=== PATIENT | male | born 1960 | race Caucasian/White ===

== ENCOUNTER 2016-06-24 16:21 | Inpatient (IN) | payer BC ==
[~2016-06-24] VITALS: Ht 182.9 cm; Wt 115.1 kg
[~2016-06-24 16:21] MED LIST: CLIN1CAP4 PO; GABA300C8 PO; INSLANTI SC; INSLISPI; LOSA50TA6 PO
[2016-06-24 17:09] LABS: Basophils # (auto) 0 uL; Basophils % (auto) 0.4 % (0.0-2.0); Eosinophils # (auto) 0.3 uL; Eosinophils % (auto) 4.2 % (0.0-7.0); Hematocrit 40.5 % (41.0-53.0); Hemoglobin 13.2 g/dL (13.5-17.5); Lymphocytes # (auto) 1.9 uL; Mean Corpuscular Hemoglobin 28.2 pg (28.0-32.0); Mean Corpuscular Hgb Conc. 32.5 g/dL (32.0-36.0); Mean Corpuscular Volume 86.7 fL (80.0-100.0); Mean Platelet Volume 7.4 fL (7.4-10.4); Monocytes # (auto) 0.5 uL; Neutrophils # (auto) 5.1 uL; Neutrophils % (auto) 65.4 % (37.0-80.0); Platelet Count (auto) 254 10^3/uL (140-450); Red Cell Distribution Width 15.8 % (11.6-16.0); White Blood Cell 7.8 10^3/uL (4.4-10.8)
[2016-06-24 17:27] LABS: Albumin 3.6 g/dL (3.4-5.0); BUN/Creatinine Ratio 29.6; Bilirubin, Total 0.2 mg/dL (0.2-1.0); Calcium 8.6 mg/dL (8.5-10.1); Potassium 3.8 mmol/L (3.5-5.1); Total Protein 7.3 g/dL (6.4-8.2)
[2016-06-24 17:33] LABS: INR 0.98 (0.9-1.15); Partial Thromboplastin Time 27.6 sec (22.64-33.71); Prothrombin Time 10.1 sec (9.37-12.3)
[2016-06-25] MEDS ORDERED: SODIUM CHLORIDE 0.9% 1,000 ML IV SCH (00:11)
[2016-06-25] MEDS ORDERED: DEXTROSE (50%) 50ML SYRG IV PRN (00:15)
[2016-06-25] MEDS ORDERED: ONDANSETRON HCL 4 MG/2 ML VIAL IV PRN (00:15)
[2016-06-25] MEDS ORDERED: HYDROcodone-ACET 5/325MG TAB PO PRN (00:15)
[2016-06-25] MEDS ORDERED: MORPHINE SULF INJ 2 MG/ML SYRINGE 1ML IV PRN (00:15)
[2016-06-25] MEDS ORDERED: ACETAMINOPHEN 325 MG TAB PO PRN (00:15)
[2016-06-25] MEDS ORDERED: cloNIDine HCL 0.1 MG TAB PO PRN (00:15)
[2016-06-25 01:30] VITALS: BP 156/93
[2016-06-25 02:29] VITALS: BP 156/93
[2016-06-25 05:30] VITALS: BP 164/80
[2016-06-25] MEDS: ACCU-CHEK COMFORT CURVE STRIP VI SCH ×2 (06:00→11:44)
[2016-06-25] MEDS: InsuLIN REG 1unit/0.01ml Soln (100units/ml) SC SCH ×2 (06:00→11:44)
[2016-06-25 09:00] VITALS: BP 171/101
[2016-06-25] MEDS ORDERED: FAMOTIDINE 20 MG TAB PO SCH (10:00)
[2016-06-25] MEDS ORDERED: NIFEdipine ER 30 MG TAB PO SCH (10:00)
[2016-06-25] MEDS ORDERED: LOSARTAN POTASSIUM 50 MG TAB PO SCH (10:00)
[2016-06-25] MEDS ORDERED: fentaNYL CITRATE 100 MCG/2 ML VL ONE (10:39)
[2016-06-25] MEDS ORDERED: ONDANSETRON HCL 4 MG/2 ML VIAL ONE (10:39)
[2016-06-25] MEDS ORDERED: MIDAZOLAM HCL 1MG/1ML-2 ML VIAL ONE (10:39)
[2016-06-25] MEDS ORDERED: SODIUM CHLORIDE LOCK 20 ML ONE (10:39)
[2016-06-25] MEDS ORDERED: PROPOFOL 10 MG/ML 20 ML IV ONE (10:39)
[2016-06-25] MEDS ORDERED: ceFAZolin 1GM/50ML D5W 50 ML IV ONE (10:43)
[2016-06-25] MEDS ORDERED: ceFAZolin 1GM VL ONE (11:56)
[2016-06-25] MEDS ORDERED: BUPIVACAINE 0.75% INJ 10ML MPV SDV IJ ONE (11:56)
[2016-06-25] MEDS ORDERED: ACCU-CHEK COMFORT CURVE STRIP VI ONE (12:15)
[2016-06-25] MEDS ORDERED: PROMETHAZINE HCL 25 MG/ML 1ML IM ONE (12:15)
[2016-06-25] MEDS ORDERED: HYDROmorphone HCL 2 MG/ML VL IV PRN (12:15)
[2016-06-25 17:07] VITALS: BP 151/91
[2016-06-25 17:15] VITALS: BP 151/91
== END 2016-06-25 17:15 | disposition home or self-care (01) | DRG 465 ==
LOC: ER 16:25 → OVERFLOW 16:26 → CENTRAL 06-25 01:31
PROVIDERS: ADMIT Nurse Practitioner; ATTEND Internal Medicine
PROC: 0JBR0ZZ Excision of Left Foot Subcutaneous Tissue and Fascia, Open Approach (ICD-10-PCS; 2016-06-25)
PROC: 0JBQ0ZZ Excision of Right Foot Subcutaneous Tissue and Fascia, Open Approach (ICD-10-PCS; 2016-06-25)
PROC: 0JRQ0KZ Replacement of Right Foot Subcutaneous Tissue and Fascia with Nonautologous Tissue Substitute, Open Approach (ICD-10-PCS; 2016-06-25)
PROC: 0JR Subcutaneous Tissue and Fascia, Replacement (ICD-10-PCS; principal; 2016-06-25 11:41)
DX: T87.53 Necrosis of amputation stump, right lower extremity (principal); T87.54 Necrosis of amputation stump, left lower extremity; E11.621 Type 2 diabetes mellitus with foot ulcer; L97.519 Non-pressure chronic ulcer of other part of right foot with unspecified severity; L97.529 Non-pressure chronic ulcer of other part of left foot with unspecified severity; E78.5 Hyperlipidemia, unspecified; E11.42 Type 2 diabetes mellitus with diabetic polyneuropathy; Y83.5 Amputation of limb(s) as the cause of abnormal reaction of the patient, or of later complication, without mention of misadventure at the time of the procedure; E11.65 Type 2 diabetes mellitus with hyperglycemia; I10 Essential (primary) hypertension; E66.9 Obesity, unspecified; Z82.49 Family history of ischemic heart disease and other diseases of the circulatory system; Z83.3 Family history of diabetes mellitus; Z88.1 Allergy status to other antibiotic agents; Z79.899 Other long term (current) drug therapy; Z79.4 Long term (current) use of insulin; Z98.890 Other specified postprocedural states; Z82.3 Family history of stroke; Z89.412 Acquired absence of left great toe; Z89.411 Acquired absence of right great toe; Z68.34 Body mass index [BMI] 34.0-34.9, adult
CPT/HCPCS: 36415; 80053; 82962; 83036; 85025; 85049; 85610; 85730; 87081; 94761; J0690; J2250; J2405; J2704; J3490; Q4126

== ENCOUNTER 2016-09-23 21:01 | Inpatient (IN) | payer BC ==
[~2016-09-23] VITALS: Ht 182.9 cm; Wt 109.3 kg
[~2016-09-23 21:01] MED LIST changes: -CLIN1CAP4 PO
[2016-09-23 21:32] LABS: Basophils # (auto) 0 uL; Basophils % (auto) 0.4 % (0.0-2.0); Eosinophils # (auto) 0.3 uL; Eosinophils % (auto) 3.2 % (0.0-7.0); Hematocrit 39.5 % (41.0-53.0); Hemoglobin 13.6 g/dL (13.5-17.5); Lymphocytes # (auto) 1.9 uL; Lymphocytes % (auto) 20.2 % (10.0-50.0); Mean Corpuscular Hemoglobin 29.8 pg (28.0-32.0); Mean Corpuscular Hgb Conc. 34.5 g/dL (32.0-36.0); Mean Corpuscular Volume 86.5 fL (80.0-100.0); Mean Platelet Volume 7.5 fL (7.4-10.4); Monocytes # (auto) 0.6 uL; Monocytes % (auto) 5.7 % (0.0-12.0); Neutrophils # (auto) 6.8 uL; Neutrophils % (auto) 70.5 % (37.0-80.0); Platelet Count (auto) 291 10^3/uL (140-450); Red Cell Distribution Width 13.4 % (11.6-16.0); White Blood Cell 9.6 10^3/uL (4.4-10.8)
[2016-09-23 21:42] LABS: INR 0.99 (0.9-1.15); Prothrombin Time 10.7 sec (9.37-12.3)
[2016-09-23 21:51] LABS: Albumin 3.3 g/dL (3.4-5.0); BUN/Creatinine Ratio 15.8; Calcium 8.4 mg/dL (8.5-10.1); Potassium 3.8 mmol/L (3.5-5.1)
[2016-09-23 21:54] LABS: Bilirubin, Total 0.6 mg/dL (0.2-1.0); Total Protein 7.1 g/dL (6.4-8.2)
[2016-09-23] MEDS ORDERED: SODIUM CHLORIDE 0.9% 1,000 ML IV ONE (22:15)
[2016-09-24] MEDS ORDERED: SODIUM CHLORIDE 0.9% 1,000 ML IV SCH (04:43)
[2016-09-24] MEDS ORDERED: HYDROcodone-ACET 5/325MG TAB PO PRN (04:45)
[2016-09-24] MEDS ORDERED: ONDANSETRON HCL 4 MG/2 ML VIAL IV PRN (04:45)
[2016-09-24] MEDS ORDERED: TEMAZEPAM 15 MG CAP PO PRN (04:45)
[2016-09-24] MEDS ORDERED: DEXTROSE (50%) 50ML SYRG IV PRN (04:45)
[2016-09-24] MEDS ORDERED: MORPHINE SULF INJ 2 MG/ML SYRINGE 1ML IV PRN (04:45)
[2016-09-24] MEDS ORDERED: ACETAMINOPHEN 325 MG TAB PO PRN (04:45)
[2016-09-24] MEDS: ACCU-CHEK COMFORT CURVE STRIP VI SCH ×3 (05:31→18:00)
[2016-09-24] MEDS: CLINDAMYCIN 600MG IV 50 ML IV SCH ×2 (05:42→13:29)
[2016-09-24] MEDS: InsuLIN REG 1unit/0.01ml Soln (100units/ml) SC SCH ×3 (05:45→18:00)
[2016-09-24] MEDS ORDERED: LOSARTAN POTASSIUM 50 MG TAB PO SCH (10:00)
[2016-09-24] MEDS ORDERED: NIFEdipine ER 30 MG TAB PO SCH (10:00)
[2016-09-24] MEDS ORDERED: FAMOTIDINE 20 MG TAB PO SCH (10:00)
[2016-09-24] MEDS ORDERED: ceFAZolin 1GM VL ONE ×2 (10:29→11:18)
[2016-09-24] MEDS ORDERED: ceFAZolin 1GM/50ML D5W 50 ML IV ONE (11:15)
[2016-09-24] MEDS ORDERED: MIDAZOLAM HCL 1MG/1ML-2 ML VIAL ONE ×2 (11:57→12:00)
[2016-09-24] MEDS ORDERED: PROPOFOL 10 MG/ML 20 ML IV ONE (11:57)
[2016-09-24] MEDS ORDERED: fentaNYL CITRATE 100 MCG/2 ML VL ONE (11:57)
[2016-09-24] MEDS ORDERED: ONDANSETRON HCL 4 MG/2 ML VIAL IV ONE (12:30)
[2016-09-24] MEDS ORDERED: hydrALAZINE HCL 20 MG/ML VL IV PRN (12:30)
[2016-09-24] MEDS ORDERED: HYDROmorphone HCL 2 MG/ML VL IV PRN (12:30)
[2016-09-24] MEDS ORDERED: ePHEDrine SULFATE 50 MG/ML AMP IV PRN (12:30)
[2016-09-24 17:06] VITALS: BP 155/99
== END 2016-09-24 19:00 | disposition home or self-care (01) | DRG 623 ==
LOC: ER 21:03 → OVERFLOW 21:04 → WEST WING 09-24 05:45
PROVIDERS: ADMIT Nurse Practitioner; ATTEND Internal Medicine
PROC: 0JBQ0ZZ Excision of Right Foot Subcutaneous Tissue and Fascia, Open Approach (ICD-10-PCS; 2016-09-24)
PROC: 0HRNXK3 Replacement of Left Foot Skin with Nonautologous Tissue Substitute, Full Thickness, External Approach (ICD-10-PCS; 2016-09-24)
PROC: 0HRMXK3 Replacement of Right Foot Skin with Nonautologous Tissue Substitute, Full Thickness, External Approach (ICD-10-PCS; 2016-09-24)
PROC: 0JBR0ZZ Excision of Left Foot Subcutaneous Tissue and Fascia, Open Approach (ICD-10-PCS; principal; 2016-09-24 11:54)
DX: E10.621 Type 1 diabetes mellitus with foot ulcer (principal); E87.1 Hypo-osmolality and hyponatremia; E44.1 Mild protein-calorie malnutrition; L97.519 Non-pressure chronic ulcer of other part of right foot with unspecified severity; L97.529 Non-pressure chronic ulcer of other part of left foot with unspecified severity; E78.5 Hyperlipidemia, unspecified; E10.65 Type 1 diabetes mellitus with hyperglycemia; E10.22 Type 1 diabetes mellitus with diabetic chronic kidney disease; E10.21 Type 1 diabetes mellitus with diabetic nephropathy; I12.9 Hypertensive chronic kidney disease with stage 1 through stage 4 chronic kidney disease, or unspecified chronic kidney disease; N18.3 Chronic kidney disease, stage 3 (moderate); Z82.3 Family history of stroke; Z82.49 Family history of ischemic heart disease and other diseases of the circulatory system; Z83.3 Family history of diabetes mellitus; Z89.422 Acquired absence of other left toe(s); Z89.421 Acquired absence of other right toe(s); Z88.1 Allergy status to other antibiotic agents; Z79.4 Long term (current) use of insulin; Z68.32 Body mass index [BMI] 32.0-32.9, adult
CPT/HCPCS: 36415; 71010; 73700; 80053; 82962; 83036; 85025; 85610; 87070; 87075; 87077; 87081; 87186; 87205; 96360; J0690; J1815; J2250; J2704; J3490

== ENCOUNTER → 2017-12-03 | Day surgery (SDC) | payer BC ==
[~2017-12-03] MED LIST changes: +GABA-339 PO; +GABA300C10 PO; -GABA300C8 PO; +KETAMINE HCL 1 ML ONE; +METF-370 PO; +MIDAZOLAM HCL 1MG/1ML-2 ML VIAL ONE; +MORPHINE SULF INJ 2 MG/ML SYRINGE 1ML IV PRN; +NALOXONE HCL 0.4 MG/ML VIAL IV PRN; +NIFE90TA25 PO; +ONDANSETRON HCL 4 MG/2 ML VIAL IV ONE; +PROPOFOL 10 MG/ML 20 ML IV ONE; +SIMV-8 PO; +ceFAZolin 1GM VL ONE; +ceFAZolin 1GM/50ML 50 ML IV ONE
[2017-12-03 11:32] LABS: Basophils # (auto) 0.1 uL; Basophils % (auto) 0.9 % (0.0-2.0); Eosinophils # (auto) 0.2 uL; Eosinophils % (auto) 3.6 % (0.0-7.0); Hemoglobin 14.6 g/dL (13.5-17.5); Lymphocytes # (auto) 1.7 uL; Lymphocytes % (auto) 27.7 % (10.0-50.0); Mean Corpuscular Hemoglobin 29.1 pg (28.0-32.0); Mean Corpuscular Hgb Conc. 33.3 g/dL (32.0-36.0); Mean Corpuscular Volume 87.5 fL (80.0-100.0); Monocytes # (auto) 0.4 uL; Monocytes % (auto) 7.1 % (0.0-12.0); Neutrophils # (auto) 3.6 uL; Neutrophils % (auto) 60.7 % (37.0-80.0); Nucleated Red Blood Cells % 0.1 %; Platelet Count (auto) 180 10^3/uL (140-450); Red Blood Cells 5.03 10^6/uL (4.5-5.90); Red Cell Distribution Width 13.8 % (11.8-14.3)
[2017-12-03 11:45] LABS: BUN/Creatinine Ratio 25.5; Calcium 8.6 mg/dL (8.5-10.1); Potassium 4.9 mmol/L (3.5-5.1)
[2017-12-03 11:46] LABS: INR 0.93 (0.9-1.15); Partial Thromboplastin Time 29.4 sec (23.78-33.04)
[2017-12-03 14:45] VITALS: BP 138/81
== END | disposition home or self-care (01) ==
LOC: SUR 08:00
PROVIDERS: ATTEND Podiatrist Foot & Ankle Surgery
DX: E11.621 Type 2 diabetes mellitus with foot ulcer (principal); L97.519 Non-pressure chronic ulcer of other part of right foot with unspecified severity; F10.99 Alcohol use, unspecified with unspecified alcohol-induced disorder; N18.9 Chronic kidney disease, unspecified; E11.22 Type 2 diabetes mellitus with diabetic chronic kidney disease; I12.9 Hypertensive chronic kidney disease with stage 1 through stage 4 chronic kidney disease, or unspecified chronic kidney disease; E11.40 Type 2 diabetes mellitus with diabetic neuropathy, unspecified; E78.5 Hyperlipidemia, unspecified; G47.33 Obstructive sleep apnea (adult) (pediatric); K21.9 Gastro-esophageal reflux disease without esophagitis; Z87.891 Personal history of nicotine dependence; Z88.1 Allergy status to other antibiotic agents; Z82.3 Family history of stroke; Z83.3 Family history of diabetes mellitus; Z79.84 Long term (current) use of oral hypoglycemic drugs; Z79.2 Long term (current) use of antibiotics; Z79.899 Other long term (current) drug therapy
CPT/HCPCS: 15004; 15275; 36415; 71045; 80048; 82962; 85025; 85610; 85730; 87070; 87075; 87205; 88304; 88312; 88313; C9354; J0690; J2250; J2704

== ENCOUNTER 2018-01-20 06:09 | Inpatient (IN) | payer BC ==
[~2018-01-20] VITALS: Ht 182.9 cm; Wt 113.0 kg
[~2018-01-20 06:09] MED LIST changes: -GABA-339 PO; -KETAMINE HCL 1 ML ONE; -METF-370 PO; -MIDAZOLAM HCL 1MG/1ML-2 ML VIAL ONE; -MORPHINE SULF INJ 2 MG/ML SYRINGE 1ML IV PRN; -NALOXONE HCL 0.4 MG/ML VIAL IV PRN; -NIFE90TA25 PO; -ONDANSETRON HCL 4 MG/2 ML VIAL IV ONE; -PROPOFOL 10 MG/ML 20 ML IV ONE; -SIMV-8 PO; -ceFAZolin 1GM VL ONE; -ceFAZolin 1GM/50ML 50 ML IV ONE
[2018-01-20 08:12] LABS: Basophils # (auto) 0 uL; Basophils % (auto) 0.6 % (0.0-2.0); Eosinophils # (auto) 0.2 uL; Eosinophils % (auto) 2.4 % (0.0-7.0); Hematocrit 39.9 % (41.0-53.0); Hemoglobin 13.8 g/dL (13.5-17.5); Lymphocytes # (auto) 1.7 uL; Lymphocytes % (auto) 20.8 % (10.0-50.0); Mean Corpuscular Hgb Conc. 34.6 g/dL (32.0-36.0); Mean Corpuscular Volume 86.6 fL (80.0-100.0); Monocytes # (auto) 0.5 uL; Monocytes % (auto) 6.3 % (0.0-12.0); Neutrophils # (auto) 5.7 uL; Neutrophils % (auto) 69.9 % (37.0-80.0); Platelet Count (auto) 222 10^3/uL (140-450); Red Blood Cells 4.61 10^6/uL (4.5-5.90); Red Cell Distribution Width 13.5 % (11.8-14.3); White Blood Cell 8.2 10^3/uL (4.4-10.8)
[2018-01-20 08:23] LABS: Albumin 3.4 g/dL (3.4-5.0); BUN/Creatinine Ratio 19.2; Bilirubin, Total 0.5 mg/dL (0.2-1.0)
[2018-01-20] MEDS ORDERED: SODIUM CHLORIDE 0.9% 1,000 ML IV ONE (08:40)
[2018-01-20 11:29] LABS: INR 0.89 (0.9-1.15); Partial Thromboplastin Time 27.5 sec (23.78-33.04); Prothrombin Time 9.6 sec (9.27-12.13)
[2018-01-20] MEDS ORDERED: InsuLIN REG 1unit/0.01ml Soln (100units/ml) IV ONE ×2 (12:15→13:45)
[2018-01-20] MEDS ORDERED: InsuLIN REG 1unit/0.01ml Soln (100units/ml) SC ONE (13:45)
[2018-01-20] MEDS ORDERED: ACETAMINOPHEN 500 MG TAB PO PRN (15:00)
[2018-01-20] MEDS ORDERED: PROMETHAZINE HCL 25 MG/ML 1ML IV PRN (15:00)
[2018-01-20] MEDS ORDERED: NITROGLYCERIN 0.4 MG SL TAB SL PRN (15:00)
[2018-01-20] MEDS ORDERED: MORPHINE SULF INJ 2 MG/ML SYRINGE 1ML IV PRN ×2 (15:00)
[2018-01-20] MEDS ORDERED: HYDROcodone-ACET 5/325MG TAB PO PRN (15:00)
[2018-01-20] MEDS ORDERED: DEXTROSE (50%) 50ML SYRG IV PRN (15:00)
[2018-01-20] MEDS ORDERED: LORazepam 0.5 MG TAB PO PRN (15:00)
[2018-01-20] MEDS ORDERED: TEMAZEPAM 15 MG CAP PO PRN (15:00)
[2018-01-20] MEDS ORDERED: LACTULOSE 20Gm/30ML SOLN PO PRN (15:00)
[2018-01-20] MEDS: cefTRIAXone 1GM/10ml IVPUSH 10 ML IV SCH (15:27)
[2018-01-20] MEDS: SODIUM CHLORIDE 0.9% 1,000 ML IV SCH (15:27)
[2018-01-20] MEDS: CLINDAMYCIN 600MG IV 50 ML IV SCH ×2 (15:27→21:20)
[2018-01-20] MEDS: InsuLIN REG 1unit/0.01ml Soln (100units/ml) SC SCH ×2 (16:30→21:20)
[2018-01-20] MEDS: ACCU-CHEK COMFORT CURVE STRIP VI SCH ×3 (16:30→23:58)
[2018-01-20 17:01] VITALS: BP 139/91
[2018-01-20] MEDS ORDERED: GABA-339 PO (17:25)
[2018-01-20] MEDS ORDERED: LOSA50TA6 PO (17:25)
[2018-01-20] MEDS ORDERED: METF-370 PO (17:25)
[2018-01-20] MEDS ORDERED: NIFE90TA25 PO (17:25)
[2018-01-20] MEDS ORDERED: SIMV-8 PO (17:25)
[2018-01-20 19:46] LABS: Urine Bacteria NONE SEEN /hpf (None Seen); Urine Blood Negative /uL (Negative); Urine Specific Gravity 1.023 (1.001-1.035); Urine WBC 1 /hpf (0 - 3)
[2018-01-20 22:00] VITALS: BP 124/69
[2018-01-21] MEDS: InsuLIN REG 1unit/0.01ml Soln (100units/ml) SC SCH ×4 (00:05→11:23)
[2018-01-21] MEDS: SODIUM CHLORIDE 0.9% 1,000 ML IV SCH ×2 (00:48→02:30)
[2018-01-21] MEDS: ACCU-CHEK COMFORT CURVE STRIP VI SCH ×3 (04:04→11:23)
[2018-01-21 05:13] VITALS: BP 137/80
[2018-01-21 05:47] LABS: Basophils # (auto) 0 uL; Basophils % (auto) 0.4 % (0.0-2.0); Eosinophils # (auto) 0.1 uL; Eosinophils % (auto) 1.6 % (0.0-7.0); Hematocrit 37.5 % (41.0-53.0); Hemoglobin 13.1 g/dL (13.5-17.5); Lymphocytes # (auto) 1.5 uL; Lymphocytes % (auto) 18.4 % (10.0-50.0); Mean Corpuscular Hemoglobin 30.6 pg (28.0-32.0); Mean Corpuscular Volume 87.3 fL (80.0-100.0); Monocytes # (auto) 0.5 uL; Neutrophils # (auto) 6.2 uL; Neutrophils % (auto) 73.6 % (37.0-80.0); Nucleated Red Blood Cells % 0.1 %; Platelet Count (auto) 190 10^3/uL (140-450); Red Blood Cells 4.29 10^6/uL (4.5-5.90); Red Cell Distribution Width 14.3 % (11.8-14.3); White Blood Cell 8.4 10^3/uL (4.4-10.8)
[2018-01-21] MEDS: CLINDAMYCIN 600MG IV 50 ML IV SCH ×2 (05:57→15:10)
[2018-01-21 06:17] LABS: Calcium 8.1 mg/dL (8.5-10.1); Potassium 3.7 mmol/L (3.5-5.1)
[2018-01-21 06:20] LABS: Albumin 2.9 g/dL (3.4-5.0); BUN/Creatinine Ratio 22.5
[2018-01-21 06:23] LABS: Bilirubin, Total 0.5 mg/dL (0.2-1.0)
[2018-01-21 08:18] VITALS: BP 138/84
[2018-01-21] MEDS: cefTRIAXone 1GM/10ml IVPUSH 10 ML IV SCH (08:39)
[2018-01-21] MEDS ORDERED: PANTOPRAZOLE 40 MG TAB PO SCH (10:00)
[2018-01-21] MEDS ORDERED: ENOXAPARIN SOD 40 MG/0.4 ML SYRINGE SC SCH (10:00)
[2018-01-21] MEDS ORDERED: ceFAZolin 1GM VL ONE (11:49)
[2018-01-21] MEDS ORDERED: BUPIVACAINE 0.75% INJ 10ML MPV SDV IJ ONE (11:49)
[2018-01-21 11:58] VITALS: BP 128/82
[2018-01-21] MEDS ORDERED: ceFAZolin 1GM/50ML 50 ML IV ONE (12:02)
[2018-01-21] MEDS ORDERED: MEPERIDINE HCL (50 MG/ML) 1 ML VIAL ONE (12:19)
[2018-01-21] MEDS ORDERED: fentaNYL CITRATE 100 MCG/2 ML VL ONE (12:19)
[2018-01-21] MEDS ORDERED: MIDAZOLAM HCL 1MG/1ML-2 ML VIAL ONE (12:19)
[2018-01-21] MEDS ORDERED: PROPOFOL 10 MG/ML 20 ML IV ONE (12:36)
[2018-01-21] MEDS ORDERED: LABETALOL HCL 5 MG/ML 4ML SYRINGE IV PRN (12:45)
[2018-01-21] MEDS ORDERED: ePHEDrine SULFATE 50 MG/ML AMP IV PRN (12:45)
[2018-01-21] MEDS ORDERED: ONDANSETRON HCL 4 MG/2 ML VIAL IV ONE (12:45)
[2018-01-21] MEDS ORDERED: HYDROmorphone HCL 2 MG/ML VL IV PRN (12:45)
[2018-01-21] MEDS ORDERED: MORPHINE SULFATE 4 MG/ML SYR/VIAL IV PRN (12:45)
[2018-01-21] MEDS ORDERED: ACCU-CHEK COMFORT CURVE STRIP VI ONE (12:45)
[2018-01-21] MEDS ORDERED: MIDAZOLAM HCL 1MG/1ML-2 ML VIAL IV PRN (12:45)
[2018-01-21] MEDS ORDERED: KETOROLAC TROMETH 30 MG/ML 1ML VIAL IV ONE (12:45)
[2018-01-21 13:15] VITALS: BP 134/90
[2018-01-21] MEDS ORDERED: MORPHINE SULFATE 4 MG/ML SYR/VIAL IV ONE (14:00)
== END 2018-01-21 17:58 | disposition home or self-care (01) | DRG 573 ==
LOC: ER 06:11 → TELE 06:12 → TELE-EAST 16:56
PROVIDERS: ADMIT Internal Medicine; ATTEND Internal Medicine
PROC: 0JBQ0ZZ Excision of Right Foot Subcutaneous Tissue and Fascia, Open Approach (ICD-10-PCS; 2018-01-21)
PROC: 0HRMXK3 Replacement of Right Foot Skin with Nonautologous Tissue Substitute, Full Thickness, External Approach (ICD-10-PCS; principal; 2018-01-21 12:10)
DX: L03.115 Cellulitis of right lower limb (principal); N17.0 Acute kidney failure with tubular necrosis; L97.519 Non-pressure chronic ulcer of other part of right foot with unspecified severity; E11.621 Type 2 diabetes mellitus with foot ulcer; E11.21 Type 2 diabetes mellitus with diabetic nephropathy; E66.9 Obesity, unspecified; E11.65 Type 2 diabetes mellitus with hyperglycemia; E78.5 Hyperlipidemia, unspecified; I10 Essential (primary) hypertension; Z82.3 Family history of stroke; Z82.49 Family history of ischemic heart disease and other diseases of the circulatory system; Z83.3 Family history of diabetes mellitus; Z89.419 Acquired absence of unspecified great toe; Z88.1 Allergy status to other antibiotic agents; Z79.4 Long term (current) use of insulin; Z79.899 Other long term (current) drug therapy; Z68.33 Body mass index [BMI] 33.0-33.9, adult
CPT/HCPCS: 36415; 71046; 73630; 80053; 80061; 81001; 82962; 83036; 83735; 84443; 85025; 85610; 85652; 85730; 87040; 87081; 87086; 93005; 96361; 96365; 96372; 96375; J0690; J0696; J1815; J2250; J2704; J3490

== ENCOUNTER 2018-04-20 19:20 | Inpatient (IN) | payer BC ==
[~2018-04-20] VITALS: Ht 182.9 cm; Wt 100.8 kg
[~2018-04-20 19:20] MED LIST changes: +GABA-339 PO; -GABA300C10 PO; -INSLANTI SC; -INSLISPI; +LOSA-46 PO; -LOSA50TA6 PO; +METF-370 PO; +NIFE90TA25 PO; +SIMV-8 PO
[2018-04-20 20:37] LABS: Basophils # (auto) 0.1 uL; Basophils % (auto) 0.7 % (0.0-2.0); Eosinophils # (auto) 0.2 uL; Eosinophils % (auto) 2.4 % (0.0-7.0); Hematocrit 41.8 % (41.0-53.0); Hemoglobin 14.6 g/dL (13.5-17.5); Lymphocytes % (auto) 22.9 % (10.0-50.0); Mean Corpuscular Hemoglobin 30.5 pg (28.0-32.0); Mean Corpuscular Volume 87.2 fL (80.0-100.0); Monocytes # (auto) 0.5 uL; Monocytes % (auto) 6.4 % (0.0-12.0); Neutrophils # (auto) 5.8 uL; Neutrophils % (auto) 67.6 % (37.0-80.0); Nucleated Red Blood Cells % 0.1 %; Platelet Count (auto) 230 10^3/uL (140-450); Red Blood Cells 4.79 10^6/uL (4.5-5.90); Red Cell Distribution Width 13.3 % (11.8-14.3); White Blood Cell 8.6 10^3/uL (4.4-10.8)
[2018-04-20 21:00] LABS: Albumin 3.6 g/dL (3.4-5.0); Calcium 8.7 mg/dL (8.5-10.1); Potassium 3.7 mmol/L (3.5-5.1)
[2018-04-20 21:04] LABS: BUN/Creatinine Ratio 17.4; Bilirubin, Total 0.4 mg/dL (0.2-1.0); Total Protein 7.2 g/dL (6.4-8.2)
[2018-04-20 21:13] LABS: INR 0.89 (0.9-1.15); Partial Thromboplastin Time 29.4 sec (23.78-33.04); Prothrombin Time 9.6 sec (9.27-12.13)
[2018-04-20] MEDS ORDERED: DEXTROSE (50%) 50ML SYRG IV PRN (23:15)
[2018-04-20] MEDS ORDERED: SODIUM CHLORIDE 0.9% 1,000 ML IV ONE (23:15)
[2018-04-20] MEDS ORDERED: HYDROcodone-ACET 5/325MG TAB PO PRN (23:15)
[2018-04-20] MEDS ORDERED: ONDANSETRON HCL 4 MG/2 ML VIAL IV PRN (23:15)
[2018-04-20] MEDS ORDERED: ACETAMINOPHEN 500 MG TAB PO PRN (23:15)
[2018-04-21] VITALS (8 sets, daily range): BP systolic 117–153; BP diastolic 63–90
[2018-04-21] MEDS: InsuLIN REG 1unit/0.01ml Soln (100units/ml) SC SCH ×4 (00:18→18:00)
[2018-04-21] MEDS: ACCU-CHEK COMFORT CURVE STRIP VI SCH ×4 (00:18→18:00)
[2018-04-21 06:22] LABS: Basophils # (auto) 0 uL; Basophils % (auto) 0.6 % (0.0-2.0); Eosinophils # (auto) 0.2 uL; Eosinophils % (auto) 3.2 % (0.0-7.0); Hematocrit 37.5 % (41.0-53.0); Hemoglobin 13.2 g/dL (13.5-17.5); Lymphocytes # (auto) 1.8 uL; Lymphocytes % (auto) 23.8 % (10.0-50.0); Mean Corpuscular Hemoglobin 30.5 pg (28.0-32.0); Mean Corpuscular Hgb Conc. 35.3 g/dL (32.0-36.0); Mean Corpuscular Volume 86.5 fL (80.0-100.0); Monocytes # (auto) 0.5 uL; Neutrophils # (auto) 4.9 uL; Neutrophils % (auto) 65.4 % (37.0-80.0); Nucleated Red Blood Cells % 0.1 %; Platelet Count (auto) 207 10^3/uL (140-450); Red Blood Cells 4.33 10^6/uL (4.5-5.90); Red Cell Distribution Width 13.1 % (11.8-14.3); White Blood Cell 7.5 10^3/uL (4.4-10.8)
[2018-04-21 06:42] LABS: BUN/Creatinine Ratio 22.9; Calcium 8.2 mg/dL (8.5-10.1); Potassium 3.6 mmol/L (3.5-5.1)
[2018-04-21] MEDS: NIFEdipine ER 30 MG TAB PO SCH (09:35)
[2018-04-21] MEDS: LOSARTAN POTASSIUM 50 MG TAB PO SCH (09:35)
[2018-04-21] MEDS ORDERED: CLINDAMYCIN 600MG IV 50 ML IV ONE (13:06)
[2018-04-21] MEDS ORDERED: fentaNYL CITRATE 100 MCG/2 ML VL ONE (13:34)
[2018-04-21] MEDS ORDERED: MIDAZOLAM HCL 1MG/1ML-2 ML VIAL ONE (13:34)
[2018-04-21] MEDS ORDERED: PROPOFOL 10 MG/ML 20 ML IV ONE (13:38)
[2018-04-21] MEDS ORDERED: fentaNYL CITRATE 100 MCG/2 ML VL IV ONE (14:00)
[2018-04-21] MEDS ORDERED: hydrALAZINE HCL 20 MG/ML VL IV PRN (14:00)
[2018-04-21] MEDS ORDERED: ePHEDrine SULFATE 50 MG/ML AMP IV PRN (14:00)
[2018-04-21] MEDS ORDERED: ONDANSETRON HCL 4 MG/2 ML VIAL IV ONE (14:00)
[2018-04-21] MEDS: metFORMIN HYDROCHLORIDE 500 MG TAB PO SCH (18:43)
[2018-04-21] MEDS: ceFAZolin 1GM/50ML 50 ML IV SCH (21:30)
[2018-04-22] MEDS: InsuLIN REG 1unit/0.01ml Soln (100units/ml) SC SCH ×2 (00:30→06:09)
[2018-04-22] MEDS: ACCU-CHEK COMFORT CURVE STRIP VI SCH ×2 (00:30→06:09)
[2018-04-22 05:04] VITALS: BP 134/80
[2018-04-22] MEDS: ceFAZolin 1GM/50ML 50 ML IV SCH (06:08)
[2018-04-22] MEDS: metFORMIN HYDROCHLORIDE 500 MG TAB PO SCH (06:42)
[2018-04-22 08:00] VITALS: BP 130/84
[2018-04-22 09:00] VITALS: BP 153/89
[2018-04-22] MEDS: LOSARTAN POTASSIUM 50 MG TAB PO SCH (09:20)
[2018-04-22] MEDS: NIFEdipine ER 30 MG TAB PO SCH (09:21)
[2018-04-22 09:42] VITALS: BP 153/89
== END 2018-04-22 14:33 | disposition home or self-care (01) | DRG 983 ==
LOC: ER 19:20 → OVERFLOW 23:10 → EAST 23:47
PROVIDERS: ADMIT Nurse Practitioner Family; ATTEND Family Medicine
PROC: 0HRMXK3 Replacement of Right Foot Skin with Nonautologous Tissue Substitute, Full Thickness, External Approach (ICD-10-PCS; principal; 2018-04-21 13:30)
DX: E11.621 Type 2 diabetes mellitus with foot ulcer (principal); L97.519 Non-pressure chronic ulcer of other part of right foot with unspecified severity; E78.5 Hyperlipidemia, unspecified; I10 Essential (primary) hypertension; Z79.84 Long term (current) use of oral hypoglycemic drugs; Z82.3 Family history of stroke; Z82.49 Family history of ischemic heart disease and other diseases of the circulatory system; Z83.3 Family history of diabetes mellitus; Z89.411 Acquired absence of right great toe; Z88.1 Allergy status to other antibiotic agents; Z79.899 Other long term (current) drug therapy; Z89.412 Acquired absence of left great toe
CPT/HCPCS: 36415; 71046; 73620; 80048; 80053; 82962; 83036; 85025; 85610; 85730; 87070; 87075; 87081; 87205; 93005; 94761; 96361; 96365; G0378; J0690; J1815; J2250; J2704; J3490

== ENCOUNTER → 2018-07-13 | Outpatient (CLI) | payer BC | END | disposition home or self-care (01) | LOC: XY 07:27 | PROVIDERS: ATTEND Podiatrist | DX: E11.621 Type 2 diabetes mellitus with foot ulcer (principal); Z89.411 Acquired absence of right great toe | CPT/HCPCS: 73620; 78315; A9503 ==

== ENCOUNTER → 2018-12-27 | Outpatient (CLI) | payer BC ==
[~2018-12-27] MED LIST changes: -LOSA-46 PO; +LOSA-69 PO
== END | disposition home or self-care (01) ==
LOC: LAB 15:00
PROVIDERS: ATTEND Podiatrist
DX: E11.621 Type 2 diabetes mellitus with foot ulcer (principal)

== ENCOUNTER → 2019-01-11 | Outpatient (CLI) | payer BC | END | disposition home or self-care (01) | LOC: Rad HDHVI 14:47 | PROVIDERS: ATTEND Internal Medicine Cardiovascular Disease | DX: I71.2 Thoracic aortic aneurysm, without rupture (principal); I73.9 Peripheral vascular disease, unspecified; I10 Essential (primary) hypertension; R07.89 Other chest pain; M79.604 Pain in right leg; M79.605 Pain in left leg | CPT/HCPCS: 93306; 93926 ==

== ENCOUNTER → 2019-01-20 | Outpatient (CLI) | payer BC ==
[~2019-01-20] VITALS: Ht 182.9 cm; Wt 102.1 kg
[~2019-01-20] MED LIST changes: +ADENOSINE 86 MG in GIVE UN-DILUTED 0 ML IV ONE; +ADENOSINE 90 MG/30 ML INJ IV ONE
== END | disposition home or self-care (01) ==
LOC: Rad HDHVI 13:51
PROVIDERS: ATTEND Internal Medicine Cardiovascular Disease
DX: S98.139A Complete traumatic amputation of one unspecified lesser toe, initial encounter (principal); M79.89 Other specified soft tissue disorders; L98.499 Non-pressure chronic ulcer of skin of other sites with unspecified severity; E11.42 Type 2 diabetes mellitus with diabetic polyneuropathy; E11.59 Type 2 diabetes mellitus with other circulatory complications; R07.89 Other chest pain; I73.9 Peripheral vascular disease, unspecified; X58.XXXA Exposure to other specified factors, initial encounter; Y93.89 Activity, other specified; Y92.89 Other specified places as the place of occurrence of the external cause; Y99.8 Other external cause status
CPT/HCPCS: 78452; 93005; 96374; 96375; A9500; J0153

== ENCOUNTER → 2019-02-23 | Outpatient (CLI) | payer BC ==
[~2019-02-23] MED LIST changes: -ADENOSINE 86 MG in GIVE UN-DILUTED 0 ML IV ONE; -ADENOSINE 90 MG/30 ML INJ IV ONE
[2019-02-23 12:32] LABS: Basophils # (auto) 0.1 uL; Basophils % (auto) 1.1 % (0.0-2.0); Eosinophils # (auto) 0.2 uL; Eosinophils % (auto) 2.2 % (0.0-7.0); Hematocrit 39.8 % (41.0-53.0); Hemoglobin 13.9 g/dL (13.5-17.5); Lymphocytes # (auto) 1.6 uL; Mean Corpuscular Hemoglobin 30.1 pg (28.0-32.0); Mean Corpuscular Hgb Conc. 34.8 g/dL (32.0-36.0); Mean Corpuscular Volume 86.4 fL (80.0-100.0); Monocytes # (auto) 0.4 uL; Monocytes % (auto) 5.3 % (0.0-12.0); Neutrophils # (auto) 5.7 uL; Neutrophils % (auto) 71.4 % (37.0-80.0); Nucleated Red Blood Cells % 0.1 %; Platelet Count (auto) 226 10^3/uL (140-450); Red Cell Distribution Width 14.2 % (11.8-14.3)
[2019-02-23 12:42] LABS: Urine Blood Negative /uL (Negative); Urine Specific Gravity 1.011 (1.001-1.035)
[2019-02-23 12:49] LABS: INR < 0.93 (0.9-1.15); Partial Thromboplastin Time 28.5 sec (23.64-32.05)
[2019-02-23 12:52] LABS: Calcium 8.8 mg/dL (8.5-10.1); Potassium 4.2 mmol/L (3.5-5.1)
[2019-02-23 12:58] LABS: Albumin 3.8 g/dL (3.4-5.0); BUN/Creatinine Ratio 19.6; Bilirubin, Total 0.5 mg/dL (0.2-1.0); Total Protein 7.5 g/dL (6.4-8.2)
== END | disposition home or self-care (01) ==
LOC: LAB 12:13
DX: Z01.82 Encounter for allergy testing (principal); H25.11 Age-related nuclear cataract, right eye; D68.318 Other hemorrhagic disorder due to intrinsic circulating anticoagulants, antibodies, or inhibitors; Z79.01 Long term (current) use of anticoagulants
CPT/HCPCS: 36415; 80053; 81003; 85025; 85610; 85730

== ENCOUNTER → 2019-03-24 | Outpatient (CLI) | payer BC ==
[2019-03-24 08:00] LABS: Basophils # (auto) 0 uL; Basophils % (auto) 0.4 % (0.0-2.0); Eosinophils # (auto) 0.2 uL; Eosinophils % (auto) 3.3 % (0.0-7.0); Hematocrit 41.1 % (41.0-53.0); Hemoglobin 14.3 g/dL (13.5-17.5); Lymphocytes # (auto) 1.4 uL; Lymphocytes % (auto) 21.1 % (10.0-50.0); Mean Corpuscular Hemoglobin 31.1 pg (28.0-32.0); Mean Corpuscular Hgb Conc. 34.8 g/dL (32.0-36.0); Mean Corpuscular Volume 89.3 fL (80.0-100.0); Monocytes # (auto) 0.4 uL; Monocytes % (auto) 6.1 % (0.0-12.0); Neutrophils # (auto) 4.7 uL; Neutrophils % (auto) 69.1 % (37.0-80.0); Platelet Count (auto) 249 10^3/uL (140-450); Red Cell Distribution Width 13.6 % (11.8-14.3); Urine Bacteria NONE SEEN /hpf (None Seen); Urine Blood Negative /uL (Negative); Urine Mucus FEW (None Seen); Urine Specific Gravity 1.018 (1.001-1.035); Urine WBC 2 /hpf (0 - 3); White Blood Cell 6.8 10^3/uL (4.4-10.8)
[2019-03-24 08:21] LABS: Albumin 3.8 g/dL (3.4-5.0); Calcium 9.1 mg/dL (8.5-10.1); Potassium 4.5 mmol/L (3.5-5.1)
[2019-03-24 08:29] LABS: Bilirubin, Total 0.4 mg/dL (0.2-1.0); Total Protein 7.7 g/dL (6.4-8.2)
== END | disposition home or self-care (01) ==
LOC: LAB 07:35
PROVIDERS: ATTEND Physician Assistant
DX: I12.9 Hypertensive chronic kidney disease with stage 1 through stage 4 chronic kidney disease, or unspecified chronic kidney disease (principal); E11.22 Type 2 diabetes mellitus with diabetic chronic kidney disease; N18.9 Chronic kidney disease, unspecified; N52.9 Male erectile dysfunction, unspecified; E11.42 Type 2 diabetes mellitus with diabetic polyneuropathy; E11.621 Type 2 diabetes mellitus with foot ulcer
CPT/HCPCS: 36415; 80053; 80061; 81001; 83036; 84403; 85025

== ENCOUNTER → 2019-05-05 | Outpatient (CLI) | payer BC | END | disposition home or self-care (01) | LOC: LAB 15:43 | PROVIDERS: ATTEND Urology | DX: R97.20 Elevated prostate specific antigen [PSA] (principal) | CPT/HCPCS: 84154 ==

== ENCOUNTER → 2019-06-07 | Outpatient (CLI) | payer BC ==
[2019-06-07 15:29] LABS: Basophils # (auto) 0.1 uL; Basophils % (auto) 0.9 % (0.0-2.0); Eosinophils # (auto) 0.2 uL; Eosinophils % (auto) 2.8 % (0.0-7.0); Hematocrit 42.8 % (41.0-53.0); Hemoglobin 14.7 g/dL (13.5-17.5); Lymphocytes # (auto) 1.5 uL; Mean Corpuscular Hemoglobin 30.5 pg (28.0-32.0); Mean Corpuscular Hgb Conc. 34.4 g/dL (32.0-36.0); Mean Corpuscular Volume 88.5 fL (80.0-100.0); Monocytes # (auto) 0.5 uL; Monocytes % (auto) 7.3 % (0.0-12.0); Neutrophils # (auto) 5.1 uL; Platelet Count (auto) 236 10^3/uL (140-450); Red Blood Cells 4.83 10^6/uL (4.5-5.90); Red Cell Distribution Width 13.6 % (11.8-14.3); White Blood Cell 7.3 10^3/uL (4.4-10.8)
[2019-06-07 15:48] LABS: Albumin 3.8 g/dL (3.4-5.0); Calcium 8.6 mg/dL (8.5-10.1); Potassium 4.6 mmol/L (3.5-5.1)
[2019-06-07 15:51] LABS: BUN/Creatinine Ratio 19.6; Bilirubin, Total 0.4 mg/dL (0.2-1.0); INR 0.94 (0.9-1.15); Partial Thromboplastin Time 28.7 sec (23.64-32.05); Total Protein 7.8 g/dL (6.4-8.2)
== END | disposition home or self-care (01) ==
LOC: LAB 15:16
PROVIDERS: ATTEND Physician Assistant
DX: Z01.818 Encounter for other preprocedural examination (principal); E11.9 Type 2 diabetes mellitus without complications
CPT/HCPCS: 36415; 80053; 85025; 85610; 85730

== ENCOUNTER 2019-06-16 07:41 | Day surgery (SDC) | payer BC ==
[~2019-06-16] VITALS: Ht 182.9 cm; Wt 104.3 kg
[~2019-06-16 07:41] MED LIST changes: +EMPA1TAB3 PO; +FURO1TAB31 PO; -SIMV-8 PO
[2019-06-16] MEDS ORDERED: IOHEXOL 350 MG/ML 100ML IJ ONE (11:36)
[2019-06-16] MEDS ORDERED: LIDOCAINE 2%HCL (LOCAL ANESTH.) INJ 20ML MDV ONE ×2 (11:36→12:02)
[2019-06-16] MEDS ORDERED: fentaNYL CITRATE 100 MCG/2 ML VL ONE ×2 (11:46→12:02)
[2019-06-16] MEDS ORDERED: ANGIOMAX 250 MG VIAL IV ONE (11:46)
[2019-06-16] MEDS ORDERED: SODIUM CHL 0.9% 0 ML ONE (11:46)
[2019-06-16] MEDS ORDERED: MIDAZOLAM HCL 1MG/1ML-2 ML VIAL ONE ×2 (11:46→12:02)
== END 2019-06-16 15:15 | disposition home or self-care (01) ==
LOC: CATH 07:41
PROVIDERS: ATTEND Internal Medicine Cardiovascular Disease
DX: I73.9 Peripheral vascular disease, unspecified (principal); E11.622 Type 2 diabetes mellitus with other skin ulcer; L97.818 Non-pressure chronic ulcer of other part of right lower leg with other specified severity; E11.21 Type 2 diabetes mellitus with diabetic nephropathy; E11.40 Type 2 diabetes mellitus with diabetic neuropathy, unspecified; E78.5 Hyperlipidemia, unspecified; I10 Essential (primary) hypertension; E66.9 Obesity, unspecified; Z79.84 Long term (current) use of oral hypoglycemic drugs; Z87.891 Personal history of nicotine dependence; Z68.31 Body mass index [BMI] 31.0-31.9, adult; Z79.899 Other long term (current) drug therapy
CPT/HCPCS: 36247; 75716; C1760; C1769; C1887; C1894; J1644; J2250; J3010; Q9967; 99152; 99153

== ENCOUNTER 2019-07-10 12:22 | Inpatient (IN) | payer BC ==
[~2019-07-10] VITALS: Ht 182.9 cm; Wt 107.9 kg
[2019-07-10] MEDS ORDERED: SODIUM CHLORIDE 0.9% 1,000 ML IV ONE ×2 (13:54→16:45)
[2019-07-10 14:30] LABS: Basophils # (auto) 0 uL; Basophils % (auto) 0.3 % (0.0-2.0); Eosinophils # (auto) 0.3 uL; Eosinophils % (auto) 2.4 % (0.0-7.0); Hematocrit 43.3 % (41.0-53.0); Lymphocytes # (auto) 1.7 uL; Mean Corpuscular Hemoglobin 29.8 pg (28.0-32.0); Mean Corpuscular Hgb Conc. 34.6 g/dL (32.0-36.0); Mean Corpuscular Volume 86.2 fL (80.0-100.0); Monocytes # (auto) 0.6 uL; Monocytes % (auto) 5.5 % (0.0-12.0); Neutrophils # (auto) 8.2 uL; Neutrophils % (auto) 75.8 % (37.0-80.0); Nucleated Red Blood Cells % 0.1 %; Platelet Count (auto) 308 10^3/uL (140-450); Red Blood Cells 5.02 10^6/uL (4.5-5.90); Red Cell Distribution Width 13.6 % (11.8-14.3); White Blood Cell 10.8 10^3/uL (4.4-10.8)
[2019-07-10 14:49] LABS: Albumin 3.5 g/dL (3.4-5.0); Calcium 9.4 mg/dL (8.5-10.1)
[2019-07-10 14:52] LABS: BUN/Creatinine Ratio 23.9; Bilirubin, Total 0.2 mg/dL (0.2-1.0)
[2019-07-10] MEDS ORDERED: HYDROcodone-ACET 5/325MG TAB PO PRN (16:45)
[2019-07-10] MEDS ORDERED: ACETAMINOPHEN 500 MG TAB PO PRN (16:45)
[2019-07-10] MEDS ORDERED: NITROGLYCERIN 0.4 MG SL TAB SL PRN (16:45)
[2019-07-10] MEDS ORDERED: DEXTROSE (50%) 50ML SYRG IV PRN (16:45)
[2019-07-10] MEDS ORDERED: ONDANSETRON HCL 4 MG/2 ML VIAL IV PRN (16:45)
[2019-07-10] MEDS ORDERED: MORPHINE SULF INJ 2 MG/ML SYRINGE 1ML IV PRN ×2 (16:45)
[2019-07-10] MEDS ORDERED: cefTRIAXone 1GM/50ML D5W 50 ML IV ONE (17:00)
[2019-07-10] MEDS: ACCU-CHEK COMFORT CURVE STRIP VI SCH ×2 (17:29→22:35)
[2019-07-10] MEDS: InsuLIN REG 1unit/0.01ml Soln (100units/ml) SC SCH ×2 (17:42→22:35)
[2019-07-10] MEDS ORDERED: PIPERACILLIN-TAZOB 3.375GM 100 ML IV SCH (18:00)
[2019-07-10] MEDS: metFORMIN HYDROCHLORIDE 500 MG TAB PO SCH (18:00)
--- NOTE | 2019-07-10 18:00 | NUR ---
[facility] admit from ER [facility]STERS admitted to [facility] after SBAR received. Patient oriented to Gilbert Malin, primary RN, unit, room, bed, and unit policies regarding patient care and visiting hours. Patient weighed by bedscale and encouraged to call if they need something. All questions and concerns addressed, patient verbalized understanding.
--- NOTE | 2019-07-10 18:30 | NUR ---
Patient requested to hold administration of Metformin while he is on insulin regular SC.
[2019-07-10 18:34] VITALS: BP 145/84
--- NOTE | 2019-07-10 19:31 | NUR ---
Opening Shift Note Received report and assumed care of patient. Patient is awake and alert. No signs or symptoms of distress noted, patient currently denies pain. Instructed patient on plan of care and to call for assistance as needed. Will continue to monitor.
[2019-07-10 22:00] VITALS: BP 140/81
[2019-07-10] MEDS: GABAPENTIN 300 MG CAP PO SCH (22:25)
[2019-07-10] MEDS: CLINDAMYCIN 300MG IV 50 ML IV SCH (22:25)
[2019-07-10] MEDS: LOSARTAN POTASSIUM 50 MG TAB PO SCH (22:26)
[2019-07-11 05:00] VITALS: BP 157/92
[2019-07-11] MEDS: hydrALAZINE HCL 20 MG/ML VL IV PRN ×2 (05:09→12:34)
[2019-07-11 05:43] VITALS: BP 151/91
[2019-07-11] MEDS: GABAPENTIN 300 MG CAP PO SCH ×3 (06:19→22:50)
[2019-07-11] MEDS: CLINDAMYCIN 300MG IV 50 ML IV SCH ×3 (06:20→22:49)
[2019-07-11] MEDS: ACCU-CHEK COMFORT CURVE STRIP VI SCH ×4 (06:21→22:50)
[2019-07-11] MEDS: metFORMIN HYDROCHLORIDE 500 MG TAB PO SCH ×2 (06:31→18:31)
[2019-07-11] MEDS: InsuLIN REG 1unit/0.01ml Soln (100units/ml) SC SCH ×4 (06:31→22:50)
--- NOTE | 2019-07-11 07:01 | NUR ---
OPENING SHIFT NOTE Assumed care of patient from electric distribution checker RN. Patient is alert and oriented x4, no signs of distress noted. Patient denies pain. Patient was updated on the plan of care and verbalized understanding. Bed is locked, in the lowest position, side rails up x2 and call light in reach. Patient was encouraged to call for assistance as needed.
[2019-07-11] MEDS: cefTRIAXone 1GM/50ML D5W 50 ML IV SCH (08:35)
[2019-07-11 09:34] VITALS: BP 150/90
[2019-07-11] MEDS: LOSARTAN POTASSIUM 50 MG TAB PO SCH ×2 (10:01→22:50)
[2019-07-11] MEDS: NIFEdipine ER 30 MG TAB PO SCH (10:01)
[2019-07-11] MEDS: CLOPIDOGREL BISULFATE 75 MG TAB PO SCH (10:01)
[2019-07-11] MEDS: FAMOTIDINE 20 MG TAB PO SCH (10:02)
--- NOTE | 2019-07-11 12:15 | NUR ---
WOUND CARE NOTE: PATIENT RECENTLY ADMITTED TO ON LICENSE OF [facility] WITH DIAGNOSIS OF LEFT FOOT CELLULITIS/ RULE OUT OSTEOMYELITIS. CURRENT SHAYY SCORE IS 19. PATIENT WAS NOTED TO HAVE WOUNDS TO BILATERAL FEET UPON ADMIT. WOUND PHOTOS TAKEN AT THIS TIME PER PROTOCOL. 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 LEFT # 1 TOE STUMP ARE APPEARS ABSCESSED. PATIENT RECEIVED RECENT BEDSIDE DEBRIDEMENT BY DR. CAMBPELL, WITH POST OPERATIVE DRESSING CLEAN DRY AND INTACT. DR. CAMPBELL HAS PROVIDED DEBRIDEMENT AND CONSULTED WITH PATIENT, ALL WOUND CARE RECOMMENDATIONS ARE DEFERRED BY DR. CAMPBELL AT THIS TIME. TO FURTHER WOUND CARE MONITORING NEEDED, UNLESS DR. CAMPBELL ORDERS FOR IT.
[2019-07-11 12:59] VITALS: BP 154/91
[2019-07-11 17:45] VITALS: BP 139/83
--- NOTE | 2019-07-11 19:30 | NUR ---
Opening Shift Note Assumed care of patient, awake and alert. No S/S of distress/SOB or pain. Instructed on POC and to call for assist PRN, will continue to monitor for changes Q1hr and PRN. Patient dressing came off from foot, open to air. Will do wound care.
[2019-07-11 22:00] VITALS: BP 144/79
--- NOTE | 2019-07-11 22:40 | NUR ---
Wound care done as doctor's orders. patient tolerated well.
[2019-07-11] MEDS: DAKINS QUARTER STR 0.125% (NaHypochlorite) 473 ML TOPICAL SOL TOP SCH (22:51)
[2019-07-12 05:54] VITALS: BP 142/85
[2019-07-12] MEDS: GABAPENTIN 300 MG CAP PO SCH (06:26)
[2019-07-12] MEDS: CLINDAMYCIN 300MG IV 50 ML IV SCH (06:26)
[2019-07-12] MEDS: metFORMIN HYDROCHLORIDE 500 MG TAB PO SCH (06:27)
[2019-07-12] MEDS: InsuLIN REG 1unit/0.01ml Soln (100units/ml) SC SCH ×2 (06:27→12:16)
[2019-07-12] MEDS: ACCU-CHEK COMFORT CURVE STRIP VI SCH ×2 (06:27→12:16)
--- NOTE | 2019-07-12 08:11 | NUR ---
Opening Shift Note Assumed care of patient, awake and alert, laying in bed. No S/S of distress/SOB or pain. Instructed on POC and to call for assist PRN, will continue to monitor for changes Q1hr and PRN.
[2019-07-12 09:00] VITALS: BP 148/95
[2019-07-12] MEDS: cefTRIAXone 1GM/50ML D5W 50 ML IV SCH (09:42)
[2019-07-12] MEDS: CLOPIDOGREL BISULFATE 75 MG TAB PO SCH (09:43)
[2019-07-12] MEDS: DAKINS QUARTER STR 0.125% (NaHypochlorite) 473 ML TOPICAL SOL TOP SCH (09:43)
[2019-07-12] MEDS: FAMOTIDINE 20 MG TAB PO SCH (09:43)
[2019-07-12] MEDS: LOSARTAN POTASSIUM 50 MG TAB PO SCH (09:49)
[2019-07-12] MEDS: NIFEdipine ER 30 MG TAB PO SCH (09:50)
[2019-07-12] MEDS ORDERED: DOXY-286 PO (09:59)
[2019-07-12] MEDS ORDERED: DAKI0.12 TOP (10:02)
[2019-07-12 11:39] VITALS: BP 145/84
--- NOTE | 2019-07-12 11:50 | NUR ---
Wound Care Wound care done as ordered.
[2019-07-12 13:00] VITALS: BP 155/101
--- NOTE | 2019-07-12 15:40 | NUR ---
Discharge instructions given as ordered. Encourage to follow up with PMD as instructed. All questions and concerns addressed. Patient verbalized understanding. Medication reconciliation form completed and copy given to patient. IV removed with catheter intact and pressure dressing applied. Patient taken to vehicle via wheelchair with all personal belongings, accompanied by staff and family member. No distress noted at time of departure.
== END 2019-07-12 15:40 | disposition home or self-care (01) | DRG 603 ==
LOC: ER 12:22 → EEVIPCON 12:23 → OVERFLOW 12:23 → EAST 18:47
PROVIDERS: ADMIT Nurse Practitioner Acute Care; ATTEND Internal Medicine
PROC: 0HDLXZZ Extraction of Left Lower Leg Skin, External Approach (ICD-10-PCS; principal; 2019-07-10)
DX: L03.116 Cellulitis of left lower limb (principal); E11.40 Type 2 diabetes mellitus with diabetic neuropathy, unspecified; E66.9 Obesity, unspecified; N18.3 Chronic kidney disease, stage 3 (moderate); E11.22 Type 2 diabetes mellitus with diabetic chronic kidney disease; E11.51 Type 2 diabetes mellitus with diabetic peripheral angiopathy without gangrene; E78.5 Hyperlipidemia, unspecified; E11.42 Type 2 diabetes mellitus with diabetic polyneuropathy; I12.9 Hypertensive chronic kidney disease with stage 1 through stage 4 chronic kidney disease, or unspecified chronic kidney disease; Z79.84 Long term (current) use of oral hypoglycemic drugs; Z79.899 Other long term (current) drug therapy; Z82.3 Family history of stroke; Z82.49 Family history of ischemic heart disease and other diseases of the circulatory system; Z83.3 Family history of diabetes mellitus; Z91.19 Patient's noncompliance with other medical treatment and regimen; Z68.32 Body mass index [BMI] 32.0-32.9, adult; Z88.1 Allergy status to other antibiotic agents
CPT/HCPCS: 36415; 73700; 80053; 82962; 83036; 85025; 85652; 87081; 96365; G0378; J0696; J1815; J3490

== ENCOUNTER → 2019-10-21 | Outpatient (CLI) | payer BC ==
[~2019-10-21] MED LIST changes: +DAKI0.12 TOP; +DOXY-286 PO
== END | disposition home or self-care (01) ==
LOC: LAB 07:04
PROVIDERS: ATTEND Urology
DX: E29.0 Testicular hyperfunction (principal); N52.9 Male erectile dysfunction, unspecified; R97.20 Elevated prostate specific antigen [PSA]
CPT/HCPCS: 36415; 84154; 84403

== ENCOUNTER → 2019-11-01 | Outpatient (CLI) | payer BC | END | disposition home or self-care (01) | LOC: LAB 15:49 | PROVIDERS: ATTEND Podiatrist | DX: E11.621 Type 2 diabetes mellitus with foot ulcer (principal) | CPT/HCPCS: 87075; 87077; 87186; 87205 ==

== ENCOUNTER 2019-12-04 07:46 | Emergency (ER) | payer BC ==
[~2019-12-04] VITALS: Ht 182.9 cm; Wt 99.8 kg
[2019-12-04 09:05] LABS: Basophils # (auto) 0 10 ^3/uL (0-0.2); Basophils % (auto) 0.7 % (0.0-2.0); Eosinophils # (auto) 0.2 10 ^3/uL (0-0.8); Eosinophils % (auto) 2.5 % (0.0-7.0); Hematocrit 40.7 % (41.0-53.0); Hemoglobin 13.9 g/dL (13.5-17.5); Lymphocytes # (auto) 1.2 10 ^3/uL (0.4-5.4); Lymphocytes % (auto) 17.4 % (10.0-50.0); Mean Corpuscular Hemoglobin 29.9 pg (28.0-32.0); Mean Corpuscular Hgb Conc. 34.1 g/dL (32.0-36.0); Mean Corpuscular Volume 87.7 fL (80.0-100.0); Monocytes # (auto) 0.4 10 ^3/uL (0-1.3); Monocytes % (auto) 6.2 % (0.0-12.0); Neutrophils % (auto) 73.2 % (37.0-80.0); Nucleated Red Blood Cells % 0.1 %; Platelet Count (auto) 243 10^3/uL (140-450); Red Blood Cells 4.64 10^6/uL (4.5-5.90); Red Cell Distribution Width 13.4 % (11.8-14.3); White Blood Cell 6.8 10^3/uL (4.4-10.8)
[2019-12-04 09:23] LABS: Albumin 3.4 g/dL (3.4-5.0); Calcium 8.6 mg/dL (8.5-10.1); Magnesium 2.7 mg/dL (1.6-2.6); Potassium 4.1 mmol/L (3.5-5.1)
[2019-12-04 09:26] LABS: INR 0.93 (0.9-1.15); Partial Thromboplastin Time 30.9 sec (23.64-32.05)
[2019-12-04 09:27] LABS: Bilirubin, Total 0.3 mg/dL (0.2-1.0); Total Protein 7.4 g/dL (6.4-8.2)
[2019-12-04 10:55] VITALS: BP 130/82
== END 2019-12-04 10:56 | disposition home or self-care (01) ==
LOC: EEVIPCON 07:46 → ER 07:46
DX: E11.21 Type 2 diabetes mellitus with diabetic nephropathy (principal); E11.65 Type 2 diabetes mellitus with hyperglycemia; I10 Essential (primary) hypertension; E78.5 Hyperlipidemia, unspecified; Z89.429 Acquired absence of other toe(s), unspecified side; Z88.1 Allergy status to other antibiotic agents
CPT/HCPCS: 36410; 36415; 71046; 80053; 83735; 85025; 85610; 85730

== ENCOUNTER 2019-12-17 13:14 | Emergency (ER) | payer BC ==
[~2019-12-17] VITALS: Ht 182.9 cm; Wt 99.8 kg
[2019-12-17 13:24] VITALS: BP 116/71
== END 2019-12-17 17:05 | disposition home or self-care (01) ==
LOC: EEVIPCON 13:14 → ER 13:14
DX: Z48.01 Encounter for change or removal of surgical wound dressing (principal)

== ENCOUNTER → 2020-02-15 | Day surgery (SDC) | payer BC ==
[2020-02-10 14:49] LABS: Basophils # (auto) 0.1 10 ^3/uL (0-0.2); Basophils % (auto) 0.9 % (0.0-2.0); Eosinophils # (auto) 0.2 10 ^3/uL (0-0.8); Eosinophils % (auto) 1.8 % (0.0-7.0); Hematocrit 44.3 % (41.0-53.0); Hemoglobin 15.4 g/dL (13.5-17.5); Lymphocytes # (auto) 1.9 10 ^3/uL (0.4-5.4); Lymphocytes % (auto) 17.9 % (10.0-50.0); Mean Corpuscular Hemoglobin 30.2 pg (28.0-32.0); Mean Corpuscular Hgb Conc. 34.7 g/dL (32.0-36.0); Mean Corpuscular Volume 87.1 fL (80.0-100.0); Monocytes # (auto) 0.7 10 ^3/uL (0-1.3); Monocytes % (auto) 6.2 % (0.0-12.0); Neutrophils # (auto) 7.7 10 ^3/uL (1.6-8.6); Neutrophils % (auto) 73.2 % (37.0-80.0); Platelet Count (auto) 313 10^3/uL (140-450); Red Blood Cells 5.09 10^6/uL (4.5-5.90); Red Cell Distribution Width 13.2 % (11.8-14.3); White Blood Cell 10.5 10^3/uL (4.4-10.8)
[2020-02-10 14:58] LABS: Urine Bacteria NONE SEEN /hpf (None Seen); Urine Blood Negative /uL (Negative); Urine Specific Gravity 1.021 (1.001-1.035); Urine WBC <1 /hpf (0 - 3)
[2020-02-10 15:09] LABS: INR 0.97 (0.9-1.15); Partial Thromboplastin Time 28.9 sec (23.0-31.2)
[2020-02-10 15:51] LABS: Albumin 3.7 g/dL (3.4-5.0)
[2020-02-10 15:54] LABS: Alanine Aminotransferase 23 U/L (16-61); Alkaline Phosphatase 150 U/L (45-117); Aspartate Aminotransferase 9 U/L (15-37); Bilirubin, Total 0.4 mg/dL (0.2-1.0); Total Protein 8.2 g/dL (6.4-8.2)
[2020-02-10 16:48] LABS: Anion Gap 15 (5-15); BUN/Creatinine Ratio 16.5; Blood Urea Nitrogen 33 mg/dL (7-18); Calcium 8.8 mg/dL (8.5-10.1); Carbon Dioxide 21 mmol/L (21-32); Chloride 98 mmol/L (98-107); GFR African American 44 mL/min; GFR Non-African American 37 mL/min; Glucose 365 mg/dL (74-106); Potassium 4.1 mmol/L (3.5-5.1); Sodium 134 mmol/L (136-145)
[~2020-02-15] VITALS: Ht 182.9 cm; Wt 96.6 kg
[~2020-02-15] MED LIST changes: +ACCU-CHEK COMFORT CURVE STRIP VI ONE; +BUPIVACAINE HCL 50 ML ONE; +CLOP75TA41 PO; +DexAMETHasone SOD PHOS 10MG/1ML VIAL INJ ONE; +HYDROmorphone HCL 2 MG/ML VL IV PRN; +IBUP800T24 PO; +InsuLIN REG 1unit/0.01ml Soln (100units/ml) ONE; +LABETALOL HCL 5 MG/ML 4ML SYRINGE IV PRN; +LIDOCAINE 1% HCL (LOCAL ANESTH.) INJ 20ML MDV ONE; +MEPERIDINE HCL (25 MG/ML) 1ML VIAL ONE; +MIDAZOLAM HCL 1MG/1ML-2 ML VIAL IV PRN; +MIDAZOLAM HCL 1MG/1ML-2 ML VIAL ONE; +MORPHINE SULFATE 4 MG/ML SYR/VIAL IV PRN; +ONDANSETRON HCL 4 MG/2 ML VIAL IV PRN; +PANT40TA2 PO; +PROPOFOL 10 MG/ML 20 ML IV ONE; +ceFAZolin 1GM/50ML 100 ML IV ONE; +ePHEDrine SULFATE 50 MG/ML AMP IV PRN; +fentaNYL CITRATE 100 MCG/2 ML VL ONE
[2020-02-15 09:20] VITALS: BP 172/102
== END | disposition home or self-care (01) ==
LOC: SUR 09:02
PROVIDERS: ATTEND Podiatrist
PROC: 0JBQ0ZZ Excision of Right Foot Subcutaneous Tissue and Fascia, Open Approach (ICD-10-PCS; principal; 2020-02-15 11:55)
DX: E11.621 Type 2 diabetes mellitus with foot ulcer (principal); E07.9 Disorder of thyroid, unspecified; E11.22 Type 2 diabetes mellitus with diabetic chronic kidney disease; I12.9 Hypertensive chronic kidney disease with stage 1 through stage 4 chronic kidney disease, or unspecified chronic kidney disease; N18.3 Chronic kidney disease, stage 3 (moderate); E66.01 Morbid (severe) obesity due to excess calories; Z68.31 Body mass index [BMI] 31.0-31.9, adult; Z88.1 Allergy status to other antibiotic agents; Z20.828 Contact with and (suspected) exposure to other viral communicable diseases; Z87.891 Personal history of nicotine dependence; Z79.4 Long term (current) use of insulin
CPT/HCPCS: 28039; 28112; 36415; 80053; 81001; 82962; 85025; 85610; 85730; 87070; 87075; 87077; 87186; 87205; 88304; 88312; 88342; 97605; J0690; J1100; J1815; J2001; J2175; J2250; J2704; J3010; J3490; L3260; U0003

== ENCOUNTER 2020-08-13 10:14 | Emergency (ER) | payer BC ==
[~2020-08-13] VITALS: Ht 182.9 cm; Wt 99.8 kg
[~2020-08-13 10:14] MED LIST changes: -ACCU-CHEK COMFORT CURVE STRIP VI ONE; -BUPIVACAINE HCL 50 ML ONE; -CLOP75TA41 PO; +CLOP75TA70 PO; -DexAMETHasone SOD PHOS 10MG/1ML VIAL INJ ONE; -HYDROmorphone HCL 2 MG/ML VL IV PRN; -IBUP800T24 PO; +IBUP800T27 PO; -InsuLIN REG 1unit/0.01ml Soln (100units/ml) ONE; -LABETALOL HCL 5 MG/ML 4ML SYRINGE IV PRN; -LIDOCAINE 1% HCL (LOCAL ANESTH.) INJ 20ML MDV ONE; -MEPERIDINE HCL (25 MG/ML) 1ML VIAL ONE; -MIDAZOLAM HCL 1MG/1ML-2 ML VIAL IV PRN; -MIDAZOLAM HCL 1MG/1ML-2 ML VIAL ONE; -MORPHINE SULFATE 4 MG/ML SYR/VIAL IV PRN; -ONDANSETRON HCL 4 MG/2 ML VIAL IV PRN; -PROPOFOL 10 MG/ML 20 ML IV ONE; -ceFAZolin 1GM/50ML 100 ML IV ONE; -ePHEDrine SULFATE 50 MG/ML AMP IV PRN; -fentaNYL CITRATE 100 MCG/2 ML VL ONE
[2020-08-13 10:44] VITALS: BP 138/74
[2020-08-13] MEDS ORDERED: METHOCARBAMOL 500 MG TAB PO ONE (11:45)
[2020-08-13] MEDS ORDERED: KETOROLAC TROMETH 60MG/2ML VIAL IM ONE (11:45)
== END 2020-08-13 13:02 | disposition home or self-care (01) ==
LOC: EEVIPCON 10:14 → ER 10:14
DX: M62.838 Other muscle spasm (principal); E11.9 Type 2 diabetes mellitus without complications; I10 Essential (primary) hypertension; Z79.899 Other long term (current) drug therapy
CPT/HCPCS: 96372; 99283; J1885

== ENCOUNTER 2020-08-27 21:02 | Emergency (ER) | payer BC ==
[~2020-08-27] VITALS: Ht 152.4 cm; Wt 93.0 kg
[2020-08-28] MEDS ORDERED: ONDANSETRON ODT 4 MG TAB PO ONE (02:15)
[2020-08-28] MEDS ORDERED: ACETAMINOPHEN/CODEINE#3 (300/30mg) TAB PO ONE (02:15)
[2020-08-28 02:41] VITALS: BP 122/75
== END 2020-08-28 02:33 | disposition home or self-care (01) ==
LOC: ER 21:02
DX: M13.851 Other specified arthritis, right hip (principal); M70.61 Trochanteric bursitis, right hip; I10 Essential (primary) hypertension; E11.9 Type 2 diabetes mellitus without complications; E78.5 Hyperlipidemia, unspecified; Z87.891 Personal history of nicotine dependence
CPT/HCPCS: 73502

== ENCOUNTER 2020-08-30 14:01 | Inpatient (IN) | payer BC ==
[~2020-08-30] VITALS: Ht 182.9 cm; Wt 95.2 kg
[2020-08-30] MEDS ORDERED: SODIUM CHLORIDE 0.9% 1,000 ML IV ONE ×2 (14:30)
[2020-08-30 14:32] LABS: Mean Corpuscular Hgb Conc. 33.8 g/dL (32.0-36.0)
[2020-08-30 14:34] LABS: Basophils # (auto) 0.2 10 ^3/uL (0-0.2); Basophils % (auto) 0.5 % (0.0-2.0); Eosinophils # (auto) 0 10 ^3/uL (0-0.8); Hematocrit 41.6 % (41.0-53.0); Hemoglobin 14.1 g/dL (13.5-17.5); Lymphocytes % (auto) 3.7 % (10.0-50.0); Mean Corpuscular Hemoglobin 29.1 pg (28.0-32.0); Mean Corpuscular Volume 86.2 fL (80.0-100.0); Monocytes # (auto) 1.2 10 ^3/uL (0-1.3); Monocytes % (auto) 4.4 % (0.0-12.0); Neutrophils # (auto) 25.8 10 ^3/uL (1.6-8.6); Neutrophils % (auto) 91.4 % (37.0-80.0); Platelet Count (auto) 475 10^3/uL (140-450); Red Blood Cells 4.83 10^6/uL (4.5-5.90); Red Cell Distribution Width 13.1 % (11.8-14.3); White Blood Cell 28.3 10^3/uL (4.4-10.8)
[2020-08-30 14:47] LABS: INR 1.09 (0.9-1.15); Partial Thromboplastin Time 29.3 sec (23.0-31.2)
[2020-08-30 14:58] LABS: Alanine Aminotransferase 12 U/L (16-61); Albumin 2.4 g/dL (3.4-5.0); Anion Gap 24 (5-15); Aspartate Aminotransferase 6 U/L (15-37); BUN/Creatinine Ratio 18.6; Blood Urea Nitrogen 44 mg/dL (7-18); Calcium 8.9 mg/dL (8.5-10.1); Carbon Dioxide 15 mmol/L (21-32); Chloride 94 mmol/L (98-107); GFR African American 36 mL/min; GFR Non-African American 30 mL/min; Glucose 346 mg/dL (74-106); Magnesium 2.8 mg/dL (1.6-2.6); Sodium 133 mmol/L (136-145)
[2020-08-30 15:03] LABS: Alkaline Phosphatase 132 U/L (45-117); Bilirubin, Total 0.5 mg/dL (0.2-1.0); Total Protein 7.2 g/dL (6.4-8.2)
[2020-08-30 15:35] LABS: Potassium 2.9 mmol/L (3.5-5.1)
[2020-08-30] MEDS ORDERED: INSULIN LANTUS (GLARGINE) 1 /0.01ml (100units/ml) SC ONE (15:45)
[2020-08-30] MEDS ORDERED: InsuLIN R (HUMAN) 100 UNITS in SODIUM CHL 0.9% 99 ML IV SCH (15:45)
[2020-08-30] MEDS ORDERED: DEXTROSE (50%) 50ML SYRG IV PRN ×2 (15:45→23:30)
[2020-08-30] MEDS ORDERED: PIPERACILLIN-TAZOB 3.375GM 100 ML IV ONE (15:45)
[2020-08-30] MEDS: SODIUM CHLORIDE 0.9% 1,000 ML IV SCH ×2 (16:07→17:43)
[2020-08-30] MEDS ORDERED: POTASSIUM CHLORIDE 60 MEQ, LIDOCAINE 1% (LOCAL ANESTH.) 6 ML in SODIUM CHL 0.9% 500 ML IV ONE (16:15)
[2020-08-30] MEDS: ACCU-CHEK COMFORT CURVE STRIP VI SCH ×5 (16:25→22:42)
[2020-08-30 17:43] LABS: BUN/Creatinine Ratio 20.9; Calcium 8.3 mg/dL (8.5-10.1); Magnesium 2.7 mg/dL (1.6-2.6); Phosphorus 3.8 mg/dL (2.5-4.90)
[2020-08-30] MEDS ORDERED: PROMETHAZINE HCL 25 MG/ML 1ML IV ONE (17:45)
[2020-08-30] MEDS: PROMETHAZINE HCL 25 MG/ML 1ML ONE ×2 (18:13→18:17)
[2020-08-30 18:28] LABS: Potassium 2.9 mmol/L (3.5-5.1)
[2020-08-30] MEDS ORDERED: SODIUM CHLORIDE 0.9% 1,000 ML IV SCH ×2 (19:45→21:45)
[2020-08-30] MEDS ORDERED: ONDANSETRON HCL 4 MG/2 ML VIAL IV ONE (20:15)
[2020-08-30] MEDS ORDERED: MORPHINE SULF INJ 2 MG/ML SYRINGE 1ML IV ONE (20:15)
[2020-08-30 20:28] LABS: Urine Bacteria NONE SEEN /hpf (None Seen); Urine Blood Negative /uL (Negative); Urine Specific Gravity 1.025 (1.001-1.035); Urine WBC 2 /hpf (0 - 3)
[2020-08-30] MEDS ORDERED: MORPHINE SULF INJ 2 MG/ML SYRINGE 1ML IV PRN (23:30)
[2020-08-30] MEDS ORDERED: NITROGLYCERIN 0.4 MG SL TAB SL PRN (23:30)
[2020-08-30] MEDS ORDERED: METOCLOPRAMIDE HCL 5MG/ml INJ 2ml VIAL IV PRN (23:30)
[2020-08-31] MEDS: ACCU-CHEK COMFORT CURVE STRIP VI SCH ×6 (01:10→20:06)
[2020-08-31] MEDS: InsuLIN REG 1unit/0.01ml Soln (100units/ml) SC SCH ×6 (01:15→20:14)
[2020-08-31] MEDS: PIPERACILLIN-TAZOB 3.375GM 100 ML IV SCH ×5 (01:18→23:59)
[2020-08-31] MEDS: SODIUM CHLORIDE 0.9% 1,000 ML IV SCH ×3 (01:19→19:59)
[2020-08-31] MEDS: MORPHINE SULFATE 4 MG/ML SYR/VIAL IV PRN (01:21)
[2020-08-31] MEDS: ONDANSETRON HCL 4 MG/2 ML VIAL IV PRN (01:21)
[2020-08-31 01:45] VITALS: BP 151/78
[2020-08-31 05:02] VITALS: BP 151/78
[2020-08-31 06:01] LABS: Basophils # (auto) 0 10 ^3/uL (0-0.2); Basophils % (auto) 0.1 % (0.0-2.0); Eosinophils # (auto) 0.1 10 ^3/uL (0-0.8); Eosinophils % (auto) 0.3 % (0.0-7.0); Hematocrit 38.3 % (41.0-53.0); Hemoglobin 13.3 g/dL (13.5-17.5); Lymphocytes # (auto) 0.5 10 ^3/uL (0.4-5.4); Lymphocytes % (auto) 2.4 % (10.0-50.0); Mean Corpuscular Hemoglobin 29.8 pg (28.0-32.0); Mean Corpuscular Hgb Conc. 34.7 g/dL (32.0-36.0); Mean Corpuscular Volume 85.7 fL (80.0-100.0); Monocytes # (auto) 0.7 10 ^3/uL (0-1.3); Monocytes % (auto) 3.3 % (0.0-12.0); Neutrophils # (auto) 19.6 10 ^3/uL (1.6-8.6); Neutrophils % (auto) 93.9 % (37.0-80.0); Platelet Count (auto) 366 10^3/uL (140-450); Red Blood Cells 4.46 10^6/uL (4.5-5.90); White Blood Cell 20.9 10^3/uL (4.4-10.8)
[2020-08-31 06:36] LABS: Albumin 1.9 g/dL (3.4-5.0); BUN/Creatinine Ratio 21.7; Bilirubin, Total 0.5 mg/dL (0.2-1.0); Calcium 8.3 mg/dL (8.5-10.1); Magnesium 2.5 mg/dL (1.6-2.6); Total Protein 6.1 g/dL (6.4-8.2)
[2020-08-31] MEDS: INSULIN LANTUS (GLARGINE) 1 /0.01ml (100units/ml) SC SCH (08:54)
[2020-08-31] MEDS: FAMOTIDINE (10MG/ML) 2ML VL IV SCH ×2 (08:59→20:05)
[2020-08-31] MEDS: HEPARIN SODIUM (PORCINE) 5000 UNITS/ML 1ML VIAL SC SCH ×2 (08:59→22:00)
[2020-08-31 09:00] VITALS: BP 148/97
[2020-08-31 10:53] LABS: BUN/Creatinine Ratio 20.8; Calcium 8.3 mg/dL (8.5-10.1)
[2020-08-31 10:54] LABS: Potassium 2.9 mmol/L (3.5-5.1)
[2020-08-31] MEDS ORDERED: POTASSIUM EFFERVESENT TAB 25 MEQ PO ONE (11:00)
[2020-08-31 13:00] VITALS: BP 166/83
[2020-08-31] MEDS: METOCLOPRAMIDE HCL 10 MG TAB PO SCH ×2 (16:37→22:06)
[2020-08-31] MEDS: Glucerna Carbsteady SHAKE Vanilla 8oz PO SCH (16:37)
[2020-08-31 17:00] VITALS: BP 155/79
[2020-08-31 18:53] LABS: Calcium 8.2 mg/dL (8.5-10.1)
[2020-08-31 18:55] LABS: BUN/Creatinine Ratio 20.3
[2020-08-31] MEDS: SUCRALFATE 1 GM/10 ML ORAL SUSP PO SCH (20:05)
[2020-08-31] MEDS: TEMAZEPAM 15 MG CAP PO PRN (20:05)
[2020-08-31 22:11] VITALS: BP 133/74
[2020-09-01] MEDS: ACCU-CHEK COMFORT CURVE STRIP VI SCH ×6 (00:19→20:46)
[2020-09-01] MEDS: InsuLIN REG 1unit/0.01ml Soln (100units/ml) SC SCH ×6 (04:32→20:45)
[2020-09-01 05:00] VITALS: BP 136/82
[2020-09-01] MEDS: SODIUM CHLORIDE 0.9% 1,000 ML IV SCH ×2 (05:02→16:42)
[2020-09-01] MEDS: MORPHINE SULFATE 4 MG/ML SYR/VIAL IV PRN ×2 (05:02→09:39)
[2020-09-01] MEDS: SUCRALFATE 1 GM/10 ML ORAL SUSP PO SCH ×4 (05:41→23:13)
[2020-09-01] MEDS: PIPERACILLIN-TAZOB 3.375GM 100 ML IV SCH ×3 (05:41→18:08)
[2020-09-01] MEDS: METOCLOPRAMIDE HCL 10 MG TAB PO SCH ×3 (05:41→16:48)
[2020-09-01 06:20] LABS: Hematocrit 42.8 % (41.0-53.0); Hemoglobin 14.9 g/dL (13.5-17.5); Mean Corpuscular Hemoglobin 30.5 pg (28.0-32.0); Mean Corpuscular Hgb Conc. 34.9 g/dL (32.0-36.0); Mean Corpuscular Volume 87.3 fL (80.0-100.0); Platelet Count (auto) 378 10^3/uL (140-450); Red Cell Distribution Width 13.5 % (11.8-14.3); White Blood Cell 25.2 10^3/uL (4.4-10.8)
[2020-09-01 06:24] LABS: Albumin 1.9 g/dL (3.4-5.0); BUN/Creatinine Ratio 16.3; Calcium 8.4 mg/dL (8.5-10.1)
[2020-09-01 06:30] LABS: Bilirubin, Total 0.6 mg/dL (0.2-1.0); Total Protein 6.5 g/dL (6.4-8.2)
[2020-09-01 06:33] LABS: Basophils % (manual) 0 (0.0-2.0); Blast Cells 0; Eosinophils % (manual) 0 (0-7); Metamyelocytes % 0; Monocytes % (manual) 0 (0-12); Myelocytes % 0; Promyelocytes % 0; Reactive Lymphocytes 0
[2020-09-01 06:35] LABS: Potassium 2.9 mmol/L (3.5-5.1)
[2020-09-01 07:56] LABS: Band Neutrophils % (manual) 5; Lymphocytes % (manual) 7 (10.0-50.0)
[2020-09-01] MEDS: Glucerna Carbsteady SHAKE Vanilla 8oz PO SCH ×3 (08:00→18:00)
[2020-09-01] MEDS ORDERED: POTASSIUM CHLORIDE 40 MEQ, LIDOCAINE 1% (LOCAL ANESTH.) 4 ML in SODIUM CHL 0.9% 250 ML IV ONE (08:30)
[2020-09-01 09:00] VITALS: BP 136/77
[2020-09-01] MEDS ORDERED: HEPARIN SODIUM (PORCINE) 5000 UNITS/ML 1ML VIAL ONE (09:26)
[2020-09-01] MEDS: FAMOTIDINE (10MG/ML) 2ML VL IV SCH (09:39)
[2020-09-01] MEDS: HEPARIN SODIUM (PORCINE) 5000 UNITS/ML 1ML VIAL SC SCH ×2 (09:39→23:14)
[2020-09-01] MEDS: INSULIN LANTUS (GLARGINE) 1 /0.01ml (100units/ml) SC SCH (09:44)
[2020-09-01] MEDS ORDERED: LIDOCAINE VISCOUS 2% 15ML UD ONE (09:47)
[2020-09-01] MEDS ORDERED: MIDAZOLAM HCL 5 MG/ML-1ML VIAL ONE (09:48)
[2020-09-01] MEDS ORDERED: fentaNYL CITRATE 100 MCG/2 ML VL ONE ×2 (09:48→13:26)
[2020-09-01] MEDS ORDERED: diphenhdrAMINE HCL 50 MG/1 ML VL ONE (09:48)
[2020-09-01 13:00] VITALS: BP 160/89
[2020-09-01] MEDS ORDERED: LIDOCAINE 2% (LOCAL ANESTH.) PF 5ml SDV ONE (13:27)
[2020-09-01] MEDS ORDERED: MIDAZOLAM HCL 1MG/1ML-2 ML VIAL ONE (13:27)
[2020-09-01] MEDS ORDERED: PROPOFOL 10 MG/ML 20 ML IV ONE (13:27)
[2020-09-01] MEDS ORDERED: ONDANSETRON HCL 4 MG/2 ML VIAL ONE (13:27)
[2020-09-01] MEDS ORDERED: GLYCOPYRROLATE 0.2 MG/ML 1ML VIAL ONE (13:27)
[2020-09-01] MEDS ORDERED: ONDANSETRON HCL 4 MG/2 ML VIAL IV PRN (14:00)
[2020-09-01] MEDS ORDERED: HYDROmorphone HCL 2 MG/ML VL IV PRN (14:00)
[2020-09-01] MEDS ORDERED: ACCU-CHEK COMFORT CURVE STRIP VI ONE (14:00)
[2020-09-01] MEDS: KETOROLAC TROMETH 30 MG/ML 1ML VIAL IV PRN ×2 (16:45→23:15)
[2020-09-01] MEDS: ONDANSETRON HCL 4 MG/2 ML VIAL IV PRN (16:45)
[2020-09-01 17:15] VITALS: BP 152/82
[2020-09-01 22:00] VITALS: BP 156/84
[2020-09-01] MEDS ORDERED: PANTOPRAZOLE 40 MG/10 ML VIAL INJ IV SCH (22:00)
[2020-09-01] MEDS ORDERED: PANTOPRAZOLE 40 MG TAB PO SCH (22:00)
[2020-09-01] MEDS: METOCLOPRAMIDE HCL 5MG/ml INJ 2ml VIAL IV SCH (23:12)
[2020-09-01] MEDS: ESOMEPRAZOLE 40 MG/5ml VIAL INJ IV SCH (23:12)
[2020-09-02] MEDS: TEMAZEPAM 15 MG CAP PO PRN ×2 (00:04→21:40)
[2020-09-02] MEDS: PIPERACILLIN-TAZOB 3.375GM 100 ML IV SCH ×5 (00:04→23:14)
[2020-09-02] MEDS: ACCU-CHEK COMFORT CURVE STRIP VI SCH ×7 (00:13→23:24)
[2020-09-02] MEDS: InsuLIN REG 1unit/0.01ml Soln (100units/ml) SC SCH ×7 (00:14→23:24)
[2020-09-02] MEDS: SODIUM CHLORIDE 0.9% 1,000 ML IV SCH ×3 (01:30→21:30)
[2020-09-02 05:16] VITALS: BP 151/85
[2020-09-02] MEDS: METOCLOPRAMIDE HCL 5MG/ml INJ 2ml VIAL IV SCH ×3 (06:44→21:40)
[2020-09-02] MEDS: SUCRALFATE 1 GM/10 ML ORAL SUSP PO SCH ×4 (06:44→21:40)
[2020-09-02 08:15] VITALS: BP 141/89
[2020-09-02] MEDS: Glucerna Carbsteady SHAKE Vanilla 8oz PO SCH ×3 (08:25→17:27)
[2020-09-02 09:00] VITALS: BP 141/89
[2020-09-02] MEDS: HEPARIN SODIUM (PORCINE) 5000 UNITS/ML 1ML VIAL SC SCH ×2 (10:00→21:53)
[2020-09-02] MEDS: ESOMEPRAZOLE 40 MG/5ml VIAL INJ IV SCH ×2 (10:00→21:40)
[2020-09-02] MEDS: INSULIN LANTUS (GLARGINE) 1 /0.01ml (100units/ml) SC SCH (10:00)
[2020-09-02] MEDS ORDERED: HEPARIN SODIUM (PORCINE) 5000 UNITS/ML 1ML VIAL ONE (10:14)
[2020-09-02] MEDS: KETOROLAC TROMETH 30 MG/ML 1ML VIAL IV PRN ×2 (12:07→18:18)
[2020-09-02 12:45] VITALS: BP 137/78
[2020-09-02 17:00] VITALS: BP 161/90
[2020-09-02 17:07] LABS: BUN/Creatinine Ratio 15.9; Calcium 7.9 mg/dL (8.5-10.1); Potassium 3.1 mmol/L (3.5-5.1)
[2020-09-02] MEDS ORDERED: POTASSIUM CHLORIDE 20 MEQ, LIDOCAINE 1% (LOCAL ANESTH.) 2 ML in SODIUM CHL 0.9% 100 ML IV ONE (17:45)
[2020-09-02] MEDS: LOSARTAN POTASSIUM 50 MG TAB PO SCH (21:52)
[2020-09-02 21:58] VITALS: BP 156/96
[2020-09-03] VITALS (7 sets, daily range): BP systolic 139–175; BP diastolic 87–103
[2020-09-03] MEDS: InsuLIN REG 1unit/0.01ml Soln (100units/ml) SC SCH ×5 (04:28→20:26)
[2020-09-03] MEDS: ACCU-CHEK COMFORT CURVE STRIP VI SCH ×5 (04:29→20:25)
[2020-09-03] MEDS: METOCLOPRAMIDE HCL 5MG/ml INJ 2ml VIAL IV SCH ×3 (05:54→20:59)
[2020-09-03] MEDS: SODIUM CHLORIDE 0.9% 1,000 ML IV SCH ×2 (05:55→17:38)
[2020-09-03] MEDS: PIPERACILLIN-TAZOB 3.375GM 100 ML IV SCH ×3 (05:55→18:39)
[2020-09-03] MEDS: SUCRALFATE 1 GM/10 ML ORAL SUSP PO SCH ×4 (05:55→20:59)
[2020-09-03 06:00] LABS: Basophils # (auto) 0 10 ^3/uL (0-0.2); Basophils % (auto) 0.1 % (0.0-2.0); Eosinophils # (auto) 0.5 10 ^3/uL (0-0.8); Eosinophils % (auto) 2.8 % (0.0-7.0); Hematocrit 38.1 % (41.0-53.0); Lymphocytes # (auto) 0.6 10 ^3/uL (0.4-5.4); Lymphocytes % (auto) 3.3 % (10.0-50.0); Mean Corpuscular Hemoglobin 29.5 pg (28.0-32.0); Mean Corpuscular Volume 86.6 fL (80.0-100.0); Monocytes # (auto) 0.5 10 ^3/uL (0-1.3); Monocytes % (auto) 2.8 % (0.0-12.0); Neutrophils # (auto) 17.5 10 ^3/uL (1.6-8.6); Nucleated Red Blood Cells % 0.1 %; Platelet Count (auto) 260 10^3/uL (140-450); Red Cell Distribution Width 12.9 % (11.8-14.3); White Blood Cell 19.2 10^3/uL (4.4-10.8)
[2020-09-03 06:23] LABS: Albumin 1.6 g/dL (3.4-5.0); Calcium 7.8 mg/dL (8.5-10.1)
[2020-09-03 06:29] LABS: Bilirubin, Total 0.5 mg/dL (0.2-1.0); Total Protein 5.2 g/dL (6.4-8.2)
[2020-09-03 06:30] LABS: Potassium 2.9 mmol/L (3.5-5.1)
[2020-09-03] MEDS ORDERED: POTASSIUM CHL 20 Meq TABLET PO ONE (07:15)
[2020-09-03] MEDS: KETOROLAC TROMETH 30 MG/ML 1ML VIAL IV PRN (08:00)
[2020-09-03 08:13] LABS: BUN/Creatinine Ratio 15.8
[2020-09-03] MEDS: Glucerna Carbsteady SHAKE Vanilla 8oz PO SCH ×3 (08:51→18:39)
[2020-09-03] MEDS: ESOMEPRAZOLE 40 MG/5ml VIAL INJ IV SCH ×2 (10:36→20:59)
[2020-09-03] MEDS: NIFEdipine ER 30 MG TAB PO SCH (10:37)
[2020-09-03] MEDS: LOSARTAN POTASSIUM 50 MG TAB PO SCH ×2 (10:38→20:59)
[2020-09-03] MEDS: HEPARIN SODIUM (PORCINE) 5000 UNITS/ML 1ML VIAL SC SCH ×2 (10:39→20:56)
[2020-09-03] MEDS: INSULIN LANTUS (GLARGINE) 1 /0.01ml (100units/ml) SC SCH (11:33)
[2020-09-03] MEDS: CLINDAMYCIN HCL 150 MG CAP PO SCH ×2 (14:26→20:58)
[2020-09-03] MEDS: HYDROmorphone HCL 2 MG/ML VL IV PRN (20:32)
[2020-09-03] MEDS: TEMAZEPAM 15 MG CAP PO PRN (20:58)
[2020-09-04] MEDS: ACCU-CHEK COMFORT CURVE STRIP VI SCH ×7 (00:13→23:58)
[2020-09-04] MEDS: PIPERACILLIN-TAZOB 3.375GM 100 ML IV SCH ×5 (00:13→23:50)
[2020-09-04] MEDS: HYDROmorphone HCL 2 MG/ML VL IV PRN ×3 (00:44→20:30)
[2020-09-04] MEDS: SODIUM CHLORIDE 0.9% 1,000 ML IV SCH (04:20)
[2020-09-04] MEDS: InsuLIN REG 1unit/0.01ml Soln (100units/ml) SC SCH ×6 (04:20→20:10)
[2020-09-04 05:00] VITALS: BP 145/86
[2020-09-04] MEDS: METOCLOPRAMIDE HCL 5MG/ml INJ 2ml VIAL IV SCH ×3 (05:47→21:23)
[2020-09-04] MEDS: CLINDAMYCIN HCL 150 MG CAP PO SCH (05:47)
[2020-09-04] MEDS: SUCRALFATE 1 GM/10 ML ORAL SUSP PO SCH ×4 (05:55→21:23)
[2020-09-04 06:33] LABS: Basophils # (auto) 0.1 10 ^3/uL (0-0.2); Basophils % (auto) 0.5 % (0.0-2.0); Eosinophils # (auto) 0.6 10 ^3/uL (0-0.8); Eosinophils % (auto) 3.3 % (0.0-7.0); Hematocrit 36.2 % (41.0-53.0); Hemoglobin 12.3 g/dL (13.5-17.5); Lymphocytes # (auto) 0.9 10 ^3/uL (0.4-5.4); Lymphocytes % (auto) 4.9 % (10.0-50.0); Mean Corpuscular Hemoglobin 29.5 pg (28.0-32.0); Mean Corpuscular Volume 86.8 fL (80.0-100.0); Monocytes % (auto) 5.4 % (0.0-12.0); Neutrophils # (auto) 15.9 10 ^3/uL (1.6-8.6); Neutrophils % (auto) 85.9 % (37.0-80.0); Platelet Count (auto) 239 10^3/uL (140-450); Red Blood Cells 4.17 10^6/uL (4.5-5.90); Red Cell Distribution Width 13.6 % (11.8-14.3); White Blood Cell 18.5 10^3/uL (4.4-10.8)
[2020-09-04 06:54] LABS: Albumin 1.5 g/dL (3.4-5.0); Calcium 7.7 mg/dL (8.5-10.1)
[2020-09-04 06:59] LABS: BUN/Creatinine Ratio 13.6; Bilirubin, Total 0.4 mg/dL (0.2-1.0); Total Protein 5.3 g/dL (6.4-8.2)
[2020-09-04] MEDS: Glucerna Carbsteady SHAKE Vanilla 8oz PO SCH ×3 (08:27→18:28)
[2020-09-04 09:00] VITALS: BP 137/87
[2020-09-04] MEDS: ESOMEPRAZOLE 40 MG/5ml VIAL INJ IV SCH ×2 (09:59→22:28)
[2020-09-04] MEDS: LOSARTAN POTASSIUM 50 MG TAB PO SCH ×2 (10:01→21:24)
[2020-09-04] MEDS: NIFEdipine ER 30 MG TAB PO SCH (10:02)
[2020-09-04] MEDS: HEPARIN SODIUM (PORCINE) 5000 UNITS/ML 1ML VIAL SC SCH ×2 (10:04→21:25)
[2020-09-04] MEDS ORDERED: POTASSIUM CHL 20 Meq TABLET PO ONE (10:30)
[2020-09-04] MEDS: INSULIN LANTUS (GLARGINE) 1 /0.01ml (100units/ml) SC SCH (11:33)
[2020-09-04 13:00] VITALS: BP 145/80
[2020-09-04 16:40] VITALS: BP 139/77
[2020-09-04] MEDS: ERGOCALCIFEROL 50,000 UNIT(1.25MG) CAP PO SCH (20:00)
[2020-09-04 22:00] VITALS: BP 153/77
[2020-09-05] MEDS: InsuLIN REG 1unit/0.01ml Soln (100units/ml) SC SCH ×7 (00:01→23:46)
[2020-09-05] MEDS: ACCU-CHEK COMFORT CURVE STRIP VI SCH ×6 (04:47→23:45)
[2020-09-05 05:00] VITALS: BP 137/79
[2020-09-05] MEDS: SUCRALFATE 1 GM/10 ML ORAL SUSP PO SCH ×4 (06:00→21:48)
[2020-09-05] MEDS: METOCLOPRAMIDE HCL 5MG/ml INJ 2ml VIAL IV SCH ×3 (06:03→21:48)
[2020-09-05] MEDS: PIPERACILLIN-TAZOB 3.375GM 100 ML IV SCH ×4 (06:03→23:45)
[2020-09-05 06:23] LABS: Basophils # (auto) 0.1 10 ^3/uL (0-0.2); Basophils % (auto) 0.4 % (0.0-2.0); Eosinophils # (auto) 0.5 10 ^3/uL (0-0.8); Eosinophils % (auto) 3.4 % (0.0-7.0); Hematocrit 35.9 % (41.0-53.0); Hemoglobin 12.2 g/dL (13.5-17.5); Lymphocytes # (auto) 0.9 10 ^3/uL (0.4-5.4); Lymphocytes % (auto) 5.9 % (10.0-50.0); Mean Corpuscular Hemoglobin 29.4 pg (28.0-32.0); Mean Corpuscular Volume 86.4 fL (80.0-100.0); Neutrophils # (auto) 12.5 10 ^3/uL (1.6-8.6); Neutrophils % (auto) 83.3 % (37.0-80.0); Nucleated Red Blood Cells % 0.1 %; Platelet Count (auto) 242 10^3/uL (140-450); Red Blood Cells 4.15 10^6/uL (4.5-5.90); Red Cell Distribution Width 13.2 % (11.8-14.3)
[2020-09-05 06:44] LABS: INR 1.13 (0.9-1.15); Partial Thromboplastin Time 30.2 sec (23.0-31.2)
[2020-09-05 06:48] LABS: Albumin 1.5 g/dL (3.4-5.0); BUN/Creatinine Ratio 10.9; Bilirubin, Total 0.5 mg/dL (0.2-1.0); CRP High Sensitivity 9.82 mg/dL (< 0.3); Calcium 7.6 mg/dL (8.5-10.1); Total Protein 5.2 g/dL (6.4-8.2)
[2020-09-05] MEDS: Glucerna Carbsteady SHAKE Vanilla 8oz PO SCH ×3 (08:00→18:00)
[2020-09-05 09:00] VITALS: BP 157/84
[2020-09-05] MEDS: LOSARTAN POTASSIUM 50 MG TAB PO SCH ×2 (09:24→21:49)
[2020-09-05] MEDS: ESOMEPRAZOLE 40 MG/5ml VIAL INJ IV SCH ×2 (09:25→21:48)
[2020-09-05] MEDS: NIFEdipine ER 30 MG TAB PO SCH (09:25)
[2020-09-05] MEDS: INSULIN LANTUS (GLARGINE) 1 /0.01ml (100units/ml) SC SCH (09:53)
[2020-09-05] MEDS ORDERED: MIDAZOLAM HCL 1MG/1ML-2 ML VIAL ONE (09:59)
[2020-09-05] MEDS ORDERED: fentaNYL CITRATE 100 MCG/2 ML VL ONE ×2 (09:59→11:12)
[2020-09-05] MEDS ORDERED: KETAMINE HCL 10 ML ONE (10:00)
[2020-09-05] MEDS ORDERED: MEPERIDINE HCL (25 MG/ML) 1ML VIAL ONE (10:00)
[2020-09-05] MEDS ORDERED: SODIUM CHLORIDE LOCK 10 ML ONE (10:00)
[2020-09-05] MEDS ORDERED: PROPOFOL 10 MG/ML 20 ML IV ONE (10:00)
[2020-09-05] MEDS ORDERED: ONDANSETRON HCL 4 MG/2 ML VIAL ONE (10:00)
[2020-09-05] MEDS ORDERED: ROCURONIUM 10MG/ML 10ML VIAL IV ONE (10:00)
[2020-09-05] MEDS: HEPARIN SODIUM (PORCINE) 5000 UNITS/ML 1ML VIAL SC SCH ×2 (10:00→21:51)
[2020-09-05] MEDS ORDERED: TRANEXAMIC ACID 20 ML ONE (10:01)
[2020-09-05] MEDS ORDERED: POTASSIUM CHL 20 Meq TABLET PO ONE (11:00)
[2020-09-05] MEDS ORDERED: BACITRACIN INJ 50000 UNIT VIAL ONE (11:29)
[2020-09-05] MEDS ORDERED: HYDROmorphone HCL 2 MG/ML VL IV PRN (12:15)
[2020-09-05] MEDS ORDERED: fentaNYL CITRATE 100 MCG/2 ML VL IV PRN (12:15)
[2020-09-05] MEDS ORDERED: MORPHINE SULFATE 4 MG/ML SYR/VIAL IV PRN (12:15)
[2020-09-05 13:00] VITALS: BP 144/92
[2020-09-05 13:05] LABS: Cholesterol 86 mg/dL (< 200); HDL Cholesterol 15 mg/dL (40-59); LDL Cholesterol 47 mg/dL (< 100); Triglycerides 154 mg/dL (< 150)
[2020-09-05 17:00] VITALS: BP 156/85
[2020-09-05] MEDS ORDERED: LACTATED RINGER'S 1,000 ML IV SCH (19:00)
[2020-09-05] MEDS: LACTATED RINGER'S 1,000 ML IV SCH (19:39)
[2020-09-05] MEDS: TEMAZEPAM 15 MG CAP PO PRN (21:50)
[2020-09-05 22:00] VITALS: BP 143/80
[2020-09-06] MEDS: ACCU-CHEK COMFORT CURVE STRIP VI SCH ×5 (04:37→20:20)
[2020-09-06] MEDS: InsuLIN REG 1unit/0.01ml Soln (100units/ml) SC SCH ×5 (04:39→20:31)
[2020-09-06 05:00] VITALS: BP 145/83
[2020-09-06] MEDS: LACTATED RINGER'S 1,000 ML IV SCH ×2 (05:02→14:32)
[2020-09-06] MEDS: METOCLOPRAMIDE HCL 5MG/ml INJ 2ml VIAL IV SCH ×3 (06:24→21:59)
[2020-09-06] MEDS: PIPERACILLIN-TAZOB 3.375GM 100 ML IV SCH ×4 (06:24→23:59)
[2020-09-06] MEDS: SUCRALFATE 1 GM/10 ML ORAL SUSP PO SCH ×4 (06:24→21:59)
[2020-09-06 06:48] LABS: Basophils # (auto) 0.1 10 ^3/uL (0-0.2); Basophils % (auto) 0.4 % (0.0-2.0); Eosinophils # (auto) 0.4 10 ^3/uL (0-0.8); Eosinophils % (auto) 2.2 % (0.0-7.0); Hemoglobin 11.8 g/dL (13.5-17.5); Lymphocytes # (auto) 1.2 10 ^3/uL (0.4-5.4); Lymphocytes % (auto) 7.3 % (10.0-50.0); Mean Corpuscular Hemoglobin 29.3 pg (28.0-32.0); Mean Corpuscular Hgb Conc. 33.6 g/dL (32.0-36.0); Mean Corpuscular Volume 87.4 fL (80.0-100.0); Monocytes # (auto) 1.1 10 ^3/uL (0-1.3); Monocytes % (auto) 6.5 % (0.0-12.0); Neutrophils # (auto) 14.2 10 ^3/uL (1.6-8.6); Neutrophils % (auto) 83.6 % (37.0-80.0); Platelet Count (auto) 280 10^3/uL (140-450); Red Blood Cells 4.01 10^6/uL (4.5-5.90); Red Cell Distribution Width 13.3 % (11.8-14.3)
[2020-09-06 07:09] LABS: Calcium 7.2 mg/dL (8.5-10.1); Potassium 3.3 mmol/L (3.5-5.1)
[2020-09-06 07:12] LABS: BUN/Creatinine Ratio 10.5
[2020-09-06] MEDS: HYDROmorphone HCL 2 MG/ML VL IV PRN ×2 (08:50→13:41)
[2020-09-06] MEDS: NIFEdipine ER 30 MG TAB PO SCH (08:51)
[2020-09-06 09:00] VITALS: BP 144/82
[2020-09-06] MEDS: ESOMEPRAZOLE 40 MG/5ml VIAL INJ IV SCH ×2 (10:04→21:59)
[2020-09-06] MEDS: LOSARTAN POTASSIUM 50 MG TAB PO SCH ×2 (10:05→22:00)
[2020-09-06] MEDS: Glucerna Carbsteady SHAKE Vanilla 8oz PO SCH ×3 (10:06→18:07)
[2020-09-06] MEDS: INSULIN LANTUS (GLARGINE) 1 /0.01ml (100units/ml) SC SCH (10:09)
[2020-09-06] MEDS: ENOXAPARIN SOD 40 MG/0.4 ML SYRINGE SC SCH (10:35)
[2020-09-06] MEDS ORDERED: POTASSIUM CHL 20 Meq TABLET PO ONE (10:45)
[2020-09-06] MEDS ORDERED: SPIRONOLACTONE 25 MG TAB PO ONE (12:45)
[2020-09-06 13:00] VITALS: BP 148/87
[2020-09-06 17:00] VITALS: BP 144/88
[2020-09-06 22:00] VITALS: BP 139/80
[2020-09-07] MEDS: LACTATED RINGER'S 1,000 ML IV SCH ×2 (01:00→11:00)
[2020-09-07] MEDS: InsuLIN REG 1unit/0.01ml Soln (100units/ml) SC SCH ×6 (03:46→20:32)
[2020-09-07] MEDS: ACCU-CHEK COMFORT CURVE STRIP VI SCH ×6 (03:46→20:30)
[2020-09-07 05:00] VITALS: BP 143/80
[2020-09-07 05:08] LABS: Hematocrit 31.9 % (41.0-53.0); Hemoglobin 10.7 g/dL (13.5-17.5)
[2020-09-07 05:28] LABS: BUN/Creatinine Ratio 6.4; Calcium 7.1 mg/dL (8.5-10.1); Potassium 3.5 mmol/L (3.5-5.1)
[2020-09-07] MEDS: PIPERACILLIN-TAZOB 3.375GM 100 ML IV SCH ×3 (06:15→18:56)
[2020-09-07] MEDS: METOCLOPRAMIDE HCL 5MG/ml INJ 2ml VIAL IV SCH ×3 (06:15→22:27)
[2020-09-07] MEDS: SUCRALFATE 1 GM/10 ML ORAL SUSP PO SCH ×4 (06:15→22:26)
[2020-09-07 08:00] VITALS: BP 157/72
[2020-09-07] MEDS: Glucerna Carbsteady SHAKE Vanilla 8oz PO SCH ×3 (08:00→18:56)
[2020-09-07 09:00] VITALS: BP 157/72
[2020-09-07] MEDS ORDERED: POTASSIUM CHL 20 Meq TABLET PO ONE (10:30)
[2020-09-07] MEDS: ESOMEPRAZOLE 40 MG/5ml VIAL INJ IV SCH ×2 (11:04→22:27)
[2020-09-07] MEDS: SPIRONOLACTONE 25 MG TAB PO SCH (11:04)
[2020-09-07] MEDS: LOSARTAN POTASSIUM 50 MG TAB PO SCH ×2 (11:04→22:26)
[2020-09-07] MEDS: NIFEdipine ER 30 MG TAB PO SCH (11:06)
[2020-09-07] MEDS: INSULIN LANTUS (GLARGINE) 1 /0.01ml (100units/ml) SC SCH (11:07)
[2020-09-07] MEDS: ENOXAPARIN SOD 40 MG/0.4 ML SYRINGE SC SCH (11:08)
[2020-09-07 13:00] VITALS: BP 145/84
[2020-09-07] MEDS: HYDROmorphone HCL 2 MG/ML VL IV PRN ×2 (13:45→20:39)
[2020-09-07 17:00] VITALS: BP 121/71
[2020-09-07 22:00] VITALS: BP 144/83
[2020-09-08] MEDS: PIPERACILLIN-TAZOB 3.375GM 100 ML IV SCH ×3 (00:07→13:06)
[2020-09-08] MEDS: ACCU-CHEK COMFORT CURVE STRIP VI SCH ×6 (00:24→23:51)
[2020-09-08] MEDS: InsuLIN REG 1unit/0.01ml Soln (100units/ml) SC SCH ×6 (00:26→23:51)
[2020-09-08 05:00] VITALS: BP 123/76
[2020-09-08] MEDS: SUCRALFATE 1 GM/10 ML ORAL SUSP PO SCH ×4 (06:25→22:00)
[2020-09-08] MEDS: METOCLOPRAMIDE HCL 5MG/ml INJ 2ml VIAL IV SCH ×3 (06:25→22:00)
[2020-09-08 07:17] LABS: Hematocrit 30.4 % (41.0-53.0); Hemoglobin 10.1 g/dL (13.5-17.5)
[2020-09-08 08:00] VITALS: BP 152/68
[2020-09-08] MEDS: Glucerna Carbsteady SHAKE Vanilla 8oz PO SCH ×3 (08:00→18:00)
[2020-09-08 09:00] VITALS: BP 152/68
[2020-09-08] MEDS: SPIRONOLACTONE 25 MG TAB PO SCH (10:39)
[2020-09-08] MEDS: ESOMEPRAZOLE 40 MG/5ml VIAL INJ IV SCH (10:39)
[2020-09-08] MEDS: LOSARTAN POTASSIUM 50 MG TAB PO SCH ×2 (10:42→22:00)
[2020-09-08] MEDS: FLORASTOR (S. BOULARDII) 250 MG CAP PO SCH (10:43)
[2020-09-08] MEDS: NIFEdipine ER 30 MG TAB PO SCH (10:44)
[2020-09-08] MEDS: INSULIN LANTUS (GLARGINE) 1 /0.01ml (100units/ml) SC SCH (10:45)
[2020-09-08] MEDS: ENOXAPARIN SOD 40 MG/0.4 ML SYRINGE SC SCH (10:46)
[2020-09-08] MEDS: HYDROmorphone HCL 2 MG/ML VL IV PRN (10:46)
[2020-09-08] MEDS ORDERED: DEXTROSE (50%) 50ML SYRG IV PRN (12:00)
[2020-09-08 13:00] VITALS: BP 135/85
[2020-09-08 17:00] VITALS: BP 142/59
[2020-09-08 22:00] VITALS: BP 137/78
[2020-09-08] MEDS: PANTOPRAZOLE 40 MG TAB PO SCH (22:00)
[2020-09-08] MEDS: CIPROFLOXACIN HCL 500 MG TAB PO SCH (22:00)
[2020-09-09] VITALS (7 sets, daily range): BP systolic 148–172; BP diastolic 79–91
[2020-09-09] MEDS: HYDROmorphone HCL 2 MG/ML VL IV PRN ×4 (02:10→20:26)
[2020-09-09] MEDS: ACCU-CHEK COMFORT CURVE STRIP VI SCH ×4 (06:05→23:41)
[2020-09-09] MEDS: METOCLOPRAMIDE HCL 5MG/ml INJ 2ml VIAL IV SCH ×3 (06:10→22:35)
[2020-09-09] MEDS: InsuLIN REG 1unit/0.01ml Soln (100units/ml) SC SCH ×4 (06:11→23:43)
[2020-09-09] MEDS: SUCRALFATE 1 GM/10 ML ORAL SUSP PO SCH ×4 (06:11→22:35)
[2020-09-09 06:34] LABS: Basophils # (auto) 0.1 10 ^3/uL (0-0.2); Basophils % (auto) 0.4 % (0.0-2.0); Eosinophils # (auto) 0.6 10 ^3/uL (0-0.8); Eosinophils % (auto) 5.1 % (0.0-7.0); Hematocrit 29.4 % (41.0-53.0); Hemoglobin 9.9 g/dL (13.5-17.5); Lymphocytes # (auto) 1.3 10 ^3/uL (0.4-5.4); Mean Corpuscular Hemoglobin 29.6 pg (28.0-32.0); Mean Corpuscular Hgb Conc. 33.7 g/dL (32.0-36.0); Mean Corpuscular Volume 87.7 fL (80.0-100.0); Monocytes # (auto) 0.6 10 ^3/uL (0-1.3); Monocytes % (auto) 5.2 % (0.0-12.0); Neutrophils # (auto) 9.6 10 ^3/uL (1.6-8.6); Neutrophils % (auto) 78.3 % (37.0-80.0); Nucleated Red Blood Cells % 0.1 %; Platelet Count (auto) 379 10^3/uL (140-450); Red Blood Cells 3.35 10^6/uL (4.5-5.90); Red Cell Distribution Width 13.7 % (11.8-14.3); White Blood Cell 12.2 10^3/uL (4.4-10.8)
[2020-09-09 06:54] LABS: BUN/Creatinine Ratio 8.9; Calcium 7.3 mg/dL (8.5-10.1); Potassium 3.4 mmol/L (3.5-5.1)
[2020-09-09] MEDS: Glucerna Carbsteady SHAKE Vanilla 8oz PO SCH ×3 (08:00→18:00)
[2020-09-09] MEDS: CIPROFLOXACIN HCL 500 MG TAB PO SCH ×2 (11:13→22:35)
[2020-09-09] MEDS: SPIRONOLACTONE 25 MG TAB PO SCH (11:13)
[2020-09-09] MEDS: NIFEdipine ER 30 MG TAB PO SCH (11:15)
[2020-09-09] MEDS: FLORASTOR (S. BOULARDII) 250 MG CAP PO SCH (11:15)
[2020-09-09] MEDS: LOSARTAN POTASSIUM 50 MG TAB PO SCH ×2 (11:15→22:36)
[2020-09-09] MEDS: PANTOPRAZOLE 40 MG TAB PO SCH ×2 (11:16→22:36)
[2020-09-09] MEDS: ENOXAPARIN SOD 40 MG/0.4 ML SYRINGE SC SCH (11:16)
[2020-09-09] MEDS: INSULIN LANTUS (GLARGINE) 1 /0.01ml (100units/ml) SC SCH (11:34)
[2020-09-09] MEDS ORDERED: POTASSIUM EFFERVESENT TAB 25 MEQ PO ONE (12:00)
[2020-09-09] MEDS ORDERED: amLODIPine BESYLATE 5 MG TAB PO ONE (16:15)
[2020-09-09] MEDS: TEMAZEPAM 15 MG CAP PO PRN (23:45)
[2020-09-10] MEDS: HYDROmorphone HCL 2 MG/ML VL IV PRN ×6 (01:02→23:41)
[2020-09-10 05:19] LABS: Basophils # (auto) 0.1 10 ^3/uL (0-0.2); Basophils % (auto) 0.8 % (0.0-2.0); Eosinophils # (auto) 0.7 10 ^3/uL (0-0.8); Eosinophils % (auto) 5.6 % (0.0-7.0); Hematocrit 34.1 % (41.0-53.0); Hemoglobin 11.2 g/dL (13.5-17.5); Lymphocytes % (auto) 15.9 % (10.0-50.0); Mean Corpuscular Hemoglobin 28.8 pg (28.0-32.0); Mean Corpuscular Volume 87.4 fL (80.0-100.0); Monocytes # (auto) 0.6 10 ^3/uL (0-1.3); Monocytes % (auto) 4.9 % (0.0-12.0); Neutrophils # (auto) 9.3 10 ^3/uL (1.6-8.6); Neutrophils % (auto) 72.8 % (37.0-80.0); Nucleated Red Blood Cells % 0.1 %; Platelet Count (auto) 451 10^3/uL (140-450); White Blood Cell 12.8 10^3/uL (4.4-10.8)
[2020-09-10 05:30] VITALS: BP 141/85
[2020-09-10] MEDS: ACCU-CHEK COMFORT CURVE STRIP VI SCH ×4 (05:35→23:41)
[2020-09-10] MEDS: InsuLIN REG 1unit/0.01ml Soln (100units/ml) SC SCH ×4 (05:35→23:48)
[2020-09-10 05:41] LABS: Calcium 7.6 mg/dL (8.5-10.1); Magnesium 2.2 mg/dL (1.6-2.6); Potassium 3.7 mmol/L (3.5-5.1)
[2020-09-10 05:43] LABS: BUN/Creatinine Ratio 9.7
[2020-09-10] MEDS: METOCLOPRAMIDE HCL 5MG/ml INJ 2ml VIAL IV SCH ×3 (06:07→21:35)
[2020-09-10] MEDS: SUCRALFATE 1 GM/10 ML ORAL SUSP PO SCH ×4 (06:07→21:35)
[2020-09-10] MEDS: Glucerna Carbsteady SHAKE Vanilla 8oz PO SCH ×3 (08:00→18:00)
[2020-09-10 09:00] VITALS: BP 150/83
[2020-09-10 09:43] VITALS: BP 150/83
[2020-09-10] MEDS: INSULIN LANTUS (GLARGINE) 1 /0.01ml (100units/ml) SC SCH (10:00)
[2020-09-10] MEDS: CIPROFLOXACIN HCL 500 MG TAB PO SCH ×2 (10:18→21:35)
[2020-09-10] MEDS: FLORASTOR (S. BOULARDII) 250 MG CAP PO SCH (10:18)
[2020-09-10] MEDS: NIFEdipine ER 30 MG TAB PO SCH (10:19)
[2020-09-10] MEDS: ENOXAPARIN SOD 40 MG/0.4 ML SYRINGE SC SCH (10:20)
[2020-09-10] MEDS: amLODIPine BESYLATE 5 MG TAB PO SCH (10:20)
[2020-09-10] MEDS: PANTOPRAZOLE 40 MG TAB PO SCH ×2 (10:20→21:36)
[2020-09-10] MEDS: LOSARTAN POTASSIUM 50 MG TAB PO SCH ×2 (10:21→21:36)
[2020-09-10] MEDS: SPIRONOLACTONE 25 MG TAB PO SCH (10:21)
[2020-09-10 13:00] VITALS: BP 155/77
[2020-09-10] MEDS ORDERED: GABA-339 PO (13:18)
[2020-09-10 17:00] VITALS: BP 152/88
[2020-09-10 22:00] VITALS: BP 141/84
[2020-09-11 05:00] VITALS: BP 145/82
[2020-09-11] MEDS: METOCLOPRAMIDE HCL 5MG/ml INJ 2ml VIAL IV SCH ×3 (05:40→21:59)
[2020-09-11] MEDS: ACCU-CHEK COMFORT CURVE STRIP VI SCH ×4 (05:40→23:29)
[2020-09-11] MEDS: InsuLIN REG 1unit/0.01ml Soln (100units/ml) SC SCH ×4 (05:46→23:30)
[2020-09-11] MEDS: HYDROmorphone HCL 2 MG/ML VL IV PRN ×2 (05:50→22:09)
[2020-09-11] MEDS: SUCRALFATE 1 GM/10 ML ORAL SUSP PO SCH ×4 (06:13→21:59)
[2020-09-11 06:44] LABS: Basophils # (auto) 0.1 10 ^3/uL (0-0.2); Basophils % (auto) 0.5 % (0.0-2.0); Eosinophils # (auto) 0.7 10 ^3/uL (0-0.8); Eosinophils % (auto) 5.5 % (0.0-7.0); Hematocrit 30.9 % (41.0-53.0); Hemoglobin 10.4 g/dL (13.5-17.5); Lymphocytes # (auto) 1.8 10 ^3/uL (0.4-5.4); Lymphocytes % (auto) 14.8 % (10.0-50.0); Mean Corpuscular Hemoglobin 29.5 pg (28.0-32.0); Mean Corpuscular Hgb Conc. 33.8 g/dL (32.0-36.0); Mean Corpuscular Volume 87.2 fL (80.0-100.0); Monocytes # (auto) 0.6 10 ^3/uL (0-1.3); Monocytes % (auto) 4.8 % (0.0-12.0); Neutrophils # (auto) 8.9 10 ^3/uL (1.6-8.6); Neutrophils % (auto) 74.4 % (37.0-80.0); Platelet Count (auto) 440 10^3/uL (140-450); Red Blood Cells 3.54 10^6/uL (4.5-5.90); Red Cell Distribution Width 13.6 % (11.8-14.3)
[2020-09-11 06:58] LABS: BUN/Creatinine Ratio 10.5; Calcium 7.9 mg/dL (8.5-10.1); Potassium 3.7 mmol/L (3.5-5.1)
[2020-09-11] MEDS: Glucerna Carbsteady SHAKE Vanilla 8oz PO SCH ×3 (08:00→18:00)
[2020-09-11 09:00] VITALS: BP 153/93
[2020-09-11] MEDS: amLODIPine BESYLATE 5 MG TAB PO SCH (09:53)
[2020-09-11] MEDS: CIPROFLOXACIN HCL 500 MG TAB PO SCH ×2 (09:53→21:59)
[2020-09-11] MEDS: NIFEdipine ER 30 MG TAB PO SCH (09:54)
[2020-09-11] MEDS: PANTOPRAZOLE 40 MG TAB PO SCH ×2 (10:00→22:00)
[2020-09-11] MEDS: LOSARTAN POTASSIUM 50 MG TAB PO SCH ×2 (10:00→21:59)
[2020-09-11] MEDS: FLORASTOR (S. BOULARDII) 250 MG CAP PO SCH (10:00)
[2020-09-11] MEDS: SPIRONOLACTONE 25 MG TAB PO SCH (10:00)
[2020-09-11] MEDS: ENOXAPARIN SOD 40 MG/0.4 ML SYRINGE SC SCH (10:00)
[2020-09-11] MEDS: INSULIN LANTUS (GLARGINE) 1 /0.01ml (100units/ml) SC SCH (10:00)
[2020-09-11 13:00] VITALS: BP 159/78
[2020-09-11 14:50] VITALS: BP 145/86
[2020-09-11] MEDS ORDERED: fentaNYL CITRATE 100 MCG/2 ML VL ONE (15:25)
[2020-09-11] MEDS ORDERED: MIDAZOLAM HCL 1MG/1ML-2 ML VIAL ONE (15:25)
[2020-09-11] MEDS ORDERED: ROCURONIUM 10MG/ML 10ML VIAL IV ONE (15:25)
[2020-09-11] MEDS ORDERED: MEPERIDINE HCL (25 MG/ML) 1ML VIAL ONE (15:25)
[2020-09-11] MEDS ORDERED: SODIUM CHLORIDE LOCK 10 ML ONE (15:26)
[2020-09-11] MEDS ORDERED: PROPOFOL 10 MG/ML 20 ML IV ONE (15:26)
[2020-09-11] MEDS ORDERED: ONDANSETRON HCL 4 MG/2 ML VIAL ONE (15:26)
[2020-09-11] MEDS ORDERED: ceFAZolin 1GM/50ML 100 ML IV ONE (15:36)
[2020-09-11] MEDS: LACTATED RINGER'S 1,000 ML IV SCH ×2 (16:15→23:35)
[2020-09-11] MEDS ORDERED: ceFAZolin 1GM VL ONE (16:26)
[2020-09-11] MEDS: ERGOCALCIFEROL 50,000 UNIT(1.25MG) CAP PO SCH (19:32)
[2020-09-11 22:00] VITALS: BP 138/95
[2020-09-12] MEDS: HYDROmorphone HCL 2 MG/ML VL IV PRN ×4 (03:55→23:40)
[2020-09-12 05:49] LABS: Basophils # (auto) 0.1 10 ^3/uL (0-0.2); Eosinophils # (auto) 0.3 10 ^3/uL (0-0.8); Lymphocytes # (auto) 1.3 10 ^3/uL (0.4-5.4); Monocytes # (auto) 0.7 10 ^3/uL (0-1.3)
[2020-09-12] MEDS: InsuLIN REG 1unit/0.01ml Soln (100units/ml) SC SCH ×4 (05:49→23:56)
[2020-09-12 05:52] VITALS: BP 163/92
[2020-09-12 05:52] LABS: Basophils % (auto) 0.5 % (0.0-2.0); Eosinophils % (auto) 1.8 % (0.0-7.0); Hematocrit 32.4 % (41.0-53.0); Hemoglobin 10.8 g/dL (13.5-17.5); Lymphocytes % (auto) 8.5 % (10.0-50.0); Mean Corpuscular Hemoglobin 29.2 pg (28.0-32.0); Mean Corpuscular Hgb Conc. 33.3 g/dL (32.0-36.0); Mean Corpuscular Volume 87.8 fL (80.0-100.0); Monocytes % (auto) 4.2 % (0.0-12.0); Neutrophils # (auto) 13.4 10 ^3/uL (1.6-8.6); Platelet Count (auto) 475 10^3/uL (140-450); Red Blood Cells 3.69 10^6/uL (4.5-5.90); Red Cell Distribution Width 13.5 % (11.8-14.3); White Blood Cell 15.7 10^3/uL (4.4-10.8)
[2020-09-12] MEDS: SUCRALFATE 1 GM/10 ML ORAL SUSP PO SCH ×4 (06:00→21:23)
[2020-09-12] MEDS: METOCLOPRAMIDE HCL 5MG/ml INJ 2ml VIAL IV SCH ×3 (06:00→21:20)
[2020-09-12] MEDS: ACCU-CHEK COMFORT CURVE STRIP VI SCH ×4 (06:00→23:56)
[2020-09-12 06:25] LABS: Potassium 4.1 mmol/L (3.5-5.1)
[2020-09-12 06:32] LABS: BUN/Creatinine Ratio 10.7; Calcium 7.9 mg/dL (8.5-10.1)
[2020-09-12] MEDS: Glucerna Carbsteady SHAKE Vanilla 8oz PO SCH ×3 (08:00→18:00)
[2020-09-12 09:00] VITALS: BP 147/95
[2020-09-12] MEDS: amLODIPine BESYLATE 5 MG TAB PO SCH (09:55)
[2020-09-12] MEDS: LOSARTAN POTASSIUM 50 MG TAB PO SCH ×2 (09:55→21:35)
[2020-09-12] MEDS: CIPROFLOXACIN HCL 500 MG TAB PO SCH (09:55)
[2020-09-12] MEDS: PANTOPRAZOLE 40 MG TAB PO SCH ×2 (09:55→21:23)
[2020-09-12] MEDS: SPIRONOLACTONE 25 MG TAB PO SCH (09:56)
[2020-09-12] MEDS: ENOXAPARIN SOD 40 MG/0.4 ML SYRINGE SC SCH (09:56)
[2020-09-12] MEDS: NIFEdipine ER 30 MG TAB PO SCH (09:56)
[2020-09-12] MEDS: FLORASTOR (S. BOULARDII) 250 MG CAP PO SCH (09:56)
[2020-09-12] MEDS: INSULIN LANTUS (GLARGINE) 1 /0.01ml (100units/ml) SC SCH (10:16)
[2020-09-12 13:00] VITALS: BP 145/96
[2020-09-12] MEDS: ceFAZolin 2 GM in D5W 5% 100 ML IV SCH ×2 (14:00→21:54)
[2020-09-12 16:36] VITALS: BP 140/83
[2020-09-12 21:54] VITALS: BP 133/77
[2020-09-13 05:00] VITALS: BP 145/78
[2020-09-13 05:30] LABS: Basophils # (auto) 0.1 10 ^3/uL (0-0.2); Basophils % (auto) 0.7 % (0.0-2.0); Eosinophils # (auto) 0.4 10 ^3/uL (0-0.8); Eosinophils % (auto) 3.2 % (0.0-7.0); Hematocrit 31.2 % (41.0-53.0); Hemoglobin 10.3 g/dL (13.5-17.5); Lymphocytes # (auto) 1.7 10 ^3/uL (0.4-5.4); Lymphocytes % (auto) 14.4 % (10.0-50.0); Mean Corpuscular Hemoglobin 28.8 pg (28.0-32.0); Mean Corpuscular Hgb Conc. 32.9 g/dL (32.0-36.0); Mean Corpuscular Volume 87.6 fL (80.0-100.0); Monocytes # (auto) 0.7 10 ^3/uL (0-1.3); Monocytes % (auto) 6.1 % (0.0-12.0); Neutrophils # (auto) 9.1 10 ^3/uL (1.6-8.6); Neutrophils % (auto) 75.6 % (37.0-80.0); Nucleated Red Blood Cells % 0.1 %; Platelet Count (auto) 478 10^3/uL (140-450); Red Blood Cells 3.56 10^6/uL (4.5-5.90); White Blood Cell 12.1 10^3/uL (4.4-10.8)
[2020-09-13] MEDS: InsuLIN REG 1unit/0.01ml Soln (100units/ml) SC SCH ×4 (05:45→23:30)
[2020-09-13 05:50] LABS: Calcium 7.9 mg/dL (8.5-10.1); Potassium 3.6 mmol/L (3.5-5.1)
[2020-09-13 05:52] LABS: BUN/Creatinine Ratio 10.4
[2020-09-13] MEDS: ceFAZolin 2 GM in D5W 5% 100 ML IV SCH ×3 (06:00→21:23)
[2020-09-13] MEDS: METOCLOPRAMIDE HCL 5MG/ml INJ 2ml VIAL IV SCH ×3 (06:00→21:23)
[2020-09-13] MEDS: ACCU-CHEK COMFORT CURVE STRIP VI SCH ×4 (06:00→23:26)
[2020-09-13] MEDS: SUCRALFATE 1 GM/10 ML ORAL SUSP PO SCH ×4 (06:49→21:23)
[2020-09-13] MEDS: Glucerna Carbsteady SHAKE Vanilla 8oz PO SCH ×3 (08:00→17:51)
[2020-09-13 08:43] VITALS: BP 153/82
[2020-09-13] MEDS: amLODIPine BESYLATE 5 MG TAB PO SCH (10:06)
[2020-09-13] MEDS: SPIRONOLACTONE 25 MG TAB PO SCH (10:06)
[2020-09-13] MEDS: NIFEdipine ER 30 MG TAB PO SCH (10:06)
[2020-09-13] MEDS: FLORASTOR (S. BOULARDII) 250 MG CAP PO SCH (10:06)
[2020-09-13] MEDS: ENOXAPARIN SOD 40 MG/0.4 ML SYRINGE SC SCH (10:07)
[2020-09-13] MEDS: PANTOPRAZOLE 40 MG TAB PO SCH ×2 (10:07→21:24)
[2020-09-13] MEDS: LOSARTAN POTASSIUM 50 MG TAB PO SCH ×2 (10:08→21:24)
[2020-09-13] MEDS: INSULIN LANTUS (GLARGINE) 1 /0.01ml (100units/ml) SC SCH (12:11)
[2020-09-13 13:00] VITALS: BP 126/80
[2020-09-13] MEDS: HYDROmorphone HCL 2 MG/ML VL IV PRN ×2 (13:52→21:40)
[2020-09-13 16:47] VITALS: BP 140/76
[2020-09-13 22:07] VITALS: BP 127/81
[2020-09-14 04:37] VITALS: BP 135/80
[2020-09-14] MEDS: ceFAZolin 2 GM in D5W 5% 100 ML IV SCH ×3 (06:05→22:27)
[2020-09-14] MEDS: SUCRALFATE 1 GM/10 ML ORAL SUSP PO SCH ×4 (06:06→22:28)
[2020-09-14] MEDS: ACCU-CHEK COMFORT CURVE STRIP VI SCH ×3 (06:06→17:59)
[2020-09-14] MEDS: METOCLOPRAMIDE HCL 5MG/ml INJ 2ml VIAL IV SCH ×3 (06:06→22:28)
[2020-09-14] MEDS: InsuLIN REG 1unit/0.01ml Soln (100units/ml) SC SCH ×3 (06:08→18:00)
[2020-09-14 07:19] LABS: Hematocrit 30.3 % (41.0-53.0)
[2020-09-14 08:37] VITALS: BP 130/78
[2020-09-14] MEDS: Glucerna Carbsteady SHAKE Vanilla 8oz PO SCH ×3 (08:38→17:58)
[2020-09-14] MEDS: LOSARTAN POTASSIUM 50 MG TAB PO SCH ×2 (10:06→23:22)
[2020-09-14] MEDS: SPIRONOLACTONE 25 MG TAB PO SCH (10:06)
[2020-09-14] MEDS: FLORASTOR (S. BOULARDII) 250 MG CAP PO SCH (10:06)
[2020-09-14] MEDS: amLODIPine BESYLATE 5 MG TAB PO SCH (10:06)
[2020-09-14] MEDS: PANTOPRAZOLE 40 MG TAB PO SCH ×2 (10:07→22:28)
[2020-09-14] MEDS: NIFEdipine ER 30 MG TAB PO SCH (10:07)
[2020-09-14] MEDS: INSULIN LANTUS (GLARGINE) 1 /0.01ml (100units/ml) SC SCH (10:08)
[2020-09-14] MEDS: ENOXAPARIN SOD 40 MG/0.4 ML SYRINGE SC SCH (10:08)
[2020-09-14 13:00] VITALS: BP 131/80
[2020-09-14] MEDS: HYDROmorphone HCL 2 MG/ML VL IV PRN ×2 (13:26→20:05)
[2020-09-14 16:24] VITALS: BP 133/75
[2020-09-15] MEDS: ACCU-CHEK COMFORT CURVE STRIP VI SCH ×4 (00:07→17:55)
[2020-09-15] MEDS: HYDROmorphone HCL 2 MG/ML VL IV PRN ×5 (00:07→20:40)
[2020-09-15] MEDS: InsuLIN REG 1unit/0.01ml Soln (100units/ml) SC SCH ×4 (02:44→17:59)
[2020-09-15 05:00] VITALS: BP 150/84
[2020-09-15] MEDS: METOCLOPRAMIDE HCL 5MG/ml INJ 2ml VIAL IV SCH ×3 (05:24→22:19)
[2020-09-15] MEDS: ceFAZolin 2 GM in D5W 5% 100 ML IV SCH ×3 (05:25→22:20)
[2020-09-15] MEDS: SUCRALFATE 1 GM/10 ML ORAL SUSP PO SCH ×4 (06:23→22:20)
[2020-09-15 06:31] LABS: Basophils # (auto) 0.1 10 ^3/uL (0-0.2); Eosinophils # (auto) 0.5 10 ^3/uL (0-0.8); Hematocrit 30.6 % (41.0-53.0); Lymphocytes # (auto) 1.7 10 ^3/uL (0.4-5.4); Mean Corpuscular Hemoglobin 29.3 pg (28.0-32.0); Monocytes # (auto) 0.5 10 ^3/uL (0-1.3); Neutrophils # (auto) 6.6 10 ^3/uL (1.6-8.6); Nucleated Red Blood Cells % 0.1 %
[2020-09-15 06:35] LABS: Basophils % (auto) 1.3 % (0.0-2.0); Eosinophils % (auto) 5.3 % (0.0-7.0); Hemoglobin 10.5 g/dL (13.5-17.5); Mean Corpuscular Hgb Conc. 34.2 g/dL (32.0-36.0); Mean Corpuscular Volume 85.7 fL (80.0-100.0); Monocytes % (auto) 5.6 % (0.0-12.0); Neutrophils % (auto) 69.8 % (37.0-80.0); Platelet Count (auto) 551 10^3/uL (140-450); Red Blood Cells 3.57 10^6/uL (4.5-5.90); Red Cell Distribution Width 13.6 % (11.8-14.3); White Blood Cell 9.4 10^3/uL (4.4-10.8)
[2020-09-15 06:48] LABS: Albumin 1.6 g/dL (3.4-5.0); Potassium 3.6 mmol/L (3.5-5.1)
[2020-09-15 07:05] LABS: BUN/Creatinine Ratio 11.4; Bilirubin, Total 0.2 mg/dL (0.2-1.0); Calcium 7.7 mg/dL (8.5-10.1); Magnesium 2.1 mg/dL (1.6-2.6); Phosphorus 2.9 mg/dL (2.5-4.90)
[2020-09-15] MEDS: Glucerna Carbsteady SHAKE Vanilla 8oz PO SCH ×3 (08:00→18:02)
[2020-09-15 09:00] VITALS: BP 123/83
[2020-09-15] MEDS: ENOXAPARIN SOD 40 MG/0.4 ML SYRINGE SC SCH (10:32)
[2020-09-15] MEDS: FLORASTOR (S. BOULARDII) 250 MG CAP PO SCH (10:33)
[2020-09-15] MEDS: amLODIPine BESYLATE 5 MG TAB PO SCH (10:33)
[2020-09-15] MEDS: NIFEdipine ER 30 MG TAB PO SCH (10:34)
[2020-09-15] MEDS: PANTOPRAZOLE 40 MG TAB PO SCH ×2 (10:34→22:20)
[2020-09-15] MEDS: SPIRONOLACTONE 25 MG TAB PO SCH (10:35)
[2020-09-15] MEDS: LOSARTAN POTASSIUM 50 MG TAB PO SCH ×2 (10:36→22:20)
[2020-09-15] MEDS: INSULIN LANTUS (GLARGINE) 1 /0.01ml (100units/ml) SC SCH (10:56)
[2020-09-15 13:00] VITALS: BP 131/80
[2020-09-15 16:51] VITALS: BP 146/80
[2020-09-15 21:16] VITALS: BP 136/82
[2020-09-16] MEDS: InsuLIN REG 1unit/0.01ml Soln (100units/ml) SC SCH ×4 (00:36→17:52)
[2020-09-16] MEDS: HYDROmorphone HCL 2 MG/ML VL IV PRN ×5 (00:40→20:43)
[2020-09-16 05:10] VITALS: BP 143/87
[2020-09-16] MEDS: METOCLOPRAMIDE HCL 5MG/ml INJ 2ml VIAL IV SCH ×3 (05:21→22:40)
[2020-09-16] MEDS: ceFAZolin 2 GM in D5W 5% 100 ML IV SCH ×3 (05:21→22:48)
[2020-09-16] MEDS: ACCU-CHEK COMFORT CURVE STRIP VI SCH ×4 (05:21→17:48)
[2020-09-16] MEDS: SUCRALFATE 1 GM/10 ML ORAL SUSP PO SCH ×4 (06:22→22:39)
[2020-09-16 08:00] VITALS: BP 148/82
[2020-09-16 08:46] VITALS: BP 148/82
[2020-09-16] MEDS: SPIRONOLACTONE 25 MG TAB PO SCH (08:58)
[2020-09-16] MEDS: Glucerna Carbsteady SHAKE Vanilla 8oz PO SCH ×3 (08:58→17:49)
[2020-09-16] MEDS: LOSARTAN POTASSIUM 50 MG TAB PO SCH ×2 (08:59→22:40)
[2020-09-16] MEDS: FLORASTOR (S. BOULARDII) 250 MG CAP PO SCH (09:00)
[2020-09-16] MEDS: amLODIPine BESYLATE 5 MG TAB PO SCH (09:01)
[2020-09-16] MEDS: NIFEdipine ER 30 MG TAB PO SCH (09:01)
[2020-09-16] MEDS: PANTOPRAZOLE 40 MG TAB PO SCH ×2 (09:02→22:40)
[2020-09-16] MEDS: INSULIN LANTUS (GLARGINE) 1 /0.01ml (100units/ml) SC SCH (09:17)
[2020-09-16] MEDS: ENOXAPARIN SOD 40 MG/0.4 ML SYRINGE SC SCH (09:18)
[2020-09-16 13:00] VITALS: BP 137/78
[2020-09-16 16:54] VITALS: BP 129/80
[2020-09-16 21:26] VITALS: BP 139/79
[2020-09-16] MEDS: TEMAZEPAM 15 MG CAP PO PRN (22:39)
[2020-09-17 00:42] VITALS: BP 147/78
[2020-09-17] MEDS: ACCU-CHEK COMFORT CURVE STRIP VI SCH ×4 (00:42→17:43)
[2020-09-17] MEDS: HYDROmorphone HCL 2 MG/ML VL IV PRN ×5 (00:43→20:54)
[2020-09-17] MEDS: InsuLIN REG 1unit/0.01ml Soln (100units/ml) SC SCH ×4 (00:51→17:45)
[2020-09-17 05:41] VITALS: BP 132/73
[2020-09-17] MEDS: METOCLOPRAMIDE HCL 5MG/ml INJ 2ml VIAL IV SCH ×3 (05:41→22:19)
[2020-09-17] MEDS: ceFAZolin 2 GM in D5W 5% 100 ML IV SCH ×3 (05:42→22:19)
[2020-09-17] MEDS: SUCRALFATE 1 GM/10 ML ORAL SUSP PO SCH ×4 (06:32→22:19)
[2020-09-17 09:00] VITALS: BP 146/78
[2020-09-17] MEDS: Glucerna Carbsteady SHAKE Vanilla 8oz PO SCH ×3 (09:55→17:43)
[2020-09-17] MEDS: LOSARTAN POTASSIUM 50 MG TAB PO SCH ×2 (09:56→22:19)
[2020-09-17] MEDS: FLORASTOR (S. BOULARDII) 250 MG CAP PO SCH (09:56)
[2020-09-17] MEDS: SPIRONOLACTONE 25 MG TAB PO SCH (09:56)
[2020-09-17] MEDS: amLODIPine BESYLATE 5 MG TAB PO SCH (09:56)
[2020-09-17] MEDS: PANTOPRAZOLE 40 MG TAB PO SCH ×2 (09:57→22:19)
[2020-09-17] MEDS: NIFEdipine ER 30 MG TAB PO SCH (09:57)
[2020-09-17] MEDS: ENOXAPARIN SOD 40 MG/0.4 ML SYRINGE SC SCH (09:57)
[2020-09-17] MEDS: INSULIN LANTUS (GLARGINE) 1 /0.01ml (100units/ml) SC SCH (12:21)
[2020-09-17 13:00] VITALS: BP 130/65
[2020-09-17 17:00] VITALS: BP 122/80
[2020-09-17 22:00] VITALS: BP 133/67
[2020-09-18] MEDS: ACCU-CHEK COMFORT CURVE STRIP VI SCH ×3 (00:40→12:31)
[2020-09-18] MEDS: HYDROmorphone HCL 2 MG/ML VL IV PRN ×4 (00:48→15:19)
[2020-09-18] MEDS: InsuLIN REG 1unit/0.01ml Soln (100units/ml) SC SCH ×3 (00:49→12:36)
[2020-09-18 05:00] VITALS: BP 121/84
[2020-09-18] MEDS: METOCLOPRAMIDE HCL 5MG/ml INJ 2ml VIAL IV SCH ×2 (06:19→14:00)
[2020-09-18] MEDS: ceFAZolin 2 GM in D5W 5% 100 ML IV SCH ×2 (06:19→14:00)
[2020-09-18] MEDS: SUCRALFATE 1 GM/10 ML ORAL SUSP PO SCH ×2 (06:28→12:31)
[2020-09-18] MEDS: Glucerna Carbsteady SHAKE Vanilla 8oz PO SCH ×2 (08:00→12:31)
[2020-09-18 08:30] VITALS: BP 144/83
[2020-09-18 08:43] LABS: Calcium 7.9 mg/dL (8.5-10.1); Potassium 3.9 mmol/L (3.5-5.1)
[2020-09-18] MEDS: SPIRONOLACTONE 25 MG TAB PO SCH (10:47)
[2020-09-18] MEDS: LOSARTAN POTASSIUM 50 MG TAB PO SCH (10:47)
[2020-09-18] MEDS: amLODIPine BESYLATE 5 MG TAB PO SCH (10:48)
[2020-09-18] MEDS: FLORASTOR (S. BOULARDII) 250 MG CAP PO SCH (10:48)
[2020-09-18] MEDS: PANTOPRAZOLE 40 MG TAB PO SCH (10:49)
[2020-09-18] MEDS: ENOXAPARIN SOD 40 MG/0.4 ML SYRINGE SC SCH (10:49)
[2020-09-18] MEDS: NIFEdipine ER 30 MG TAB PO SCH (10:49)
[2020-09-18] MEDS: INSULIN LANTUS (GLARGINE) 1 /0.01ml (100units/ml) SC SCH (12:37)
[2020-09-18 13:00] VITALS: BP 145/81
[2020-09-18 14:20] VITALS: BP 145/81
[2020-09-18] MEDS: ERGOCALCIFEROL 50,000 UNIT(1.25MG) CAP PO SCH (16:20)
== END 2020-09-18 17:07 | disposition home health service (06) | DRG 579 ==
LOC: ER 14:01 → TELE 23:32 → TELE-WESTW 08-31 01:45 → WEST WING 09-10 12:38
PROVIDERS: ADMIT Nurse Practitioner Family; ATTEND Internal Medicine
PROC: 0DB78ZX Excision of Stomach, Pylorus, Via Natural or Artificial Opening Endoscopic, Diagnostic (ICD-10-PCS; 2020-09-01)
PROC: 0DB58ZX Excision of Esophagus, Via Natural or Artificial Opening Endoscopic, Diagnostic (ICD-10-PCS; 2020-09-01)
PROC: 0DB98ZX Excision of Duodenum, Via Natural or Artificial Opening Endoscopic, Diagnostic (ICD-10-PCS; principal; 2020-09-01 13:29)
PROC: 0KBQ0ZZ Excision of Right Upper Leg Muscle, Open Approach (ICD-10-PCS; 2020-09-05)
PROC: 0K9Q0ZZ Drainage of Right Upper Leg Muscle, Open Approach (ICD-10-PCS; 2020-09-05)
PROC: 0KBQ0ZZ Excision of Right Upper Leg Muscle, Open Approach (ICD-10-PCS; 2020-09-11)
DX: L02.415 Cutaneous abscess of right lower limb (principal); E11.11 Type 2 diabetes mellitus with ketoacidosis with coma; N17.0 Acute kidney failure with tubular necrosis; K22.10 Ulcer of esophagus without bleeding; E44.0 Moderate protein-calorie malnutrition; E87.1 Hypo-osmolality and hyponatremia; N39.0 Urinary tract infection, site not specified; E11.22 Type 2 diabetes mellitus with diabetic chronic kidney disease; E55.9 Vitamin D deficiency, unspecified; E78.5 Hyperlipidemia, unspecified; E87.6 Hypokalemia; H66.91 Otitis media, unspecified, right ear; I12.9 Hypertensive chronic kidney disease with stage 1 through stage 4 chronic kidney disease, or unspecified chronic kidney disease; K21.00 Gastro-esophageal reflux disease with esophagitis, without bleeding; K29.70 Gastritis, unspecified, without bleeding; K29.90 Gastroduodenitis, unspecified, without bleeding; M16.11 Unilateral primary osteoarthritis, right hip; K44.9 Diaphragmatic hernia without obstruction or gangrene; M60.9 Myositis, unspecified; N18.9 Chronic kidney disease, unspecified; Z82.3 Family history of stroke; Z82.49 Family history of ischemic heart disease and other diseases of the circulatory system; Z83.3 Family history of diabetes mellitus; Z87.891 Personal history of nicotine dependence; Z20.822 Contact with and (suspected) exposure to COVID-19; Z88.1 Allergy status to other antibiotic agents; B95.61 Methicillin susceptible Staphylococcus aureus infection as the cause of diseases classified elsewhere; D64.9 Anemia, unspecified; E66.9 Obesity, unspecified; Z68.31 Body mass index [BMI] 31.0-31.9, adult; D72.829 Elevated white blood cell count, unspecified
CPT/HCPCS: 36415; 36600; 71045; 73502; 73718; 74176; 80048; 80053; 80061; 81001; 82010; 82306; 82805; 82962; 83036; 83605; 83735; 83930; 84100; 84132; 84443; 84484; 85007; 85014; 85018; 85025; 85027; 85610; 85652; 85730; 86141; 86850; 86900; 86901; 87040; 87070; 87075; 87077; 87081; 87086; 87186; 87205; 87426; 93005; 93970; 93971; 96361; 96365; 96366; 96372; 96375; 97110; 97116; 97163; 97530; G0378; J0690; J1815; J1885; J2001; J2250; J2405; J2543; J2704; J3490; J7060

== ENCOUNTER 2021-02-14 12:27 | Inpatient (IN) | payer BC ==
[~2021-02-14] VITALS: Ht 182.9 cm; Wt 102.4 kg
[~2021-02-14 12:27] MED LIST changes: -CLOP75TA70 PO; -DAKI0.12 TOP; -DOXY-286 PO; -FURO1TAB31 PO; -PANT40TA2 PO
[2021-02-14 13:13] LABS: Basophils # (auto) 0.2 10 ^3/uL (0-0.2); Basophils % (auto) 0.9 % (0.0-2.0); Eosinophils # (auto) 0.2 10 ^3/uL (0-0.8); Eosinophils % (auto) 0.7 % (0.0-7.0); Hematocrit 37.6 % (41.0-53.0); Hemoglobin 12.5 g/dL (13.5-17.5); Lymphocytes # (auto) 1.3 10 ^3/uL (0.4-5.4); Lymphocytes % (auto) 6.2 % (10.0-50.0); Mean Corpuscular Hemoglobin 28.1 pg (28.0-32.0); Mean Corpuscular Hgb Conc. 33.3 g/dL (32.0-36.0); Mean Corpuscular Volume 84.3 fL (80.0-100.0); Monocytes % (auto) 4.6 % (0.0-12.0); Neutrophils # (auto) 18.5 10 ^3/uL (1.6-8.6); Neutrophils % (auto) 87.6 % (37.0-80.0); Red Blood Cells 4.46 10^6/uL (4.5-5.90); Red Cell Distribution Width 13.8 % (11.8-14.3); White Blood Cell 21.2 10^3/uL (4.4-10.8)
[2021-02-14] MEDS ORDERED: cloNIDine HCL 0.1 MG TAB PO ONE (13:15)
[2021-02-14] MEDS ORDERED: PIPERACILLIN-TAZOB 3.375GM 100 ML IV ONE (13:30)
[2021-02-14 13:36] LABS: Calcium 8.9 mg/dL (8.5-10.1); Potassium 3.8 mmol/L (3.5-5.1)
[2021-02-14 13:43] LABS: BUN/Creatinine Ratio 18.8; Bilirubin, Total 0.4 mg/dL (0.2-1.0); Total Protein 7.6 g/dL (6.4-8.2)
[2021-02-14] MEDS ORDERED: NITROGLYCERIN 0.4 MG SL TAB SL PRN (16:00)
[2021-02-14] MEDS ORDERED: DOCUSATE CALCIUM 240 MG CAP PO PRN (16:00)
[2021-02-14] MEDS ORDERED: ONDANSETRON HCL 4 MG/2 ML VIAL IV PRN (16:00)
[2021-02-14] MEDS ORDERED: DEXTROSE (50%) 50ML SYRG IV PRN ×2 (16:00→23:45)
[2021-02-14] MEDS ORDERED: MORPHINE SULFATE INJECTION 2 MG/ML SYRG IV PRN (16:00)
[2021-02-14] MEDS ORDERED: SODIUM CHLORIDE 0.9% 2,000 ML IV ONE (16:00)
[2021-02-14] MEDS ORDERED: ACETAMINOPHEN 500 MG TAB PO PRN (16:00)
[2021-02-14] MEDS ORDERED: LORazepam 0.5 MG TAB PO PRN (16:00)
[2021-02-14] MEDS: ACCU-CHEK COMFORT CURVE STRIP VI SCH ×2 (20:00→21:30)
[2021-02-14] MEDS: InsuLIN REG 1unit/0.01ml Soln (100units/ml) SC SCH ×2 (20:00→21:31)
[2021-02-14] MEDS ORDERED: PIPERACILLIN-TAZOB 3.375GM 100 ML IV SCH (21:00)
[2021-02-14] MEDS: LINEZOLID 600MG/300ML 300 ML IV SCH (21:47)
[2021-02-14] MEDS: MEROPENEM 1GM IVPB 100 ML IV SCH (22:00)
[2021-02-14] MEDS ORDERED: INSULIN LANTUS (GLARGINE) 1 /0.01ml (100units/ml) SC SCH (22:00)
[2021-02-14] MEDS ORDERED: InsuLIN REG 1unit/0.01ml Soln (100units/ml) IV ONE (23:45)
[2021-02-14] MEDS ORDERED: SODIUM CHLORIDE 0.9% 1,000 ML IV ONE (23:45)
[2021-02-15 01:30] VITALS: BP 123/70
[2021-02-15] MEDS: SODIUM CHLORIDE 0.9% 1,000 ML IV SCH ×3 (01:30→17:35)
[2021-02-15] MEDS: MORPHINE SULFATE 4 MG/ML SYR/VIAL IV PRN (03:42)
[2021-02-15] MEDS: ACCU-CHEK COMFORT CURVE STRIP VI SCH ×6 (04:05→20:22)
[2021-02-15] MEDS: InsuLIN REG 1unit/0.01ml Soln (100units/ml) SC SCH ×6 (04:17→20:25)
[2021-02-15 05:00] VITALS: BP 124/62
[2021-02-15] MEDS: MEROPENEM 1GM IVPB 100 ML IV SCH ×3 (05:34→22:55)
[2021-02-15 05:44] LABS: Basophils # (auto) 0 10 ^3/uL (0-0.2); Basophils % (auto) 0.2 % (0.0-2.0); Eosinophils # (auto) 0.2 10 ^3/uL (0-0.8); Eosinophils % (auto) 1.2 % (0.0-7.0); Hematocrit 31.9 % (41.0-53.0); Hemoglobin 10.7 g/dL (13.5-17.5); Lymphocytes # (auto) 0.4 10 ^3/uL (0.4-5.4); Lymphocytes % (auto) 2.6 % (10.0-50.0); Mean Corpuscular Hemoglobin 28.1 pg (28.0-32.0); Mean Corpuscular Hgb Conc. 33.6 g/dL (32.0-36.0); Mean Corpuscular Volume 83.8 fL (80.0-100.0); Monocytes # (auto) 0.4 10 ^3/uL (0-1.3); Monocytes % (auto) 2.4 % (0.0-12.0); Neutrophils # (auto) 14.3 10 ^3/uL (1.6-8.6); Neutrophils % (auto) 93.6 % (37.0-80.0); Red Blood Cells 3.81 10^6/uL (4.5-5.90); Red Cell Distribution Width 13.6 % (11.8-14.3); White Blood Cell 15.3 10^3/uL (4.4-10.8)
[2021-02-15 05:58] LABS: Potassium 3.6 mmol/L (3.5-5.1)
[2021-02-15 05:59] LABS: INR 1.1 (0.9-1.15); Partial Thromboplastin Time 31.9 sec (23.6-33.0)
[2021-02-15 06:04] LABS: Albumin 1.5 g/dL (3.4-5.0); BUN/Creatinine Ratio 18.4; Bilirubin, Total 0.3 mg/dL (0.2-1.0); Calcium 7.7 mg/dL (8.5-10.1)
[2021-02-15] MEDS: LINEZOLID 600MG/300ML 300 ML IV SCH ×2 (08:21→20:16)
[2021-02-15 09:00] VITALS: BP 187/79
[2021-02-15] MEDS ORDERED: levoFLOXacin 500MG 100 ML IV SCH (10:00)
[2021-02-15] MEDS: ENOXAPARIN SOD 40 MG/0.4 ML SYRINGE SC SCH (10:00)
[2021-02-15] MEDS: PANTOPRAZOLE 40 MG TAB PO SCH (10:00)
[2021-02-15] MEDS ORDERED: fentaNYL CITRATE 100 MCG/2 ML VL ONE (12:47)
[2021-02-15] MEDS ORDERED: ONDANSETRON HCL 4 MG/2 ML VIAL ONE (12:48)
[2021-02-15] MEDS ORDERED: MIDAZOLAM HCL 2MG/2ML 2ml VIAL (1mg/ml) ONE (12:48)
[2021-02-15] MEDS ORDERED: PROPOFOL 10 MG/ML 20 ML IV ONE (12:48)
[2021-02-15] MEDS ORDERED: LIDOCAINE 2% (LOCAL ANESTH.) PF 5ml SDV ONE (12:48)
[2021-02-15 13:00] VITALS: BP 138/28
[2021-02-15] MEDS ORDERED: ONDANSETRON HCL 4 MG/2 ML VIAL IV PRN (14:00)
[2021-02-15] MEDS ORDERED: HYDROmorphone HCL 2 MG/ML VL IV PRN ×2 (14:00)
[2021-02-15 16:36] VITALS: BP 132/75
[2021-02-15 21:58] VITALS: BP 149/81
[2021-02-15] MEDS: INSULIN LANTUS (GLARGINE) 1 /0.01ml (100units/ml) SC SCH (22:23)
[2021-02-16] MEDS: ACCU-CHEK COMFORT CURVE STRIP VI SCH ×7 (00:39→23:24)
[2021-02-16] MEDS: InsuLIN REG 1unit/0.01ml Soln (100units/ml) SC SCH ×7 (00:47→23:23)
[2021-02-16 05:00] VITALS: BP 128/74
[2021-02-16 05:35] LABS: Basophils # (auto) 0 10 ^3/uL (0-0.2); Basophils % (auto) 0.1 % (0.0-2.0); Eosinophils # (auto) 0.4 10 ^3/uL (0-0.8); Eosinophils % (auto) 2.5 % (0.0-7.0); Hematocrit 29.9 % (41.0-53.0); Lymphocytes # (auto) 0.9 10 ^3/uL (0.4-5.4); Lymphocytes % (auto) 5.6 % (10.0-50.0); Mean Corpuscular Hemoglobin 28.3 pg (28.0-32.0); Mean Corpuscular Hgb Conc. 33.4 g/dL (32.0-36.0); Mean Corpuscular Volume 84.7 fL (80.0-100.0); Monocytes # (auto) 0.8 10 ^3/uL (0-1.3); Monocytes % (auto) 4.9 % (0.0-12.0); Neutrophils # (auto) 13.8 10 ^3/uL (1.6-8.6); Neutrophils % (auto) 86.9 % (37.0-80.0); Red Blood Cells 3.53 10^6/uL (4.5-5.90); Red Cell Distribution Width 13.7 % (11.8-14.3); White Blood Cell 15.9 10^3/uL (4.4-10.8)
[2021-02-16] MEDS: MEROPENEM 1GM IVPB 100 ML IV SCH ×3 (06:02→23:40)
[2021-02-16] MEDS: MORPHINE SULFATE 4 MG/ML SYR/VIAL IV PRN ×4 (06:50→23:25)
[2021-02-16 07:08] LABS: Potassium 3.6 mmol/L (3.5-5.1)
[2021-02-16 07:19] LABS: BUN/Creatinine Ratio 18.7; Calcium 7.7 mg/dL (8.5-10.1); Magnesium 2.4 mg/dL (1.6-2.6)
[2021-02-16] MEDS: SODIUM CHLORIDE 0.9% 1,000 ML IV SCH ×2 (08:00→23:21)
[2021-02-16] MEDS: LINEZOLID 600MG/300ML 300 ML IV SCH ×2 (08:04→20:27)
[2021-02-16 09:00] VITALS: BP 125/76
[2021-02-16] MEDS ORDERED: PANTOPRAZOLE 40 MG/10 ML VIAL INJ IV ONE ×2 (10:45→12:45)
[2021-02-16] MEDS ORDERED: guaiFENesin-DM 100/10mg/5ml SYR PO PRN (10:45)
[2021-02-16] MEDS: ENOXAPARIN SOD 40 MG/0.4 ML SYRINGE SC SCH (11:02)
[2021-02-16] MEDS: PANTOPRAZOLE 40 MG TAB PO SCH (11:02)
[2021-02-16] MEDS: NIFEdipine ER 30 MG TAB PO SCH (11:02)
[2021-02-16 12:58] VITALS: BP 124/67
[2021-02-16] MEDS ORDERED: SUCRALFATE 1 GM/10 ML ORAL SUSP PO ONE (13:00)
[2021-02-16 17:00] VITALS: BP 137/87
[2021-02-16] MEDS: SUCRALFATE 1 GM/10 ML ORAL SUSP PO SCH ×2 (17:21→23:22)
[2021-02-16] MEDS ORDERED: LIDOCAINE 1% (LOCAL ANESTH.) PF 5ml SDV ID ONE (18:30)
[2021-02-16 22:00] VITALS: BP 154/93
[2021-02-16] MEDS: SODIUM CHLOR 0.9% PF (SALINE LOCK) 10ML VIAL/SYR IV SCH (23:21)
[2021-02-16] MEDS: INSULIN LANTUS (GLARGINE) 1 /0.01ml (100units/ml) SC SCH (23:22)
[2021-02-16] MEDS: DAKINS QUARTER STR 0.125% (NaHypochlorite) 473 ML TOPICAL SOL TOP SCH (23:34)
[2021-02-17] MEDS: InsuLIN REG 1unit/0.01ml Soln (100units/ml) SC SCH ×5 (04:28→20:26)
[2021-02-17] MEDS: ACCU-CHEK COMFORT CURVE STRIP VI SCH ×5 (04:30→20:21)
[2021-02-17 05:00] VITALS: BP 118/81
[2021-02-17 05:32] LABS: Basophils # (auto) 0 10 ^3/uL (0-0.2); Basophils % (auto) 0.2 % (0.0-2.0); Eosinophils # (auto) 0.4 10 ^3/uL (0-0.8); Eosinophils % (auto) 3.4 % (0.0-7.0); Hematocrit 32.1 % (41.0-53.0); Hemoglobin 10.5 g/dL (13.5-17.5); Lymphocytes # (auto) 1.7 10 ^3/uL (0.4-5.4); Lymphocytes % (auto) 14.2 % (10.0-50.0); Mean Corpuscular Hgb Conc. 32.8 g/dL (32.0-36.0); Mean Corpuscular Volume 85.5 fL (80.0-100.0); Monocytes # (auto) 0.8 10 ^3/uL (0-1.3); Monocytes % (auto) 6.6 % (0.0-12.0); Neutrophils # (auto) 9.3 10 ^3/uL (1.6-8.6); Neutrophils % (auto) 75.6 % (37.0-80.0); Nucleated Red Blood Cells % 0.2 %; Red Blood Cells 3.76 10^6/uL (4.5-5.90); Red Cell Distribution Width 13.9 % (11.8-14.3); White Blood Cell 12.3 10^3/uL (4.4-10.8)
[2021-02-17 05:50] LABS: INR 1.05 (0.9-1.15); Partial Thromboplastin Time 30.9 sec (23.6-33.0)
[2021-02-17 05:52] LABS: Albumin 1.4 g/dL (3.4-5.0); Anion Gap 8 (5-15); Blood Urea Nitrogen 23 mg/dL (7-18); Calcium 7.6 mg/dL (8.5-10.1); Carbon Dioxide 25 mmol/L (21-32); Chloride 105 mmol/L (98-107); Glucose 114 mg/dL (74-106); Magnesium 2.5 mg/dL (1.6-2.6); Potassium 3.6 mmol/L (3.5-5.1); Sodium 138 mmol/L (136-145)
[2021-02-17 05:58] LABS: Alanine Aminotransferase 12 U/L (16-61); Alkaline Phosphatase 130 U/L (45-117); Aspartate Aminotransferase 12 U/L (15-37); BUN/Creatinine Ratio 15.9; Bilirubin, Total 0.1 mg/dL (0.2-1.0); GFR African American 64 mL/min; GFR Non-African American 53 mL/min; Phosphorus 3.2 mg/dL (2.5-4.90); Total Protein 6.1 g/dL (6.4-8.2); Uric Acid 7.2 mg/dL (3.5-7.2)
[2021-02-17] MEDS: MEROPENEM 1GM IVPB 100 ML IV SCH ×3 (06:32→22:58)
[2021-02-17] MEDS: SUCRALFATE 1 GM/10 ML ORAL SUSP PO SCH ×4 (06:32→22:58)
[2021-02-17 09:00] VITALS: BP 142/90
[2021-02-17] MEDS: PANTOPRAZOLE 40 MG/10 ML VIAL INJ IV SCH (09:17)
[2021-02-17] MEDS: LINEZOLID 600MG/300ML 300 ML IV SCH ×2 (09:17→20:12)
[2021-02-17] MEDS: SODIUM CHLOR 0.9% PF (SALINE LOCK) 10ML VIAL/SYR IV SCH ×2 (09:18→23:10)
[2021-02-17] MEDS: ENOXAPARIN SOD 40 MG/0.4 ML SYRINGE SC SCH (09:18)
[2021-02-17] MEDS: NIFEdipine ER 30 MG TAB PO SCH (09:18)
[2021-02-17] MEDS: SODIUM CHLORIDE 0.9% 1,000 ML IV SCH ×2 (10:40→11:09)
[2021-02-17 13:00] VITALS: BP 165/88
[2021-02-17] MEDS: DAKINS QUARTER STR 0.125% (NaHypochlorite) 473 ML TOPICAL SOL TOP SCH ×2 (14:42→22:59)
[2021-02-17] MEDS: MORPHINE SULFATE 4 MG/ML SYR/VIAL IV PRN ×2 (15:15→20:12)
[2021-02-17 17:00] VITALS: BP 163/90
[2021-02-17] MEDS: LABETALOL HCL 5 MG/ML 4ML SYRINGE IV PRN ×2 (17:44→23:09)
[2021-02-17 22:00] VITALS: BP 158/94
[2021-02-18] MEDS: ACCU-CHEK COMFORT CURVE STRIP VI SCH ×6 (00:01→20:43)
[2021-02-18] MEDS: InsuLIN REG 1unit/0.01ml Soln (100units/ml) SC SCH ×6 (00:01→20:45)
[2021-02-18] MEDS: MORPHINE SULFATE 4 MG/ML SYR/VIAL IV PRN ×5 (00:35→20:53)
[2021-02-18 05:00] VITALS: BP 158/90
[2021-02-18 05:31] LABS: Basophils # (auto) 0 10 ^3/uL (0-0.2); Basophils % (auto) 0.2 % (0.0-2.0); Eosinophils # (auto) 0.4 10 ^3/uL (0-0.8); Hematocrit 27.2 % (41.0-53.0); Hemoglobin 9.2 g/dL (13.5-17.5); Lymphocytes # (auto) 1.4 10 ^3/uL (0.4-5.4); Lymphocytes % (auto) 16.2 % (10.0-50.0); Mean Corpuscular Hemoglobin 28.8 pg (28.0-32.0); Mean Corpuscular Hgb Conc. 33.7 g/dL (32.0-36.0); Mean Corpuscular Volume 85.5 fL (80.0-100.0); Monocytes # (auto) 0.5 10 ^3/uL (0-1.3); Monocytes % (auto) 6.2 % (0.0-12.0); Neutrophils # (auto) 6.3 10 ^3/uL (1.6-8.6); Neutrophils % (auto) 72.4 % (37.0-80.0); Red Blood Cells 3.18 10^6/uL (4.5-5.90); Red Cell Distribution Width 13.6 % (11.8-14.3); White Blood Cell 8.7 10^3/uL (4.4-10.8)
[2021-02-18 05:34] LABS: INR 1.05 (0.9-1.15); Partial Thromboplastin Time 32.9 sec (23.6-33.0)
[2021-02-18 05:41] LABS: Chloride 108 mmol/L (98-107); Potassium 3.6 mmol/L (3.5-5.1); Sodium 139 mmol/L (136-145)
[2021-02-18 05:52] LABS: Alanine Aminotransferase 12 U/L (16-61); Albumin 1.3 g/dL (3.4-5.0); Alkaline Phosphatase 115 U/L (45-117); Anion Gap 6 (5-15); Aspartate Aminotransferase 13 U/L (15-37); BUN/Creatinine Ratio 12.8; Bilirubin, Total 0.1 mg/dL (0.2-1.0); Blood Urea Nitrogen 16 mg/dL (7-18); Calcium 7.4 mg/dL (8.5-10.1); Carbon Dioxide 25 mmol/L (21-32); GFR African American 76 mL/min; GFR Non-African American 63 mL/min; Glucose 102 mg/dL (74-106); Magnesium 2.3 mg/dL (1.6-2.6); Phosphorus 2.9 mg/dL (2.5-4.90); Total Protein 5.6 g/dL (6.4-8.2)
[2021-02-18] MEDS: SUCRALFATE 1 GM/10 ML ORAL SUSP PO SCH ×4 (06:52→20:51)
[2021-02-18] MEDS: MEROPENEM 1GM IVPB 100 ML IV SCH ×2 (06:53→14:23)
[2021-02-18] MEDS: LABETALOL HCL 5 MG/ML 4ML SYRINGE IV PRN ×3 (06:54→21:40)
[2021-02-18 09:00] VITALS: BP 159/88
[2021-02-18] MEDS: DAKINS QUARTER STR 0.125% (NaHypochlorite) 473 ML TOPICAL SOL TOP SCH (10:00)
[2021-02-18] MEDS: PANTOPRAZOLE 40 MG/10 ML VIAL INJ IV SCH (10:02)
[2021-02-18] MEDS: ENOXAPARIN SOD 40 MG/0.4 ML SYRINGE SC SCH (10:02)
[2021-02-18] MEDS: NIFEdipine ER 30 MG TAB PO SCH (10:03)
[2021-02-18] MEDS: SODIUM CHLOR 0.9% PF (SALINE LOCK) 10ML VIAL/SYR IV SCH ×2 (10:03→20:50)
[2021-02-18] MEDS: LINEZOLID 600MG/300ML 300 ML IV SCH ×2 (10:03→20:43)
[2021-02-18] MEDS: SODIUM CHLORIDE 0.9% 1,000 ML IV SCH ×2 (10:03→13:35)
[2021-02-18 13:00] VITALS: BP 159/92
[2021-02-18 17:00] VITALS: BP 189/100
[2021-02-18 17:40] VITALS: BP 160/88
[2021-02-18] MEDS: INSULIN LANTUS (GLARGINE) 1 /0.01ml (100units/ml) SC SCH ×2 (20:52)
[2021-02-18 22:00] VITALS: BP 191/99
[2021-02-19] MEDS: DAKINS QUARTER STR 0.125% (NaHypochlorite) 473 ML TOPICAL SOL TOP SCH ×2 (00:03→10:13)
[2021-02-19] MEDS: MEROPENEM 1GM IVPB 100 ML IV SCH ×4 (00:03→22:10)
[2021-02-19] MEDS: ACCU-CHEK COMFORT CURVE STRIP VI SCH ×6 (00:04→19:46)
[2021-02-19] MEDS: InsuLIN REG 1unit/0.01ml Soln (100units/ml) SC SCH ×6 (00:54→19:48)
[2021-02-19] MEDS: MORPHINE SULFATE 4 MG/ML SYR/VIAL IV PRN ×5 (00:55→19:55)
[2021-02-19] MEDS: LABETALOL HCL 5 MG/ML 4ML SYRINGE IV PRN ×4 (01:17→13:30)
[2021-02-19 05:00] VITALS: BP 168/92
[2021-02-19] MEDS: SODIUM CHLORIDE 0.9% 1,000 ML IV SCH ×2 (05:11→15:53)
[2021-02-19] MEDS: SUCRALFATE 1 GM/10 ML ORAL SUSP PO SCH ×4 (05:12→22:11)
[2021-02-19] MEDS: LINEZOLID 600MG/300ML 300 ML IV SCH ×2 (08:36→20:00)
[2021-02-19 09:00] VITALS: BP 166/93
[2021-02-19] MEDS: NIFEdipine ER 30 MG TAB PO SCH (10:11)
[2021-02-19] MEDS: ENOXAPARIN SOD 40 MG/0.4 ML SYRINGE SC SCH (10:12)
[2021-02-19] MEDS: PANTOPRAZOLE 40 MG/10 ML VIAL INJ IV SCH (10:12)
[2021-02-19] MEDS: SODIUM CHLOR 0.9% PF (SALINE LOCK) 10ML VIAL/SYR IV SCH ×2 (10:13→21:58)
[2021-02-19 13:00] VITALS: BP 156/90
[2021-02-19] MEDS ORDERED: LOSARTAN POTASSIUM 50 MG TAB PO ONE (14:00)
[2021-02-19 17:00] VITALS: BP 164/95
[2021-02-19 22:00] VITALS: BP 146/85
[2021-02-19] MEDS: INSULIN LANTUS (GLARGINE) 1 /0.01ml (100units/ml) SC SCH (22:12)
[2021-02-20] MEDS: InsuLIN REG 1unit/0.01ml Soln (100units/ml) SC SCH ×6 (00:44→23:42)
[2021-02-20] MEDS: DAKINS QUARTER STR 0.125% (NaHypochlorite) 473 ML TOPICAL SOL TOP SCH ×3 (00:44→22:00)
[2021-02-20] MEDS: ACCU-CHEK COMFORT CURVE STRIP VI SCH ×6 (00:44→22:59)
[2021-02-20] MEDS: MORPHINE SULFATE 4 MG/ML SYR/VIAL IV PRN ×4 (00:44→21:24)
[2021-02-20 05:00] VITALS: BP 155/85
[2021-02-20 05:33] LABS: Basophils # (auto) 0 10 ^3/uL (0-0.2); Basophils % (auto) 0.5 % (0.0-2.0); Eosinophils # (auto) 0.5 10 ^3/uL (0-0.8); Eosinophils % (auto) 6.6 % (0.0-7.0); Hematocrit 29.8 % (41.0-53.0); Lymphocytes # (auto) 1.7 10 ^3/uL (0.4-5.4); Mean Corpuscular Hemoglobin 28.6 pg (28.0-32.0); Mean Corpuscular Hgb Conc. 33.6 g/dL (32.0-36.0); Mean Corpuscular Volume 85.2 fL (80.0-100.0); Monocytes # (auto) 0.5 10 ^3/uL (0-1.3); Monocytes % (auto) 7.5 % (0.0-12.0); Neutrophils # (auto) 4.1 10 ^3/uL (1.6-8.6); Neutrophils % (auto) 60.4 % (37.0-80.0); Red Cell Distribution Width 13.9 % (11.8-14.3); White Blood Cell 6.8 10^3/uL (4.4-10.8)
[2021-02-20] MEDS: MEROPENEM 1GM IVPB 100 ML IV SCH (06:09)
[2021-02-20] MEDS: SUCRALFATE 1 GM/10 ML ORAL SUSP PO SCH ×4 (06:09→22:25)
[2021-02-20 06:19] LABS: BUN/Creatinine Ratio 10.9; Calcium 8.3 mg/dL (8.5-10.1)
[2021-02-20] MEDS ORDERED: LIDOCAINE 1% HCL (LOCAL ANESTH.) INJ 20ML MDV ONE ×2 (07:20→07:45)
[2021-02-20] MEDS ORDERED: BUPIVACAINE HCL 50 ML ONE (07:20)
[2021-02-20] MEDS ORDERED: DAKINS QUARTER STR 0.125% (NaHypochlorite) 473 ML TOPICAL SOL TOP ONE (07:30)
[2021-02-20] MEDS: LINEZOLID 600MG/300ML 300 ML IV SCH (07:39)
[2021-02-20] MEDS ORDERED: SUCCINYLCHOLINE CHLORIDE 20 MG/ML 10ML VIAL IV ONE (07:45)
[2021-02-20] MEDS ORDERED: METOCLOPRAMIDE HCL 5MG/ml INJ 2ml VIAL IV PRN (07:45)
[2021-02-20] MEDS ORDERED: HYDROmorphone HCL 2 MG/ML VL IV PRN (07:45)
[2021-02-20] MEDS ORDERED: MORPHINE SULFATE 4 MG/ML SYR/VIAL IV PRN (07:45)
[2021-02-20] MEDS ORDERED: fentaNYL CITRATE 100 MCG/2 ML VL ONE (07:47)
[2021-02-20] MEDS ORDERED: PROPOFOL 10 MG/ML 20 ML IV ONE (07:48)
[2021-02-20] MEDS ORDERED: SODIUM CHLORIDE LOCK 10 ML ONE (07:48)
[2021-02-20] MEDS ORDERED: MIDAZOLAM HCL 2MG/2ML 2ml VIAL (1mg/ml) ONE (07:48)
[2021-02-20] MEDS ORDERED: ONDANSETRON HCL 4 MG/2 ML VIAL ONE (07:48)
[2021-02-20] MEDS ORDERED: LIDOCAINE 2% (LOCAL ANESTH.) PF 5ml SDV ONE (08:54)
[2021-02-20] MEDS: PANTOPRAZOLE 40 MG/10 ML VIAL INJ IV SCH (10:00)
[2021-02-20] MEDS: SODIUM CHLOR 0.9% PF (SALINE LOCK) 10ML VIAL/SYR IV SCH ×2 (10:00→22:24)
[2021-02-20] MEDS: NIFEdipine ER 30 MG TAB PO SCH (10:00)
[2021-02-20] MEDS: hydrALAZINE HCL 20 MG/ML VL IV PRN ×2 (10:00→16:45)
[2021-02-20] MEDS: ENOXAPARIN SOD 40 MG/0.4 ML SYRINGE SC SCH (10:00)
[2021-02-20] MEDS: SODIUM CHLORIDE 0.9% 1,000 ML IV SCH (10:15)
[2021-02-20] MEDS: LOSARTAN POTASSIUM 50 MG TAB PO SCH (10:26)
[2021-02-20 13:00] VITALS: BP 153/80
[2021-02-20] MEDS ORDERED: DEXTROSE (50%) 50ML SYRG IV PRN (15:15)
[2021-02-20] MEDS: AMPICILLIN & SULBACTAM SODIUM 3 GM in SODIUM CHL 0.9% 100 ML IV SCH ×2 (16:47→21:19)
[2021-02-20 17:00] VITALS: BP 190/111
[2021-02-20 20:00] VITALS: BP 147/62
[2021-02-20 22:00] VITALS: BP 145/88
[2021-02-20] MEDS: METOPROLOL TARTRATE 25 MG TAB PO SCH (22:39)
[2021-02-20] MEDS: INSULIN LANTUS (GLARGINE) 1 /0.01ml (100units/ml) SC SCH (23:42)
[2021-02-21] VITALS (8 sets, daily range): BP systolic 144–157; BP diastolic 78–86
[2021-02-21] MEDS: AMPICILLIN & SULBACTAM SODIUM 3 GM in SODIUM CHL 0.9% 100 ML IV SCH ×4 (03:13→20:58)
[2021-02-21] MEDS: MORPHINE SULFATE 4 MG/ML SYR/VIAL IV PRN ×4 (03:25→22:21)
[2021-02-21] MEDS: ACCU-CHEK COMFORT CURVE STRIP VI SCH ×4 (06:04→23:37)
[2021-02-21] MEDS: InsuLIN REG 1unit/0.01ml Soln (100units/ml) SC SCH ×4 (06:07→23:39)
[2021-02-21] MEDS: SUCRALFATE 1 GM/10 ML ORAL SUSP PO SCH ×4 (06:21→22:11)
[2021-02-21] MEDS: SODIUM CHLORIDE 0.9% 1,000 ML IV SCH (06:21)
[2021-02-21 06:23] LABS: Basophils # (auto) 0.1 10 ^3/uL (0-0.2); Basophils % (auto) 0.5 % (0.0-2.0); Eosinophils # (auto) 0.3 10 ^3/uL (0-0.8); Hematocrit 27.8 % (41.0-53.0); Hemoglobin 9.3 g/dL (13.5-17.5); Lymphocytes # (auto) 1.4 10 ^3/uL (0.4-5.4); Mean Corpuscular Hemoglobin 28.6 pg (28.0-32.0); Mean Corpuscular Hgb Conc. 33.6 g/dL (32.0-36.0); Mean Corpuscular Volume 85.1 fL (80.0-100.0); Monocytes # (auto) 0.9 10 ^3/uL (0-1.3); Monocytes % (auto) 7.8 % (0.0-12.0); Neutrophils # (auto) 8.4 10 ^3/uL (1.6-8.6); Neutrophils % (auto) 75.7 % (37.0-80.0); Red Blood Cells 3.27 10^6/uL (4.5-5.90); Red Cell Distribution Width 13.7 % (11.8-14.3); White Blood Cell 11.1 10^3/uL (4.4-10.8)
[2021-02-21 06:43] LABS: BUN/Creatinine Ratio 18.9; Calcium 7.6 mg/dL (8.5-10.1); Potassium 3.7 mmol/L (3.5-5.1)
[2021-02-21] MEDS: ENOXAPARIN SOD 40 MG/0.4 ML SYRINGE SC SCH (10:28)
[2021-02-21] MEDS: NIFEdipine ER 30 MG TAB PO SCH (10:28)
[2021-02-21] MEDS: METOPROLOL TARTRATE 25 MG TAB PO SCH ×2 (10:28→22:11)
[2021-02-21] MEDS: PANTOPRAZOLE 40 MG TAB PO SCH (10:28)
[2021-02-21] MEDS: LOSARTAN POTASSIUM 50 MG TAB PO SCH (10:28)
[2021-02-21] MEDS: hydrALAZINE HCL 20 MG/ML VL IV PRN (13:01)
[2021-02-21] MEDS ORDERED: MET25T PO (13:52)
[2021-02-21] MEDS ORDERED: DOCU-94 PO (13:52)
[2021-02-21] MEDS ORDERED: PANT40TA2 PO (13:52)
[2021-02-21] MEDS ORDERED: INSLANTI SC (13:52)
[2021-02-21] MEDS ORDERED: NIFE1TAB30 PO (13:52)
[2021-02-21] MEDS ORDERED: LOSA-69 PO (13:52)
[2021-02-21] MEDS ORDERED: SACC250C PO (14:23)
[2021-02-21] MEDS: INSULIN LANTUS (GLARGINE) 1 /0.01ml (100units/ml) SC SCH (22:52)
[2021-02-22] MEDS: AMPICILLIN & SULBACTAM SODIUM 3 GM in SODIUM CHL 0.9% 100 ML IV SCH ×4 (03:15→21:47)
[2021-02-22 05:00] VITALS: BP 149/83
[2021-02-22] MEDS: SUCRALFATE 1 GM/10 ML ORAL SUSP PO SCH ×4 (06:02→21:47)
[2021-02-22] MEDS: ACCU-CHEK COMFORT CURVE STRIP VI SCH ×3 (06:02→16:55)
[2021-02-22] MEDS: MORPHINE SULFATE 4 MG/ML SYR/VIAL IV PRN ×4 (06:03→22:10)
[2021-02-22] MEDS: InsuLIN REG 1unit/0.01ml Soln (100units/ml) SC SCH ×3 (06:06→16:54)
[2021-02-22 08:39] VITALS: BP 150/85
[2021-02-22] MEDS: LOSARTAN POTASSIUM 50 MG TAB PO SCH (09:09)
[2021-02-22] MEDS: METOPROLOL TARTRATE 25 MG TAB PO SCH ×2 (09:09→22:10)
[2021-02-22] MEDS: NIFEdipine ER 30 MG TAB PO SCH (09:10)
[2021-02-22] MEDS: PANTOPRAZOLE 40 MG TAB PO SCH (09:10)
[2021-02-22] MEDS: ENOXAPARIN SOD 40 MG/0.4 ML SYRINGE SC SCH (09:11)
[2021-02-22] MEDS: hydrALAZINE HCL 20 MG/ML VL IV PRN (12:17)
[2021-02-22 12:30] VITALS: BP 161/98
[2021-02-22 16:39] VITALS: BP 137/85
[2021-02-22 22:00] VITALS: BP 150/84
[2021-02-22] MEDS: INSULIN LANTUS (GLARGINE) 1 /0.01ml (100units/ml) SC SCH (22:16)
[2021-02-23] MEDS: ACCU-CHEK COMFORT CURVE STRIP VI SCH ×5 (00:52→22:35)
[2021-02-23] MEDS: InsuLIN REG 1unit/0.01ml Soln (100units/ml) SC SCH ×5 (01:19→22:35)
[2021-02-23] MEDS: MORPHINE SULFATE 4 MG/ML SYR/VIAL IV PRN ×5 (02:03→20:31)
[2021-02-23] MEDS: AMPICILLIN & SULBACTAM SODIUM 3 GM in SODIUM CHL 0.9% 100 ML IV SCH ×4 (02:22→20:31)
[2021-02-23 05:00] VITALS: BP 144/82
[2021-02-23] MEDS: SUCRALFATE 1 GM/10 ML ORAL SUSP PO SCH ×4 (06:38→22:14)
[2021-02-23 09:00] VITALS: BP 160/92
[2021-02-23] MEDS ORDERED: HYDROcodone-ACET 5/325MG TAB PO PRN (09:45)
[2021-02-23] MEDS: NIFEdipine ER 30 MG TAB PO SCH ×2 (09:53→10:03)
[2021-02-23] MEDS: PANTOPRAZOLE 40 MG TAB PO SCH (09:53)
[2021-02-23] MEDS: ENOXAPARIN SOD 40 MG/0.4 ML SYRINGE SC SCH ×2 (09:53→10:02)
[2021-02-23] MEDS: DOCUSATE SOD 100 MG CAP PO SCH ×3 (10:00→22:14)
[2021-02-23] MEDS: METOPROLOL TARTRATE 25 MG TAB PO SCH ×2 (10:05→22:15)
[2021-02-23] MEDS: LOSARTAN POTASSIUM 50 MG TAB PO SCH (10:12)
[2021-02-23 13:00] VITALS: BP 163/97
[2021-02-23] MEDS: hydrALAZINE HCL 20 MG/ML VL IV PRN (13:48)
[2021-02-23 16:35] VITALS: BP 141/81
[2021-02-23 22:00] VITALS: BP 147/78
[2021-02-23] MEDS: INSULIN LANTUS (GLARGINE) 1 /0.01ml (100units/ml) SC SCH (22:34)
[2021-02-24] MEDS: AMPICILLIN & SULBACTAM SODIUM 3 GM in SODIUM CHL 0.9% 100 ML IV SCH ×4 (02:33→21:30)
[2021-02-24] MEDS: MORPHINE SULFATE 4 MG/ML SYR/VIAL IV PRN ×4 (02:38→21:00)
[2021-02-24 05:00] VITALS: BP 162/85
[2021-02-24] MEDS: hydrALAZINE HCL 20 MG/ML VL IV PRN (05:54)
[2021-02-24] MEDS: InsuLIN REG 1unit/0.01ml Soln (100units/ml) SC SCH ×4 (05:56→22:55)
[2021-02-24] MEDS: ACCU-CHEK COMFORT CURVE STRIP VI SCH ×3 (06:00→18:00)
[2021-02-24] MEDS: SUCRALFATE 1 GM/10 ML ORAL SUSP PO SCH ×4 (06:53→22:48)
[2021-02-24 09:00] VITALS: BP 162/85
[2021-02-24] MEDS: ENOXAPARIN SOD 40 MG/0.4 ML SYRINGE SC SCH (09:19)
[2021-02-24] MEDS: DOCUSATE SOD 100 MG CAP PO SCH ×2 (09:19→22:00)
[2021-02-24] MEDS: LOSARTAN POTASSIUM 50 MG TAB PO SCH (09:22)
[2021-02-24] MEDS: METOPROLOL TARTRATE 25 MG TAB PO SCH ×2 (09:23→22:48)
[2021-02-24] MEDS: NIFEdipine ER 30 MG TAB PO SCH (09:26)
[2021-02-24] MEDS: PANTOPRAZOLE 40 MG TAB PO SCH (09:26)
[2021-02-24 13:00] VITALS: BP 124/72
[2021-02-24 17:00] VITALS: BP 139/76
[2021-02-24 22:00] VITALS: BP 158/90
[2021-02-24] MEDS: INSULIN LANTUS (GLARGINE) 1 /0.01ml (100units/ml) SC SCH (22:55)
[2021-02-25] MEDS: AMPICILLIN & SULBACTAM SODIUM 3 GM in SODIUM CHL 0.9% 100 ML IV SCH ×4 (03:25→21:00)
[2021-02-25] MEDS: MORPHINE SULFATE 4 MG/ML SYR/VIAL IV PRN ×4 (04:54→21:00)
[2021-02-25 04:56] LABS: Basophils # (auto) 0 10 ^3/uL (0-0.2); Eosinophils # (auto) 0.4 10 ^3/uL (0-0.8); Hemoglobin 8.3 g/dL (13.5-17.5); Lymphocytes # (auto) 1.5 10 ^3/uL (0.4-5.4)
[2021-02-25 04:59] LABS: Basophils % (auto) 0.4 % (0.0-2.0); Eosinophils % (auto) 4.3 % (0.0-7.0); Hematocrit 25.2 % (41.0-53.0); Lymphocytes % (auto) 17.7 % (10.0-50.0); Mean Corpuscular Hemoglobin 28.1 pg (28.0-32.0); Mean Corpuscular Hgb Conc. 33.1 g/dL (32.0-36.0); Mean Corpuscular Volume 85.1 fL (80.0-100.0); Monocytes # (auto) 0.6 10 ^3/uL (0-1.3); Monocytes % (auto) 6.4 % (0.0-12.0); Neutrophils # (auto) 6.2 10 ^3/uL (1.6-8.6); Neutrophils % (auto) 71.2 % (37.0-80.0); Nucleated Red Blood Cells % 0.1 %; Red Blood Cells 2.96 10^6/uL (4.5-5.90); Red Cell Distribution Width 13.7 % (11.8-14.3); White Blood Cell 8.7 10^3/uL (4.4-10.8)
[2021-02-25 05:00] VITALS: BP 154/88
[2021-02-25 05:08] LABS: INR 1.06 (0.9-1.15)
[2021-02-25 05:12] LABS: Albumin 1.4 g/dL (3.4-5.0); Calcium 7.9 mg/dL (8.5-10.1); Magnesium 2.2 mg/dL (1.6-2.6); Potassium 3.4 mmol/L (3.5-5.1)
[2021-02-25 05:16] LABS: BUN/Creatinine Ratio 12.2; Bilirubin, Total 0.2 mg/dL (0.2-1.0); Phosphorus 3.2 mg/dL (2.5-4.90); Total Protein 5.8 g/dL (6.4-8.2)
[2021-02-25] MEDS: ACCU-CHEK COMFORT CURVE STRIP VI SCH ×5 (06:00→23:30)
[2021-02-25] MEDS: InsuLIN REG 1unit/0.01ml Soln (100units/ml) SC SCH ×4 (06:37→23:30)
[2021-02-25] MEDS: SUCRALFATE 1 GM/10 ML ORAL SUSP PO SCH ×4 (06:39→22:10)
[2021-02-25] MEDS: hydrALAZINE HCL 20 MG/ML VL IV PRN (06:41)
[2021-02-25] MEDS: NIFEdipine ER 30 MG TAB PO SCH (08:46)
[2021-02-25] MEDS: LOSARTAN POTASSIUM 50 MG TAB PO SCH (08:46)
[2021-02-25] MEDS: METOPROLOL TARTRATE 25 MG TAB PO SCH ×2 (08:46→22:11)
[2021-02-25] MEDS: DOCUSATE SOD 100 MG CAP PO SCH ×2 (08:46→22:00)
[2021-02-25] MEDS: PANTOPRAZOLE 40 MG TAB PO SCH (08:46)
[2021-02-25] MEDS: ENOXAPARIN SOD 40 MG/0.4 ML SYRINGE SC SCH (08:47)
[2021-02-25 09:00] VITALS: BP 158/93
[2021-02-25] MEDS ORDERED: POTASSIUM CHL 20 Meq TABLET PO ONE (10:30)
[2021-02-25 13:00] VITALS: BP 153/94
[2021-02-25 17:00] VITALS: BP 127/77
[2021-02-25 22:00] VITALS: BP 151/87
[2021-02-25] MEDS: INSULIN LANTUS (GLARGINE) 1 /0.01ml (100units/ml) SC SCH (22:10)
[2021-02-26] MEDS: AMPICILLIN & SULBACTAM SODIUM 3 GM in SODIUM CHL 0.9% 100 ML IV SCH ×4 (03:04→22:04)
[2021-02-26 05:22] VITALS: BP 155/81
[2021-02-26 05:41] LABS: Calcium 8.1 mg/dL (8.5-10.1); Potassium 3.5 mmol/L (3.5-5.1)
[2021-02-26] MEDS: ACCU-CHEK COMFORT CURVE STRIP VI SCH ×3 (06:09→18:06)
[2021-02-26] MEDS: hydrALAZINE HCL 20 MG/ML VL IV PRN (06:09)
[2021-02-26] MEDS: SUCRALFATE 1 GM/10 ML ORAL SUSP PO SCH ×4 (06:09→22:06)
[2021-02-26] MEDS: InsuLIN REG 1unit/0.01ml Soln (100units/ml) SC SCH ×3 (06:20→17:48)
[2021-02-26 09:00] VITALS: BP 157/76
[2021-02-26] MEDS: DOCUSATE SOD 100 MG CAP PO SCH (09:55)
[2021-02-26] MEDS: MORPHINE SULFATE 4 MG/ML SYR/VIAL IV PRN ×3 (09:59→22:07)
[2021-02-26 13:00] VITALS: BP 129/77
[2021-02-26] MEDS: LOSARTAN POTASSIUM 50 MG TAB PO SCH (14:12)
[2021-02-26] MEDS: PANTOPRAZOLE 40 MG TAB PO SCH (14:13)
[2021-02-26] MEDS: METOPROLOL TARTRATE 25 MG TAB PO SCH ×2 (14:13→22:06)
[2021-02-26] MEDS: NIFEdipine ER 30 MG TAB PO SCH (14:13)
[2021-02-26] MEDS: ENOXAPARIN SOD 40 MG/0.4 ML SYRINGE SC SCH (14:14)
[2021-02-26 17:00] VITALS: BP 152/87
[2021-02-26 21:50] VITALS: BP 146/87
[2021-02-26] MEDS: INSULIN LANTUS (GLARGINE) 1 /0.01ml (100units/ml) SC SCH (22:05)
[2021-02-27] MEDS: ACCU-CHEK COMFORT CURVE STRIP VI SCH ×5 (00:10→23:33)
[2021-02-27] MEDS: InsuLIN REG 1unit/0.01ml Soln (100units/ml) SC SCH ×5 (00:11→23:34)
[2021-02-27] MEDS: AMPICILLIN & SULBACTAM SODIUM 3 GM in SODIUM CHL 0.9% 100 ML IV SCH ×4 (03:22→21:43)
[2021-02-27 05:00] VITALS: BP 132/84
[2021-02-27] MEDS: SUCRALFATE 1 GM/10 ML ORAL SUSP PO SCH ×4 (06:28→21:44)
[2021-02-27 09:00] VITALS: BP 149/90
[2021-02-27] MEDS: LOSARTAN POTASSIUM 50 MG TAB PO SCH (10:34)
[2021-02-27] MEDS: NIFEdipine ER 30 MG TAB PO SCH (10:35)
[2021-02-27] MEDS: METOPROLOL TARTRATE 25 MG TAB PO SCH ×2 (10:35→21:44)
[2021-02-27] MEDS: ENOXAPARIN SOD 40 MG/0.4 ML SYRINGE SC SCH (10:36)
[2021-02-27] MEDS: PANTOPRAZOLE 40 MG TAB PO SCH (10:36)
[2021-02-27] MEDS: MORPHINE SULFATE 4 MG/ML SYR/VIAL IV PRN ×3 (11:09→21:50)
[2021-02-27 13:00] VITALS: BP 157/93
[2021-02-27 16:39] VITALS: BP 119/79
[2021-02-27 22:00] VITALS: BP 140/86
[2021-02-27] MEDS: INSULIN LANTUS (GLARGINE) 1 /0.01ml (100units/ml) SC SCH (23:34)
[2021-02-28] MEDS: MORPHINE SULFATE 4 MG/ML SYR/VIAL IV PRN ×4 (02:03→16:20)
[2021-02-28] MEDS: AMPICILLIN & SULBACTAM SODIUM 3 GM in SODIUM CHL 0.9% 100 ML IV SCH ×3 (03:00→16:19)
[2021-02-28 05:00] VITALS: BP 145/86
[2021-02-28] MEDS: InsuLIN REG 1unit/0.01ml Soln (100units/ml) SC SCH ×2 (06:00→12:23)
[2021-02-28] MEDS: ACCU-CHEK COMFORT CURVE STRIP VI SCH ×2 (06:23→12:22)
[2021-02-28] MEDS: SUCRALFATE 1 GM/10 ML ORAL SUSP PO SCH ×2 (06:24→12:22)
[2021-02-28 08:37] VITALS: BP 149/85
[2021-02-28] MEDS: NIFEdipine ER 30 MG TAB PO SCH (12:21)
[2021-02-28] MEDS: METOPROLOL TARTRATE 25 MG TAB PO SCH (12:21)
[2021-02-28] MEDS: LOSARTAN POTASSIUM 50 MG TAB PO SCH (12:21)
[2021-02-28] MEDS: PANTOPRAZOLE 40 MG TAB PO SCH (12:22)
[2021-02-28] MEDS: ENOXAPARIN SOD 40 MG/0.4 ML SYRINGE SC SCH (12:22)
[2021-02-28 13:39] VITALS: BP 130/80
[2021-02-28 16:30] VITALS: BP 144/88
== END 2021-02-28 18:25 | disposition home health service (06) | DRG 854 ==
LOC: ER 12:27 → OVERFLOW 15:48 → CENTRAL 23:19 → TELE-CENTR 02-15 17:33 → CENTRAL 02-23 01:29
PROVIDERS: ADMIT Family Medicine; ATTEND Internal Medicine
PROC: 0Y6N0ZF Detachment at Left Foot, Partial 5th Ray, Open Approach (ICD-10-PCS; 2021-02-15)
PROC: 0Y6N0ZD Detachment at Left Foot, Partial 4th Ray, Open Approach (ICD-10-PCS; principal; 2021-02-15 12:45)
PROC: 0Y6N0Z0 Detachment at Left Foot, Complete, Open Approach (ICD-10-PCS; 2021-02-20)
DX: A41.9 Sepsis, unspecified organism (principal); E11.52 Type 2 diabetes mellitus with diabetic peripheral angiopathy with gangrene; M00.9 Pyogenic arthritis, unspecified; E87.1 Hypo-osmolality and hyponatremia; N17.9 Acute kidney failure, unspecified; M86.8X7 Other osteomyelitis, ankle and foot; I16.0 Hypertensive urgency; E11.65 Type 2 diabetes mellitus with hyperglycemia; E86.0 Dehydration; Z20.822 Contact with and (suspected) exposure to COVID-19; E11.21 Type 2 diabetes mellitus with diabetic nephropathy; E11.40 Type 2 diabetes mellitus with diabetic neuropathy, unspecified; E11.621 Type 2 diabetes mellitus with foot ulcer; E11.69 Type 2 diabetes mellitus with other specified complication; E78.5 Hyperlipidemia, unspecified; E66.9 Obesity, unspecified; E87.6 Hypokalemia; D64.9 Anemia, unspecified; I10 Essential (primary) hypertension; L97.509 Non-pressure chronic ulcer of other part of unspecified foot with unspecified severity; Z82.3 Family history of stroke; Z82.49 Family history of ischemic heart disease and other diseases of the circulatory system; Z83.3 Family history of diabetes mellitus; Z86.16 Personal history of COVID-19; Z87.891 Personal history of nicotine dependence; Z91.19 Patient's noncompliance with other medical treatment and regimen; Z88.8 Allergy status to other drugs, medicaments and biological substances; Z68.29 Body mass index [BMI] 29.0-29.9, adult
CPT/HCPCS: 36415; 36569; 71045; 73630; 73700; 80048; 80053; 80061; 82306; 82962; 83036; 83605; 83735; 83880; 84100; 84443; 84484; 84550; 85025; 85610; 85652; 85730; 87040; 87070; 87075; 87076; 87077; 87186; 87205; 87426; 93970; 96361; 96365; 97116; 97163; 97530; C9113; G0378; J0330; J1815; J2001; J2185; J2250; J2405; J2543; J2704; J3490

== ENCOUNTER 2024-03-23 22:25 | Emergency (ER) | payer BC, OTHER ==
[~2024-03-23] VITALS: Ht 182.9 cm; Wt 113.0 kg
[~2024-03-23 22:25] MED LIST changes: +DOCU-94 PO; +IBUP-1456 PO; -IBUP800T27 PO; +INSLANTI SC; -LOSA-69 PO; +MET25T PO; +NIFE1TAB30 PO; -NIFE90TA25 PO; +PANT40TA2 PO; +SACC250C PO
[2024-03-23 22:57] LABS: Basophils # (auto) 0 10 ^3/uL (0-0.2); Basophils % (auto) 0.5 % (0.0-2.0); Eosinophils # (auto) 0.7 10 ^3/uL (0-0.8); Eosinophils % (auto) 7.1 % (0.0-7.0); Hematocrit 28.5 % (41.0-53.0); Hemoglobin 9.6 g/dL (13.5-17.5); Lymphocytes # (auto) 1.2 10 ^3/uL (0.4-5.4); Lymphocytes % (auto) 13.2 % (10.0-50.0); Mean Corpuscular Hemoglobin 29.3 pg (28.0-32.0); Mean Corpuscular Hgb Conc. 33.7 g/dL (32.0-36.0); Mean Corpuscular Volume 86.9 fL (80.0-100.0); Monocytes # (auto) 0.6 10 ^3/uL (0-1.3); Monocytes % (auto) 6.3 % (0.0-12.0); Neutrophils # (auto) 6.9 10 ^3/uL (1.6-8.6); Neutrophils % (auto) 72.9 % (37.0-80.0); Platelet Count (auto) 215 10^3/uL (140-450); Red Blood Cells 3.28 10^6/uL (4.5-5.90); Red Cell Distribution Width 15.1 % (11.8-14.3); White Blood Cell 9.4 10^3/uL (4.4-10.8)
[2024-03-23 23:15] LABS: Alanine Aminotransferase 59 U/L (7-40); Alkaline Phosphatase 161 U/L (46-116); Anion Gap 10 (5-15); Aspartate Aminotransferase 39 U/L (13-40); BUN/Creatinine Ratio 15.5 (10.0-20.0); Blood Urea Nitrogen 76 mg/dL (9-23); Calcium 8.4 mg/dL (8.7-10.4); Carbon Dioxide 19 mmol/L (20-31); Chloride 108 mmol/L (98-107); Glucose 270 mg/dL (74-106); Magnesium 2.6 mg/dL (1.6-2.6); Potassium 4.6 mmol/L (3.5-5.1); Sodium 137 mmol/L (136-145)
[2024-03-23 23:16] LABS: Bilirubin, Total 0.3 mg/dL (0.2-1.0)
[2024-03-24 00:40] VITALS: PULSE 92; RESP 14; O2SAT 97
[2024-03-24] MEDS: FUROSEMIDE 100 MG/10ML VIAL IV ONE (00:45)
[2024-03-24 01:39] LABS: Urine Bacteria None Seen /hpf (None Seen)
[2024-03-24 02:18] LABS: Urine Blood TRACE /uL (Negative); Urine Clarity Clear (Clear); Urine Color Colorless (Yellow); Urine Protein, UAD 3+ (Negative); Urine Specific Gravity 1.012 (1.001-1.035); Urine Urobilinogen Normal (Negative); Urine WBC 1 /hpf (0 - 3)
[2024-03-24 02:24] LABS: COVID19 ANTIGEN SOFIA FIA NEGATIVE (NEGATIVE)
[2024-03-24 03:34] VITALS: BP 179/90; PULSE 83; RESP 11; TEMP 98; O2SAT 96
== END 2024-03-24 04:28 | disposition short-term general hospital (02) ==
LOC: ER 22:25 → EDBD 22:25 → ER 03-24 04:28
DX: I12.0 Hypertensive chronic kidney disease with stage 5 chronic kidney disease or end stage renal disease (principal); E11.22 Type 2 diabetes mellitus with diabetic chronic kidney disease; N18.6 End stage renal disease; K21.9 Gastro-esophageal reflux disease without esophagitis; R06.00 Dyspnea, unspecified; R09.89 Other specified symptoms and signs involving the circulatory and respiratory systems; Z79.84 Long term (current) use of oral hypoglycemic drugs; Z99.2 Dependence on renal dialysis; Z98.890 Other specified postprocedural states; Z20.822 Contact with and (suspected) exposure to COVID-19
CPT/HCPCS: 36415; 71045; 80053; 81001; 83605; 83735; 83880; 84484; 85025; 87426; 93005; 96374; 99285; J1940